=== PATIENT | male | born 1930 | race Caucasian/White ===

== ENCOUNTER → 2016-07-27 | Outpatient (CLI) | payer MEDICARE, BC ==
[2016-07-27 18:01] LABS: Blood Urea Nitrogen 19 mg/dL (9-20); Non-African American GFR(MDRD) >60 (>60 ml/min/1.73 sqM)
--- NOTE | 2016-07-27 19:15 | CT ---
EXAMINATION TYPE: CT angio thoracic/abd aorta DATE OF EXAM: 07/27/2016 6:58 PM COMPARISON: NONE HISTORY: Follow-up AAA. CT DLP: 1020.00 mGycm Automated exposure control for dose reduction was used. TECHNIQUE: Performed without and with IV Contrast, patient injected with 100 mL of Omnipaque 350. There are 3-D post processed images.. FINDINGS: Thoracic and abdominal aorta are atheromatous. There is patchy scarring and atelectasis at the lung b ases. There is a fusiform aneurysm of the lower abdominal aorta below the renal arteries. This measur es up to 5.4 cm in anterior posterior dimension. There is 2.5 cm thrombus on the anterior wall. Liver shows no focal defect. Bile ducts are not dilated. There is no pancreatic mass. There are small enhancing nodules in the spleen that could relate to hemangiomata. There is a 3 cm left renal cortic al cyst. There is no hydronephrosis. There are left renal parapelvic cysts. There is no retroperitone al adenopathy. There is dilation there are multilevel spondylotic changes in the thoracic and lumbar spine. Of the common iliac arteries. These measure up to 2 cm. 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 THIS MEASURES UP TO 5.6 CM IN DIAM ETER AND MEASURES SLIGHTLY LARGER THAN OLD EXAM WHEN IT MEASURES 5.1 CM. NO EVIDENCE OF LEAKAGE. 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 THERE IS PATCHY SCARRING AND ATELECTASIS AT THE MARIA LUISA NG BASES THAT IS SLIGHTLY IMPROVED COMPARED TO OLD EXAM.
== END ==
LOC: RADCTMAIN 07-20 17:21
PROVIDERS: ATTEND Internal Medicine
DX: I71.4 Abdominal aortic aneurysm, without rupture (principal)
CPT/HCPCS: 82565; 84520; 75635; 71275; 36415; Q9967

== ENCOUNTER 2016-12-11 07:29 | Day surgery (SDC) | payer MEDICARE, BC ==
[2016-12-10 09:50] VITALS: BMI 29.0
[~2016-12-11 07:29] MED LIST: LACTATED RINGERS 1,000 ML IV SCH
[2016-12-11 08:19] VITALS: TEMP 97.7
[2016-12-11] MEDS ORDERED: LIDOCAINE 1% 20 ML VIAL (10MG/ML) FOR IV START INTRADERMA ONE (08:19)
[2016-12-11] MEDS ORDERED: ePHEDrine SULFATE/0.9% NACL/PF 50 MG/5 ML SYRINGE IV ONE (08:21)
[2016-12-11] MEDS ORDERED: PROPOFOL 10 MG/ML 20 ML VIAL IV ONE (08:21)
[2016-12-11 08:33] LABS: Glucose,Whole Blood 131 mg/dL (75-99)
--- NOTE | 2016-12-11 08:49 | P.DS ---
Providers Attending physician: Molly Matt Primary care physician: Pattie Torres Plan - Discharge Summary New Discharge Prescriptions: No Action Losartan [Cozaar] 25 mg PO QAM Cetirizine HCl [Zyrtec] 10 mg PO DAILY Atenolol [Tenormin] 25 mg PO QAM sitaGLIPtin [Januvia] 50 mg PO DAILY Ezetimibe/Simvastatin [Vytorin 10-20 mg Tablet] 1 tab PO DAILY Hydrocodone/Acetaminophen [Lomax 5-325] 1 each PO Q6HR PRN #30 tab PRN Reason: Pain Multivitamins, Thera [Multivitamin (formulary)] 1 tab PO DAILY Discharge Medication List Atenolol [Tenormin] 25 mg PO QAM 09/26/15 [History] Cetirizine HCl [Zyrtec] 10 mg PO DAILY 09/26/15 [History] Losartan [Cozaar] 25 mg PO QAM 09/26/15 [History] Ezetimibe/Simvastatin [Vytorin 10-20 mg Tablet] 1 tab PO DAILY 12/13/15 [History ] Hydrocodone/Acetaminophen [Lomax 5-325] 1 each PO Q6HR PRN #30 tab 12/13/15 [Rx] sitaGLIPtin [Januvia] 50 mg PO DAILY 12/13/15 [History] Multivitamins, Thera [Multivitamin (formulary)] 1 tab PO DAILY 12/10/16 [History ] Activity/Diet/Wound Care/Special Instructions: 1. Follow-up primary care physician secondary to prominent prostate 2. Diverticular diet 3. Follow-up in office 1 week for results of pathology
--- NOTE | 2016-12-11 08:49 | P.OP ---
Date of Procedure: 12/11/16 Preoperative Diagnosis: Prior questionable colon polyp Postoperative Diagnosis: Colon polyp at 90 cm, colon polyp at 30 cm, internal hemorrhoids, extensive diverticuli Procedure(s) Performed: Colonoscopy Anesthesia: MAC Surgeon: Molly Matt Estimated Blood Loss (ml): 0 IV fluids (ml): 300 Pathology: other (90 cm, polyp 30 cm) Condition: stable Disposition: PACU Indications for Procedure: Prior history of questionable colon polyp Operative Findings: Polyp at 90 cm, polyp at 30 cm, extensive sigmoid diverticuli, internal hemorrhoids Description of Procedure: Patient was taken to the endoscopy suite and following sedation rectal exam was performed. Patient was noted to have good sphincter tone, prominent prostate, no masses of concern. The colonoscope was passed through the anus into the rectum. Was passed through the sigmoid colon up to splenic flexure. Patient was noted to have extensive diverticuli was passed through the transverse colon hepatic flexure right colon down to the area of the cecum. An introduction of the scope at 90 cm was noted to be a polypoid lesion. This was removed with snare polypectomy and retrieved. The specimen was 6 minutes were taken to withdraw the scope from the cecum to the area of the rectum. No lesions of concern were noted in the cecum or right colon. No lesions of concern were noted in the transverse colon. A 90 cm the area of the prior polypectomy was present. As the scope was withdrawn the patient was noted again to have extensive sigmoid diverticuli. At approximately 30 cm a small polypoid change was noted in the mucosa and this was biopsied/removed with cold biopsy forceps. The scope was brought down into the rectum where it was retroflexed. Internal hemorrhoids were identified. Impression/plan: 1. Polypoid change at 90 cm removed with snare polypectomy and retrieved 2. Polypoid mucosal change at 30 cm biopsied/removed with cold biopsy specimen sent to pathology 3. Extensive sigmoid diverticuli 4. Internal hemorrhoids 5. Prominent prostate Plan: 1. Await results of polypectomy most likely repeat scope in 3 years 2. Conservative management of diverticuli and hemorrhoids 3. Follow-up with prominent prostate with primary care physician
--- NOTE | 2016-12-11 08:50 | P.DS ---
Providers Attending physician: Molly Matt Primary care physician: Pattie Torres Plan - Discharge Summary New Discharge Prescriptions: No Action Losartan [Cozaar] 25 mg PO QAM Cetirizine HCl [Zyrtec] 10 mg PO DAILY Atenolol [Tenormin] 25 mg PO QAM sitaGLIPtin [Januvia] 50 mg PO DAILY Ezetimibe/Simvastatin [Vytorin 10-20 mg Tablet] 1 tab PO DAILY Hydrocodone/Acetaminophen [Hiland 5-325] 1 each PO Q6HR PRN #30 tab PRN Reason: Pain Multivitamins, Thera [Multivitamin (formulary)] 1 tab PO DAILY Discharge Medication List Atenolol [Tenormin] 25 mg PO QAM 09/26/15 [History] Cetirizine HCl [Zyrtec] 10 mg PO DAILY 09/26/15 [History] Losartan [Cozaar] 25 mg PO QAM 09/26/15 [History] Ezetimibe/Simvastatin [Vytorin 10-20 mg Tablet] 1 tab PO DAILY 12/13/15 [History ] Hydrocodone/Acetaminophen [Hiland 5-325] 1 each PO Q6HR PRN #30 tab 12/13/15 [Rx] sitaGLIPtin [Januvia] 50 mg PO DAILY 12/13/15 [History] Multivitamins, Thera [Multivitamin (formulary)] 1 tab PO DAILY 12/10/16 [History ] Activity/Diet/Wound Care/Special Instructions: 1. Follow-up primary care physician secondary to prominent prostate 2. Diverticular diet 3. Follow-up in office 1 week for results of pathology Discharge Disposition: HOME SELF-CARE
[2016-12-11 09:15] VITALS: BP 114/67; PULSE 70; RESP 18
== END 2016-12-11 09:32 | disposition home or self-care (01) ==
LOC: ORWHC2ENDO 07:29
PROVIDERS: ATTEND Surgery
DX: D12.3 Benign neoplasm of transverse colon (principal); D12.5 Benign neoplasm of sigmoid colon; K57.30 Diverticulosis of large intestine without perforation or abscess without bleeding; K64.8 Other hemorrhoids; I10 Essential (primary) hypertension; E11.9 Type 2 diabetes mellitus without complications; Z79.84 Long term (current) use of oral hypoglycemic drugs; Z79.82 Long term (current) use of aspirin; M19.90 Unspecified osteoarthritis, unspecified site; Z87.442 Personal history of urinary calculi; Z79.899 Other long term (current) drug therapy; Z80.0 Family history of malignant neoplasm of digestive organs; Z88.2 Allergy status to sulfonamides; Z91.041 Radiographic dye allergy status
CPT/HCPCS: 88305; 45380; 45385; J2704

== ENCOUNTER → 2017-03-21 | Outpatient (CLI) | payer MEDICARE, BC ==
[2017-03-21 08:13] LABS: Blood Urea Nitrogen 19 mg/dL (9-20)
--- NOTE | 2017-03-21 09:25 | CT ---
EXAMINATION TYPE: CT angio abd aorta wo/w con DATE OF EXAM: 03/21/2017 COMPARISON: 07/27/2016 and 08/03/2015 HISTORY: Abdominal Aortic Aneurysm CT DLP: 805.0 mGycm, Automated Exposure Control for Dose Reduction was Utilized. CONTRAST: CT scan of the abdomen and pelvis is performed with oral and with IV Contrast, patient injected with 100 mL of Omnipaque [address] angiography protocol with coronal and sagittal reformats and delayed i mages. 3-D images of the vasculature of the abdomen eand pelvis were obtained at a separate workstati on. FINDINGS: VASCULAR: There is redemonstration of a fusiform infrarenal abdominal aortic aneurysm originating javid roximately 2.8 cm below the left renal artery (lower renal artery). Additionally there is incidental note of 2 right renal arteries. The fusiform abdominal aortic aneurysm contains a crescentic area of eccentric anterior mural plaquing without intramural hematoma on the unenhanced images occupying appr oximately 50% of the luminal diameter. There is stability in size from the prior exam of 07/27/2016 as this measures up to 5.6 x 4.5 x 5.8 cm in anterior posterior by transverse by craniocaudal dimension measured on series 6 image 28 and coronal image 45 (postcontrast series 15). There is patency withou t hemodynamically significant stenosis of the celiac artery, superior mesenteric artery, solitary lef t renal artery, 2 right renal arteries, and of the SHANTE. No contrast extravasation or evidence of rupt ure. The abdominal aortic aneurysm just proximal to the aortoiliac bifurcation. The right common iliac art elton measures up to 1.3 cm and is nondilated and there is focal aneurysmal dilatation of the left comm on iliac artery proximally measuring up to 2.1 cm. LUNG BASES: There is a right posterior diaphragmatic hernia, pleural parenchymal scarring, bibasilar atelectasis, early fibrotic changes, and small hiatal hernia and the visualized lung bases. LIVER/GB: No significant abnormality is appreciated. Gallbladder appears contracted or surgically a bsent although no cholecystectomy clips are seen within the gallbladder fossa. PANCREAS: No significant abnormality is seen. SPLEEN: Punctate parenchymal calcification is seen relating to prior benign granulomatous disease. We ll-circumscribed arterially enhancing lesions measuring 7 mm and 1.1 cm are present on the arterial p hase and seen on the prior exam of 07/27/2016, unchanged in size. 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 ADRENALS: No significant abnormality is seen. KIDNEYS: 2 nonobstructing renal calculi are seen on the left and one on the right measuring up to 3 m m on the left and 2 mm on the right. A nonenhancing 3.1 cm cortically-based left renal cyst is presen t as well as multiple left renal sinus cysts. BOWEL: Scattered colonic diverticula are present without pericolonic fat stranding. PROSTATE/SEMINAL VESICLES: Small bilateral fat filled angle hernias are noted. Prostate gland is inc ompletely visualized. LYMPH NODES: No greater than 1cm abdominal or pelvic lymph nodes are appreciated. OSSEOUS STRUCTURES: Multilevel moderate to severe degenerative changes are seen of the visualized tho racolumbar spine. Postsurgical changes of posterior element resection are also seen within the lumbar spine. Partial visualization of an S-shaped scoliotic curvature of the thoracolumbar spine is seen. IMPRESSION: 1. Stability in comparison to the prior exam of an infrarenal fusiform abdominal aortic aneurysm cont aining eccentric mural plaquing/thrombus creating stenosis of approximately 50%. This aneurysm is enl arged in comparison to exam of 12/13/2015. No evidence of rupture. 2. 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 3. Bilateral nonobstructing renal calculi, simple left renal cyst, and left renal sinus cysts.
== END | disposition home or self-care (01) ==
LOC: RADCTMAIN 03-19 15:56
PROVIDERS: ATTEND Internal Medicine
DX: I71.4 Abdominal aortic aneurysm, without rupture (principal); I77.89 Other specified disorders of arteries and arterioles
CPT/HCPCS: 82565; 84520; 75635; 36415; Q9967

== ENCOUNTER 2017-09-16 11:44 | Observation (INO) | payer MEDICARE, BC ==
--- NOTE | 2017-09-16 12:06 | ED ---
Chest Pain HPI - General Chief Complaint: Chest Pain Stated Complaint: Chest Pain, weakness Time Seen by Provider: 09/16/17 12:00 Source: patient, RN notes reviewed Mode of arrival: wheelchair Limitations: no limitations - History of Present Illness Initial Comments: This is a 86-year-old male who was sent in from his doctor's office with complaints of chest discomfort. He apparently had an onset at 3 AM this morning of May with elevated heart rate with chest discomfort he states he been having sharp chest pain off the past 2 weeks also some left-sided chest tightness over the same period time. He currently is pain-free he does have an abdominal aortic aneurysm that is being observed at this time. No fevers chills nausea vomiting does feel generally weak however since his 3 AM episode. No other known modifying factors at this time MD Complaint: chest pain - Related Data Home Medications Medication Instructions Recorded Confirmed Atenolol [Tenormin] 25 mg PO QAM 09/26/15 09/16/17 Cetirizine HCl [Zyrtec] 10 mg PO DAILY 09/26/15 09/16/17 Losartan [Cozaar] 25 mg PO QAM 09/26/15 09/16/17 Ezetimibe/Simvastatin [Vytorin 1 tab PO DAILY 12/13/15 09/16/17 10-20 mg Tablet] Multivitamins, Thera [Multivitamin 1 tab PO DAILY 12/10/16 09/16/17 (formulary)] Aspirin [Aspirin EC] 500 mg PO DAILY 09/16/17 09/16/17 Dapagliflozin Propanediol [Farxiga] 5 mg PO DAILY 09/16/17 09/16/17 Allergies Allergy/AdvReac Type Severity Reaction Status Date / Time Sulfa (Sulfonamide Allergy Severe throat,mouth Verified 09/16/17 12:55 Antibiotics) swelling Iodinated Contrast- Oral and Allergy very hot Verified 09/16/17 12:55 IV Dye feeling [Iodinated Contrast Media - IV Dye] Review of Systems ROS Statement: Those systems with pertinent positive or pertinent negative responses have been documented in the HPI. ROS Other: All systems not noted in ROS Statement are negative. EKG Findings - EKG Results: EKG: interpreted by ROOPA, sinus rhythm (EKG shows a sinus bradycardia 58 [place] interval 170 QRS duration 104 QT since QTC 464/[address] elevation or depression seen at this time) Past Medical History Past Medical History: Diabetes Mellitus, GERD/Reflux, Hypertension, Osteoarthritis (OA) Additional Past Medical History / Comment(s): hx polyps,irregular heartrate, hx diverticulitis, kidney stones, enlarged aortic aneurysm History of Any Multi-Drug Resistant Organisms: None Reported Past Surgical History: Appendectomy, Back Surgery, Bowel Resection, Cholecystectomy, Tonsillectomy Additional Past Surgical History / Comment(s): rt cataract, back surgery x 3, mau knee replacement (rt x 2, left x 1) Past Anesthesia/Blood Transfusion Reactions: Postoperative Nausea & Vomiting ( PONV) Additional Past Anesthesia/Blood Transfusion Reaction / Comment(s): no hx blood transfusion Past Psychological History: No Psychological Hx Reported Smoking Status: Never smoker Past Alcohol Use History: None Reported Past Drug Use History: None Reported - Past Family History Mother Family Medical History: Cancer General Exam - General Exam Comments Initial Comments: This is a well-developed well-nourished awake alert oriented times 3 male Limitations: no limitations General appearance: alert, in no apparent distress Head exam: Present: atraumatic, normocephalic, normal inspection Eye exam: Present: normal appearance, PERRL, EOMI. Absent: scleral icterus, conjunctival injection, periorbital swelling ENT exam: Present: normal exam, mucous membranes moist Neck exam: Present: normal inspection. Absent: tenderness, meningismus, lymphadenopathy Respiratory exam: Present: normal lung sounds bilaterally. Absent: respiratory distress, wheezes, rales, rhonchi, stridor Cardiovascular Exam: Present: normal rhythm, bradycardia, normal heart sounds. Absent: systolic murmur, diastolic murmur, rubs, gallop, clicks GI/Abdominal exam: Present: soft, normal bowel sounds. Absent: distended, tenderness, guarding, rebound, rigid, bruit, pulsatile mass, hernia Extremities exam: Present: normal inspection, full ROM, normal capillary refill. Absent: tenderness, pedal edema, joint swelling, calf tenderness Back exam: Present: normal inspection Neurological exam: Present: alert, oriented X3, CN II-XII intact Psychiatric exam: Present: normal affect, normal mood Skin exam: Present: warm, dry, intact, normal color. Absent: rash Course Vital Signs 09/16/17 09/16/17 09/16/17 11:48 12:50 14:30 Temperature 98.4 F Pulse Rate 60 55 L 52 L Respiratory 18 18 18 Rate Blood Pressure 137/75 131/64 131/70 O2 Sat by Pulse 95 94 L 98 Oximetry Chest Pain MDM - MDM I did review the imaging and report no acute findings. The patient will be admitted for evaluation by cardiology currently is pain-free. Critical Care Time Critical Care Time: Yes Critical Care Time: 31 minutes of critical care time which includes initial presentation with history physical labs x-rays discussed with patient's physician discussing with the admitting physician admission orders and documentation the above. Disposition Clinical Impression: Unstable angina pectoris Disposition: ADMITTED IP TO THIS HOSP Condition: Stable Referrals: Pattie Torres MD [Primary Care Provider] - 1-2 days
[2017-09-16 12:32] LABS: INR 1.1 (<1.2); Partial Thromboplastin Time 24.8 sec (22.0-30.0); Prothrombin Time 10.4 sec (9.0-12.0)
[2017-09-16 12:36] LABS: Albumin 4.1 g/dL (3.5-5.0); Calcium 9.4 mg/dL (8.4-10.2); Magnesium 2.2 mg/dL (1.6-2.3); Potassium 4.5 mmol/L (3.5-5.1); Total Bilirubin 1.1 mg/dL (0.2-1.3); Total Protein 6.6 g/dL (6.3-8.2)
--- NOTE | 2017-09-16 12:36 | XR ---
EXAMINATION TYPE: XR chest 2V DATE OF EXAM: 09/16/2017 COMPARISON: CT 07/27/2016 HISTORY: 86-year-old male with chest pain TECHNIQUE: AP and lateral views FINDINGS: Heart normal size. Elongated/ectatic thoracic aorta. Strandy atelectasis at the left base. Mild inter stitial prominence and mild hyperinflation. No consolidation or pleural effusion. IMPRESSION: 1. COPD with mild emphysema. 2. Strandy basilar atelectasis or scarring. 3. No acute process seen.
[2017-09-16 12:41] LABS: Basophils # (A) 0.1 k/uL (0-0.2); Basophils % (A) 1 %; Eosinophils # (A) 0.1 k/uL (0-0.7); Eosinophils % (A) 2 %; HCT 44.2 % (39.0-53.0); HGB 14.9 gm/dL (13.0-17.5); Lymphocytes # (A) 1.5 k/uL (1.0-4.8); Lymphocytes % (A) 26 %; MCH 32.6 pg (25.0-35.0); MCHC 33.7 g/dL (31.0-37.0); MCV 96.5 fL (80.0-100.0); Mean Platelet Volume 6.6; Monocytes # (A) 0.3 k/uL (0-1.0); Monocytes % (A) 6 %; Neutrophils # (A) 3.3 k/uL (1.3-7.7); Neutrophils % (A) 60 %; Platelet Count 152 k/uL (150-450); RBC 4.58 m/uL (4.30-5.90); RDW 14.1 % (11.5-15.5); WBC 5.6 k/uL (3.8-10.6)
[2017-09-16 12:42] LABS: Creatine Kinase 62 U/L (55-170)
[2017-09-16 12:56] LABS: Creatine Kinase MB 1.1 ng/mL (0.0-2.4); Troponin I <0.012 ng/mL (0.000-0.034)
[2017-09-16] MEDS ORDERED: HEPARIN SODIUM,PORCINE 5,000 UNIT/ML 1 ML VIAL IV ONE (14:36)
[2017-09-16] MEDS ORDERED: NITROGLYCERIN SL TABS 0.4 MG TAB SUBLINGUAL PRN (14:36)
[2017-09-16] MEDS ORDERED: HEPARIN SOD,PORK IN 0.45% NACL 25,000 UNIT in 0.45% NACL 1 500ML.BAG IV SCH (14:45)
[2017-09-16] MEDS ORDERED: SODIUM CHLORIDE 0.9% 1,000 ML IV SCH (14:45)
[2017-09-16 19:10] LABS: Creatine Kinase 46 U/L (55-170)
[2017-09-16 19:24] LABS: Creatine Kinase MB 0.9 ng/mL (0.0-2.4); Troponin I <0.012 ng/mL (0.000-0.034)
[2017-09-16] MEDS: NITROGLYCERIN OINT 1 INCH/GM PACKET TOPICAL SCH ×2 (19:25→23:01)
[2017-09-16] MEDS ORDERED: ACETAMINOPHEN TAB 325 MG TAB PO PRN (21:20)
[2017-09-16 21:37] LABS: Glucose,Whole Blood 101 mg/dL (75-99)
[2017-09-16] MEDS ORDERED: MAG HYDROX/AL HYDROX/SIMETH 30 ML CUP PO PRN (21:55)
[2017-09-16] MEDS: SUCRALFATE 1 GM TAB PO SCH (22:52)
[2017-09-17 00:49] LABS: Creatine Kinase 47 U/L (55-170)
[2017-09-17 01:00] LABS: Troponin I <0.012 ng/mL (0.000-0.034)
[2017-09-17 02:39] LABS: Cholesterol 127 mg/dL (<200); HDL Cholesterol 45 mg/dL (40-60); LDL Cholesterol,Calculated 65 mg/dL (0-99); Triglycerides 87 mg/dL (<150)
[2017-09-17] MEDS: NITROGLYCERIN OINT 1 INCH/GM PACKET TOPICAL SCH ×2 (04:55→11:33)
[2017-09-17 07:00] LABS: Glucose,Whole Blood 105 mg/dL (75-99)
[2017-09-17 07:46] VITALS: RESP 18
[2017-09-17] MEDS ORDERED: REGADENOSON 0.4 MG/5 ML SYRINGE IV ONE (07:58)
[2017-09-17] MEDS ORDERED: AMINOPHYLLINE 500 MG/20 ML VIAL IV PRN (07:58)
--- NOTE | 2017-09-17 08:05 | P.CRDCN ---
History of Present Illness Consult date: 09/17/17 History of present illness: This is a 86-year-old gentleman with history of hypertension, non-insulin- dependent diabetes mellitus, and also hypercholesterolemia who was admitted to the hospital for evaluation of chest pain and palpitations. Patient also has abdominal aortic aneurysm and has been followed by Dr. Hackett and also at [facility]. Patient was advised close monitoring because stenting of the aneurysm may jeopardize renal arteries. He is also complaining of some irritation and discomfort in the upper abdomen. He went to see his primary care physician yesterday for blood draw and mentioned to them that he had an episode where he had a rapid heartbeat that woke him up around 3:00 the night before. Apparently it lasted for several minutes and then subsided spontaneously. He is also having some feeling of tightness across the chest for couple weeks. Seems to be in nonexertional, nonradiating and not associated with any nausea, vomiting or sweating. His EKG showed sinus rhythm and sinus bradycardia. Cardiac enzymes are negative. Patient is being scheduled for echocardiogram and nuclear stress test with Lexiscan. Patient may also may need outpatient monitoring with event monitor. Review of Systems As per the chart Past Medical History Past Medical History: Diabetes Mellitus, GERD/Reflux, Hypertension, Osteoarthritis (OA) Additional Past Medical History / Comment(s): hx polyps,irregular heartrate, hx diverticulitis, kidney stones, enlarged aortic aneurysm History of Any Multi-Drug Resistant Organisms: None Reported Past Surgical History: Appendectomy, Back Surgery, Bowel Resection, Cholecystectomy, Tonsillectomy Additional Past Surgical History / Comment(s): rt cataract, back surgery x 3, mau knee replacement (rt x 2, left x 1) Past Anesthesia/Blood Transfusion Reactions: Postoperative Nausea & Vomiting ( PONV) Additional Past Anesthesia/Blood Transfusion Reaction / Comment(s): no hx blood transfusion Smoking Status: Never smoker - Past Family History Mother Family Medical History: Cancer Medications and Allergies Home Medications Medication Instructions Recorded Confirmed Type Atenolol [Tenormin] 25 mg PO QAM 09/26/15 09/16/17 History Cetirizine HCl [Zyrtec] 10 mg PO DAILY 09/26/15 09/16/17 History Losartan [Cozaar] 25 mg PO QAM 09/26/15 09/16/17 History Ezetimibe/Simvastatin [Vytorin 1 tab PO DAILY 12/13/15 09/16/17 History 10-20 mg Tablet] Multivitamins, Thera [Multivitamin 1 tab PO DAILY 12/10/16 09/16/17 History (formulary)] Aspirin [Aspirin EC] 500 mg PO DAILY 09/16/17 09/16/17 History Dapagliflozin Propanediol [Farxiga] 5 mg PO DAILY 09/16/17 09/16/17 History Allergies Allergy/AdvReac Type Severity Reaction Status Date / Time Sulfa (Sulfonamide Allergy Severe throat,mouth Verified 09/16/17 12:55 Antibiotics) swelling Iodinated Contrast- Oral and Allergy very hot Verified 09/16/17 12:55 IV Dye feeling [Iodinated Contrast Media - IV Dye] tomato Allergy Rash/Hives Verified 09/16/17 21:32 Physical Exam Vitals: Vital Signs Temp Pulse Pulse Resp BP BP Pulse Ox 09/17/17 07:20 97.7 F 57 L 18 141/57 96 09/17/17 03:42 16 09/17/17 03:38 98.0 F 64 16 132/71 95 09/16/17 23:59 16 09/16/17 23:12 97.7 F 50 L 16 153/65 95 09/16/17 22:02 16 09/16/17 21:55 97.7 F 50 L 16 157/67 94 L 09/16/17 21:00 97.9 F 50 L 16 151/72 96 09/16/17 18:00 98.2 F 61 18 152/69 96 09/16/17 14:30 52 L 18 131/70 98 09/16/17 12:50 55 L 18 131/64 94 L 09/16/17 11:48 98.4 F 60 18 137/75 95 Intake and Output 09/16/17 09/17/17 09/17/17 22:59 06:59 14:59 Intake Total 202.43 Output Total 400 Balance 202.43 -400 Intake: Intake, IV Titration 202.43 Amount Heparin Sod,Pork in 0.45% 202.43 NaCl 25,000 unit In 0.45 % NaCl 1 500ml.bag @ 12 UNITS/KG/HR 19.59 mls/hr IV .Q24H [facility] Rx#: [id number] Output: Urine 400 Other: # Voids 1 1 Weight 80.5 kg GENERAL EXAM: Patient is alert and oriented and doesn't appear to be in any acute distress HEENT: Normocephalic. Normal reaction of pupils, equal size, normal range of extraocular motion. No erythema or exudates in the throat. NECK: No masses, no nuchal rigidity. CHEST: No chest wall deformity. LUNGS: Equal air entry with no crackles or wheeze. HEART: S1 and S2 normal with no audible mumurs or gallops. Regular rhythm, femorals equal on both sides.. ABDOMEN: No hepatosplenomegaly, normal bowel sounds, no guarding or rigidity. SKIN: No rashes CENTRAL NERVOUS SYSTEM: No focal deficits. EXTREMITIES: No cyanosis, clubbing or edema. Results 09/16/17 12:08 09/16/17 12:08 Cardiac Enzymes 09/16/17 09/16/17 09/16/17 Range/Units 12:08 12:08 18:10 AST 30 (17-59) U/L CK-MB (CK-2) 1.1 0.9 (0.0-2.4) ng/mL Troponin I <0.012 <0.012 (0.000-0.034) ng/mL 09/17/17 Range/Units 00:14 AST (17-59) U/L CK-MB (CK-2) 1.0 (0.0-2.4) ng/mL Troponin I <0.012 (0.000-0.034) ng/mL Coagulation 09/16/17 09/17/17 09/17/17 Range/Units 12:08 00:14 06:48 PT 10.4 (9.0-12.0) sec APTT 24.8 45.4 H 55.4 H (22.0-30.0) sec Lipids 09/16/17 Range/Units 12:08 Triglycerides 87 (<150) mg/dL Cholesterol 127 (<200) mg/dL HDL Cholesterol 45 (40-60) mg/dL CBC 09/16/17 Range/Units 12:08 WBC 5.6 (3.8-10.6) k/uL RBC 4.58 (4.30-5.90) m/uL Hgb 14.9 (13.0-17.5) gm/dL Hct 44.2 (39.0-53.0) % Plt Count 152 (150-450) k/uL Comprehensive Metabolic Panel 09/16/17 Range/Units 12:08 Sodium 143 (137-145) mmol/L Potassium 4.5 (3.5-5.1) mmol/L Chloride 110 H (98-107) mmol/L Carbon Dioxide 20 L (22-30) mmol/L BUN 20 (9-20) mg/dL Creatinine 1.00 (0.66-1.25) mg/dL Glucose 114 H (74-99) mg/dL Calcium 9.4 (8.4-10.2) mg/dL AST 30 (17-59) U/L ALT 33 (21-72) U/L Alkaline Phosphatase 60 (38-126) U/L Total Protein 6.6 (6.3-8.2) g/dL Albumin 4.1 (3.5-5.0) g/dL Current Medications Generic Name Dose Route Start Last Admin Trade Name Freq PRN Reason Stop Dose Admin Acetaminophen 650 mg 09/16/17 21:20 09/16/17 21:56 Tylenol Tab PO 650 mg Q4HR PRN Administration Fever and/ or Pain Al Hydroxide/Mg Hydroxide 30 ml 09/16/17 21:55 Maalox PO Q4HR PRN GI Upset Aminophylline 100 mg 09/17/17 07:58 Aminophylline IV ONCE PRN Patient Response Aspirin 325 mg 09/17/17 09:00 Aspirin PO DAILY [facility] Atenolol 25 mg 09/17/17 09:00 Tenormin PO QAM [facility] Atorvastatin Calcium 10 mg 09/17/17 09:00 Lipitor PO DAILY [facility] Ezetimibe 10 mg 09/17/17 09:00 Zetia PO DAILY [facility] Heparin Sodium/Sodium Chloride 500 mls @ 19.59 mls/hr 09/16/17 14:45 01:32 25,000 unit/ Sodium Chloride IV 14 units/kg/hr .Q24H ENZO 22.86 mls/hr Titration Protocol 12 UNITS/KG/HR Sodium Chloride 1,000 mls @ 20 mls/hr 09/16/17 14:45 09/16/17 15:13 Saline 0.9% IV 20 mls/hr .Q24H ENZO Administration Loratadine 10 mg 09/17/17 09:00 Claritin PO DAILY [facility] Losartan Potassium 25 mg 09/17/17 09:00 Cozaar PO QAM [facility] Multivitamins 1 each 09/17/17 12:00 Theragran PO 1200 ENZO Nitroglycerin 1 inch 09/16/17 18:00 09/17/17 04:55 Nitro-Bid Oint TOPICAL Not Given Q6HR [facility] Nitroglycerin 0.4 mg 09/16/17 14:36 Nitrostat SUBLINGUAL Q5M PRN Chest Pain Patient's Own Med ( 5 mg 09/17/17 09:00 Dapagliflozin PO Propanediol [Farxiga DAILY [facility] ] 5 Mg) Regadenoson 0.4 mg 09/17/17 07:58 Lexiscan IV 09/17/17 07:59 ONCE ONE Sucralfate 1 gm 09/16/17 21:55 09/16/17 22:52 Carafate PO 1 gm AC-TID [facility] Administration Intake and Output 09/16/17 09/17/17 09/17/17 22:59 06:59 14:59 Intake Total 202.43 Output Total 400 Balance 202.43 -400 Intake: Intake, IV Titration 202.43 Amount Heparin Sod,Pork in 0.45% 202.43 NaCl 25,000 unit In 0.45 % NaCl 1 500ml.bag @ 12 UNITS/KG/HR 19.59 mls/hr IV .Q24H [facility] Rx#: [id number] Output: Urine 400 Other: # Voids 1 1 Weight 80.5 kg 09/16/17 12:08 09/16/17 12:08 EKG Interpretations (text) Sinus rhythm and sinus arrhythmia Assessment and Plan (1) Chest pain Current Visit: Yes Status: Acute Code(s): R07.9 - CHEST PAIN, UNSPECIFIED SNOMED Code(s): 10118990 (2) Palpitations Current Visit: Yes Status: Acute Code(s): R00.2 - PALPITATIONS SNOMED Code (s): 07515114 (3) Hypertension, essential Current Visit: Yes Status: Acute Code(s): I10 - ESSENTIAL (PRIMARY) HYPERTENSION SNOMED Code(s): 02348314 (4) 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 Current Visit: Yes Status: Acute Code(s): E11.39 - TYPE 2 DIABETES W OTH DIABETIC OPHTHALMIC COMPLICATION SNOMED Code(s): 15870510 (5) Non-insulin dependent type 2 diabetes mellitus Current Visit: Yes Status: Acute Code(s): E11.9 - TYPE 2 DIABETES MELLITUS WITHOUT COMPLICATIONS SNOMED Code(s): 26640976 (6) Hyperlipidemia Current Visit: Yes Status: Acute Code(s): E78.5 - HYPERLIPIDEMIA, UNSPECIFIED SNOMED Code(s): 90926247 (7) Abdominal aortic aneurysm Current Visit: Yes Status: Acute Code(s): I71.4 - ABDOMINAL AORTIC ANEURYSM , WITHOUT RUPTURE SNOMED Code(s): 556661430 Plan: This patient is admitted with a bout of palpitations suggestive of possible SVT/ flutter fibrillation. Patient also complaining of chest tightness. So far EKGs and cardiac enzymes are negative. He is being scheduled for an echocardiogram and also Lexiscan stress test. Patient also has abdominal aortic aneurysm that is being monitored. If the Lexiscan stress test doesn't show any ischemia, patient could be discharged home. Patient could be monitored with event monitor as an outpatient.
[2017-09-17] MEDS ORDERED: ASPIRIN 325 MG TAB PO SCH (09:00)
[2017-09-17] MEDS ORDERED: LOSARTAN 25 MG TAB PO SCH (09:00)
[2017-09-17] MEDS ORDERED: ATORVASTATIN 10 MG TAB PO SCH (09:00)
[2017-09-17] MEDS ORDERED: ATENOLOL 25 MG TAB PO SCH (09:00)
[2017-09-17] MEDS ORDERED: EZETIMIBE 10 MG TAB PO SCH (09:00)
[2017-09-17] MEDS ORDERED: NON-FORMULARY DRUG (Ezetimibe/Simvastatin [Vytorin 10-20 Mg Tablet] 1 TAB) PO SCH (09:00)
[2017-09-17] MEDS ORDERED: LORATADINE 10 MG TAB PO SCH (09:00)
[2017-09-17] MEDS ORDERED: PATIENT'S OWN MED (Dapagliflozin Propanediol [Farxiga] 5 MG) PO SCH (09:00)
--- NOTE | 2017-09-17 09:44 | ECHOF ---
Referral Reason:Chest pain and cardiomyopathy MEASUREMENTS -------- HEIGHT: 167.6 cm WEIGHT: 80.3 kg BP: 141/57 IVSd: 1.6 cm (0.6 - 1.1) LVIDd: 4.2 cm (3.9 - 5.3) LVPWd: 1.4 cm (0.6 - 1.1) IVSs: 1.9 cm LVIDs: 2.0 cm LVPWs: 2.0 cm LAESV Index (A-L): 45.38 ml/m Ao Diam: 3.8 cm (2.0 - 3.7) AV Cusp: 2.4 cm (1.5 - 2.6) LA Diam: 3.3 cm (2.7 - 3.8) MV EXCURSION: 14.924 mm (> 18.000) MV EF SLOPE: 99 mm/s (70 - 150) EPSS: 1.2 cm MV E Matt: 0.38 m/s MV DecT: 315 ms MV A Matt: 0.52 m/s MV E/A Ratio: 0.73 AR PHT: 334 ms RAP: 5.00 mmHg RVSP: 20.42 mmHg FINDINGS -------- Resting bradycardia (HR<60bpm). This was a technically good study. The left ventricular size is normal. There is moderate concentric left ventricular hypertrophy. O verall left ventricular systolic function is normal with, an EF between 55 - 60 %. The right ventricle is normal in size and function. The left atrium is normal in size. The right atrium is normal in size. There is mild aortic regurgitation. The mitral valve leaflets are mildly thickened. Mild mitral regurgitation is present. Mild tricuspid regurgitation present. The right ventricular systolic pressure, as measured by Doppl er, is 20.42mmHg. Pulmonic valve appears structurally normal. The aortic root is mildy dilated. CONCLUSIONS -------- 1. Resting bradycardia (HR<60bpm). 2. This was a technically good study. 3. The left ventricular size is normal. 4. There is moderate concentric left ventricular hypertrophy. 5. The right ventricle is normal in size and function. 6. The left atrium is normal in size. 7. The right atrium is normal in size. 8. There is mild aortic regurgitation. 9. The mitral valve leaflets are mildly thickened. 10. Mild mitral regurgitation is present. 11. Mild tricuspid regurgitation present. 12. The right ventricular systolic pressure, as measured by Doppler, is 20.42mmHg. 13. Pulmonic valve appears structurally normal. RIGHT OF WAY AGENT: Flavia Montague RDCS
--- NOTE | 2017-09-17 11:04 | NM ---
EXAMINATION TYPE: NM stress lexiscan cardiolite DATE OF EXAM: 09/17/2017 COMPARISON: NONE HISTORY: Chest pain TECHNIQUE: After the intravenous administration of 10.8 mCi Tc 99m Sestamibi - Cardiolite resting SP ECT images acquired 55 minutes post injection. The patient received 0.4mg Lexiscan, 25.3 mCi Tc 99m Sestamibi - Stress images obtained [address] injection FINDINGS: Review of stress and rest SPECT images demonstrates no distinct perfusion abnormality. Gated analysi s shows questionable paradoxical apical wall motion with an estimated left ventricular ejection fract ion of 60 %. IMPRESSION: No scintigraphic evidence for reversible ischemia. Consider echocardiographic correlation for wall mo tion, ejection fraction
[2017-09-17] MEDS: SUCRALFATE 1 GM TAB PO SCH (11:36)
[2017-09-17 11:40] VITALS: BP 129/71; PULSE 72; TEMP 98.5
--- NOTE | 2017-09-17 11:48 | EST ---
EXERCISE STRESS DATE OF SERVICE: 09/17/2017 AGE: 86 SEX: Male HT: 5'6" WT: 180 PROTOCOL: Lexiscan Cardiolite STAGE: DURATION OF EXERCISE: HEART RATE REST: 59 BLOOD PRESSURE REST: 138/72 MAXIMUM HEART RATE ACHIEVED: 91 MAXIMUM BLOOD PRESSURE: 137/79 85% MPHR: 116 100% MPHR: 136 METS: INDICATIONS: Chest pain. CLINICAL INFORMATION: Baseline EKG revealed normal sinus rhythm with poor R-wave progression over precordial leads. With Lexiscan administration, heart rate changed from 59 to 91 beats per minute. Blood pressure changed from 138/72 to 137/79. EKG did not reveal any new significant changes. Rare isolated PVCs were noted. There were minor resting EKG changes to begin with. By EKG criteria, this is an unremarkable Lexiscan stress test with minor resting EKG changes. The nuclear scan results, which are more pertinent, will be reported by the radiologist. OMAR / JOSE RN: [id number] /
[2017-09-17] MEDS ORDERED: MULTIVITAMINS, THERA 1 EACH TAB PO SCH (12:00)
[2017-09-17 12:30] LABS: Glucose,Whole Blood 166 mg/dL (75-99)
== END 2017-09-17 13:48 | disposition home or self-care (01) ==
LOC: EC 11:44 → 3OBS 14:41
PROVIDERS: ADMIT Internal Medicine; ATTEND Internal Medicine
DX: R07.89 Other chest pain (principal); R53.1 Weakness; R00.0 Tachycardia, unspecified; R00.2 Palpitations; I71.4 Abdominal aortic aneurysm, without rupture; K21.9 Gastro-esophageal reflux disease without esophagitis; E78.00 Pure hypercholesterolemia, unspecified; E78.5 Hyperlipidemia, unspecified; I10 Essential (primary) hypertension; E11.39 Type 2 diabetes mellitus with other diabetic ophthalmic complication; M19.90 Unspecified osteoarthritis, unspecified site; Z79.899 Other long term (current) drug therapy; Z79.82 Long term (current) use of aspirin; Z79.84 Long term (current) use of oral hypoglycemic drugs; Z88.2 Allergy status to sulfonamides; Z91.041 Radiographic dye allergy status; Z91.018 Allergy to other foods; Z87.442 Personal history of urinary calculi; Z90.49 Acquired absence of other specified parts of digestive tract; Z80.9 Family history of malignant neoplasm, unspecified
CPT/HCPCS: 99291; 96376 ×2; 96365 ×2; 96366 ×8; 36415; 93005; 93017; 93306; 93270; 93271; 83880; 80061; 80053; 82550 ×2; 82553 ×2; 83735; 84484 ×2; 85025; 85610; 85730 ×2; 71046; 78452; G0378 ×2; A9500; J1644 ×2; J2785

== ENCOUNTER → 2017-12-24 | Outpatient (CLI) | payer MEDICARE, BC ==
[2017-12-24 13:39] LABS: Blood Urea Nitrogen 21 mg/dL (9-20)
--- NOTE | 2017-12-24 22:40 | CT ---
EXAMINATION TYPE: CT angio abdomen DATE OF EXAM: 12/24/2017 COMPARISON: Prior CT 03/21/2017 HISTORY: f/u aortic aneurysm CT DLP: 597 mGycm, Automated Exposure Control for Dose Reduction was Utilized. CONTRAST: CT scan of the abdomen and pelvis is performed with oral and with IV Contrast, patient injected with 100 mL of Isovue 370. FINDINGS: The abdominal aortic aneurysm now measures approximately 6.1 cm in greatest anterior to pos terior dimension with a similar appearance to prior exam and slight interval growth of approximately 5 mm. Luminal plaque is again noted The inferior renal arteries on the left, 2, do arise from the ane urysm, the accessory renal artery on the right is approximately 1.7 cm from the origin of the aneurys m. The celiac axis, superior mesenteric artery are patent, superior renal arteries are patent bilater ally. Common iliac arteries are ectatic on the left measuring 2.5 cm and on the right 1.5 cm centrall y, internal and external iliac arteries are patent, iliac vasculature is tortuous. LUNG BASES: Similar prior exam, there is likely basilar scarring, groundglass opacity possibly due to atelectasis, interstitial lung disease, posterior diaphragmatic hernia contains fat on the right. LIVER/GB: Stable, patient is post cholecystectomy. PANCREAS: No significant abnormality is seen. SPLEEN: Stable, possible hemangioma anterior aspect of the spleen measures 15 mm. ADRENALS: No significant abnormality is seen. KIDNEYS: Parapelvic cysts are noted on the left, cortical cysts is exophytic of the left and similar appearance. BOWEL: Extensive diverticular change noted in the sigmoid colon. LYMPH NODES: No greater than 1cm ab dominal or pelvic lymph nodes are appreciated. OSSEOUS STRUCTURES: Similar findings, marked scoliosis, degenerative disc changes, facet arthropathy, postop changes noted the lower lumbar spine OTHER: No significant additional abnormality is seen. IMPRESSION: There has been interval growth of the abdominal aortic aneurysm now measuring 6.1 cm.
== END ==
LOC: RADCTMAIN 13:04
PROVIDERS: ATTEND Internal Medicine
DX: I71.4 Abdominal aortic aneurysm, without rupture (principal)
CPT/HCPCS: 82565; 84520; 74175; Q9967; 36415

== ENCOUNTER 2018-10-03 10:48 | Observation (INO) | payer MEDICARE, BC ==
[2018-10-03] MEDS ORDERED: ASPIRIN 81 MG PO STA (11:28)
[2018-10-03] MEDS ORDERED: SODIUM CHLORIDE 0.9% 1,000 ML IV STA ×2 (11:28)
[2018-10-03] MEDS ORDERED: diphenhydrAMINE 50 MG/ML 1 ML VIAL IVP STA (11:43)
[2018-10-03] MEDS ORDERED: methylPREDNISolone SOD SUCCI 125 MG/2 ML VIAL IV STA (11:43)
[2018-10-03] MEDS ORDERED: FAMOTIDINE 20 MG/2 ML VIAL IV STA (11:43)
--- NOTE | 2018-10-03 11:58 | ED ---
Chest Pain HPI - General Source: patient, RN notes reviewed, old records reviewed Mode of arrival: wheelchair Limitations: no limitations <Alanna Armstrong - Last Filed: 10/03/18 14:53> <Silverio Castillo - Last Filed: 10/03/18 15:57> - General Chief Complaint: Chest Pain Stated Complaint: Chest Pain Time Seen by Provider: 10/03/18 11:15 - History of Present Illness Initial Comments: Patient is an 87-year-old male with one week of persistent chest pain. He has a history of abdominal aortic aneurysm repair done at [facility] 2 weeks ago. He denies any fevers or chills. He does report he has had some shortness of breath. Patient reports he called his primary care doctor and was seen today and sent directly here for further evaluation. He reports this chest pain 1 out of 10. He states his neck fitter is Dr. Hicks. He's had no previous cardiac stents. Patient states that he has no significant abdominal pain. He does report he has had chronic back pain for the past few months. Patient denies any other significant symptoms. (Alanna Armstrong) - Related Data Home Medications Medication Instructions Recorded Confirmed Atenolol [Tenormin] 25 mg PO QAM 09/26/15 10/03/18 Cetirizine HCl [Zyrtec] 10 mg PO DAILY 09/26/15 10/03/18 Multivitamins, Thera [Multivitamin 1 tab PO DAILY 12/10/16 10/03/18 (formulary)] Glimepiride [Amaryl] 2 mg PO BID 10/03/18 10/03/18 Previous Rx's Medication Instructions Recorded Aspirin EC [Ecotrin Low Dose] 81 mg PO DAILY #1 tablet. 09/17/17 Allergies Allergy/AdvReac Type Severity Reaction Status Date / Time Sulfa (Sulfonamide Allergy Severe throat,mouth Verified 10/03/18 15:19 Antibiotics) swelling tomato Allergy Rash/Hives Verified 10/03/18 15:19 Iodinated Contrast- Oral and AdvReac very hot Verified 10/03/18 15:19 IV Dye feeling [Iodinated Contrast Media - IV Dye] Review of Systems ROS Other: All systems not noted in ROS Statement are negative. <Alanna Armstrong - Last Filed: 10/03/18 14:53> ROS Other: All systems not noted in ROS Statement are negative. <Silverio Castillo - Last Filed: 10/03/18 15:57> ROS Statement: Those systems with pertinent positive or pertinent negative responses have been documented in the HPI. EKG Findings - EKG Comments: EKG Findings:: EKG shows normal sinus rhythm normal EKG. Ventricular 67 bpm. Verbal is 160 ms. QS duration 90 ms. QT QTc is 434/458 ms. <Alanna Armstrong - Last Filed: 10/03/18 14:53> Past Medical History Past Medical History: Diabetes Mellitus, GERD/Reflux, Hyperlipidemia, Hypertension, Osteoarthritis (OA) Additional Past Medical History / Comment(s): hx polyps,irregular heartrate, hx diverticulitis, kidney stones, enlarged aortic aneurysm History of Any Multi-Drug Resistant Organisms: None Reported Past Surgical History: Appendectomy, Back Surgery, Bowel Resection, Cholecystectomy, Tonsillectomy Additional Past Surgical History / Comment(s): rt cataract, back surgery x 3, mau knee replacement (rt x 2, left x 1) aortic anuerysm repair Past Anesthesia/Blood Transfusion Reactions: Postoperative Nausea & Vomiting (PONV) Additional Past Anesthesia/Blood Transfusion Reaction / Comment(s): no hx blood transfusion Past Psychological History: No Psychological Hx Reported Smoking Status: Never smoker Past Alcohol Use History: None Reported Past Drug Use History: None Reported - Past Family History Mother Family Medical History: Cancer <Alanna Armstrong - Last Filed: 10/03/18 14:53> General Exam Limitations: no limitations General appearance: alert, in no apparent distress Head exam: Present: atraumatic, normocephalic, normal inspection Eye exam: Present: normal appearance, PERRL, EOMI. Absent: scleral icterus, conjunctival injection, periorbital swelling ENT exam: Present: normal exam, mucous membranes moist Neck exam: Present: normal inspection. Absent: tenderness, meningismus, ly mphadenopathy Respiratory exam: Present: normal lung sounds bilaterally. Absent: respiratory distress, wheezes, rales, rhonchi, stridor Cardiovascular Exam: Present: regular rate, normal rhythm, normal heart sounds. Absent: systolic murmur, diastolic murmur, rubs, gallop, clicks GI/Abdominal exam: Present: soft, normal bowel sounds. Absent: distended, tenderness, guarding, rebound, rigid Extremities exam: Present: normal inspection, full ROM, normal capillary refill, other (Dorsalis pedis pulses palpable bilaterally.). Absent: tenderness, pedal edema, joint swelling, calf tenderness Back exam: Present: normal inspection Neurological exam: Present: alert, oriented X3, CN II-XII intact Psychiatric exam: Present: normal affect, normal mood Skin exam: Present: warm, dry, intact, normal color. Absent: rash <Alanna Armstrong - Last Filed: 10/03/18 14:53> - General Exam Comments Initial Comments: this Patient is an 87-year-old male. Alert and oriented 3. No significant distress. (Alanna Armstrong) Course <Silverio Castillo - Last Filed: 10/03/18 15:57> Vital Signs 10/03/18 10/03/18 10/03/18 10:58 11:45 12:01 Temperature 98.7 F Pulse Rate 76 60 Pulse Rate [ 61 Insurance Appraiser ] Respiratory 18 18 Rate Blood Pressure 182/89 184/86 O2 Sat by Pulse 96 96 Oximetry 10/03/18 10/03/18 10/03/18 14:00 14:29 15:00 Temperature Pulse Rate 60 69 66 Pulse Rate [ Insurance Appraiser ] Respiratory 18 18 18 Rate Blood Pressure 193/86 169/94 166/75 O2 Sat by Pulse 97 96 97 Oximetry - Reevaluation(s) Reevaluation #1: 10/03/18 15:57 Case was discussed with practitioner Alanna. Chart and results reviewed. Case was also discussed with Dr. Adrian, who will admit covering for Dr. Torres. Consults will be placed with cardiology and vascular. (Silverio Castillo) Chest Pain [facility] <Alanna Armstrong - Last Filed: 10/03/18 14:53> - [facility] Patient is an 87-year-old male who presents emergency department for evaluation for complaints of chest pain for the past days of some shortness of breath. Patient reports he had an abdominal aortic repair at [facility]. His surgeon was Dr. Mckeon. He denies any significant abdominal pain. Patient underwent lab work and EKG. EKG was reviewed to be normal. Troponin is 0.019. He states his chest pain is a [address] PATEL thoracic aorta was completed. CT PATEL shows Aortic stent graft placement as noted in the interval. There is evidence of endoleak. Aneurysm currently measures of 5.3 cm. There is evidence of abnormal perfusion to the lower pole of the right kidney as well as the lower pole left kidney to reflect infarct. There is an ascending thoracic aortic aneurysm. Patient was informed these results. When A. fib discussed with Dr. Castillo recalled radiologist. There is no emergent intervention and is to be at this time as it is evidence of endoleak. Patient has palpable dorsalis pedis pulses. With history of chest pain and the symptoms would like to him that the Patient for blood pressure treatment monitoring, with cardiology evaluation. All questions were answered. (Alanna Armstrong) Disposition Is patient prescribed a controlled substance at d/c from ED?: No Time of Disposition: 14:56 <Alanna Armstrong - Last Filed: 10/03/18 14:53> <Silverio Castillo - Last Filed: 10/03/18 15:57> Clinical Impression: Chest pain, Hypertension, essential, Endoleak of aortic graft, Non-insulin dependent type 2 diabetes mellitus Disposition: ADMITTED IP TO THIS HOSP Condition: Stable Referrals: Pattie Torres MD [Primary Care Provider] - 1-2 days
[2018-10-03 12:07] LABS: Basophils % (A) 1 %; Eosinophils # (A) 0.1 k/uL (0-0.7); Eosinophils % (A) 1 %; HCT 35.7 % (39.0-53.0); HGB 11.9 gm/dL (13.0-17.5); Lymphocytes # (A) 1.1 k/uL (1.0-4.8); Lymphocytes % (A) 21 %; MCH 31.7 pg (25.0-35.0); MCHC 33.3 g/dL (31.0-37.0); MCV 95.2 fL (80.0-100.0); Monocytes # (A) 0.3 k/uL (0-1.0); Monocytes % (A) 5 %; Neutrophils # (A) 3.5 k/uL (1.3-7.7); Neutrophils % (A) 68 %; Platelet Count 235 k/uL (150-450); RBC 3.75 m/uL (4.30-5.90); RDW 14.4 % (11.5-15.5); WBC 5.1 k/uL (3.8-10.6)
[2018-10-03 12:20] LABS: Albumin 3.8 g/dL (3.5-5.0); Calcium 8.9 mg/dL (8.4-10.2); Magnesium 2.1 mg/dL (1.6-2.3); Partial Thromboplastin Time 24.7 sec (22.0-30.0); Potassium 3.7 mmol/L (3.5-5.1); Prothrombin Time 10.7 sec (9.0-12.0); Total Bilirubin 1.2 mg/dL (0.2-1.3); Total Protein 6.5 g/dL (6.3-8.2)
[2018-10-03] MEDS ORDERED: LABETALOL SYRINGE 5 MG/ML IVP STA ×2 (13:34→14:31)
[2018-10-03 13:56] LABS: Appearance,Urine Clear (Clear); Bilirubin,Urine Negative (Negative); Blood,Urine Negative (Negative); Color,Urine Light Yellow; Glucose,Urine (UA) Negative (Negative); Ketones,Urine Negative (Negative); Leukocyte Esterase,Urine Negative (Negative); Nitrite,Urine Negative (Negative); PH, Urine 6.5 (5.0-8.0); Protein,Urine Negative (Negative); Specific Gravity,Urine 1.011 (1.001-1.035); Urobilinogen,Urine <2.0 mg/dL (<2.0)
--- NOTE | 2018-10-03 14:23 | CT ---
EXAMINATION TYPE: CT angio thor/abd pel aorta DATE OF EXAM: 10/03/2018 COMPARISON: 12/24/2017 HISTORY: Chest pain. Recent Aortic aneurysm repair CT DLP: 1686.6 mGycm CONTRAST: CTA thoracic and abdominal aorta with 3-D reconstruction is performed and without and with IV Contras t, patient injected with 100 ml mL of Isovue 370. Contrast CTA of the thoracic and abdominal aorta was performed from the lung apex through the base of the pelvis. 3-D reconstruction imaging obtained at a separate workstation. CT Chest: THORACIC AORTA: Ascending thoracic aortic aneurysm noted measuring 4.2 cm. Ectasia of the descending thoracic aorta. No dissection or mediastinal hematoma. Mild atheromatous changes are seen. LUNGS: The lungs are clear and free of infiltrate or atelectasis. Basilar parenchymal scarring and mi ld bronchiectasis. No pulmonary nodule or mass is detected. No pleural effusion or CT evidence of in terstitial lung disease. MEDIASTINUM: The heart is not enlarged. No evidence for mediastinal mass or adenopathy. HILAR STRUCTURES: No evidence for mass. No hilar adenopathy is appreciated. OTHER: No significant abnormality. CONTRAST CT ABDOMEN AND PELVIS ABDOMINAL AORTA: Aortoiliac stent graft placement is noted in the interval. There is evidence of endo leak. Aneurysm currently measures 5.3 cm. There is evidence of abnormal perfusion to the lower pole o f the right kidney as well as the lower pole of the left kidney felt to reflect infarct. SMA and edward ac vessels are patent. LIVER/GB- No significant abnormality is seen. PANCREAS- No significant abnormality is seen. SPLEEN- No significant abnormality is seen. ADRENALS- No significant abnormality is seen. KIDNEYS/BLADDER-bilateral nonobstructive nephrolithiasis. 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 Simple cyst left kidney. No solid masses noted. BOWEL- No Significant abnormality GENITAL ORGANS: No gross abnormality seen. LYMPH NODES- No greater than 1cm abdominal or pelvic lymph nodes areappreciated. OSSEOUS STRUCTURES-severe degenerative changes lumbar spine. OTHER- No significant abnormality is seen. IMPRESSION- 1.Aortoiliac stent graft placement is noted in the interval. There is evidence of endoleak. Aneurysm currently measures 5.3 cm. 2.There is evidence of abnormal perfusion to the lower pole of the right kidney as well as the lower pole of the left kidney felt to reflect infarct. 3. Ascending thoracic aortic aneurysm.
[2018-10-03] MEDS ORDERED: Acetaminophen-Codeine 300-30mg TAB PO PRN (14:56)
[2018-10-03] MEDS ORDERED: ACETAMINOPHEN TAB 325 MG TAB PO PRN (14:56)
[2018-10-03] MEDS ORDERED: NALOXONE 0.4 MG/ML 1 ML VIAL IV PRN (14:56)
[2018-10-03] MEDS ORDERED: MORPHINE SULFATE 4 MG/ML SYRINGE IV PRN (14:56)
--- NOTE | 2018-10-03 15:22 | ED ---
Medical Decision Making - Medical Decision Making Multiple contact the patient's surgeon were completed unable to hold of patient's vascular surgeon at this time. - Lab Data Result diagrams: 10/03/18 11:45 10/03/18 11:45 Lab Results 10/03/18 10/03/18 10/03/18 Range/Units 11:45 11:45 11:45 WBC 5.1 (3.8-10.6) k/uL RBC 3.75 L (4.30-5.90) m/uL Hgb 11.9 L (13.0-17.5) gm/dL Hct 35.7 L (39.0-53.0) % MCV 95.2 (80.0-100.0) fL MCH 31.7 (25.0-35.0) pg MCHC 33.3 (31.0-37.0) g/dL RDW 14.4 (11.5-15.5) % Plt Count 235 (150-450) k/uL Neutrophils % 68 % Lymphocytes % 21 % Monocytes % 5 % Eosinophils % 1 % Basophils % 1 % Neutrophils # 3.5 (1.3-7.7) k/uL Lymphocytes # 1.1 (1.0-4.8) k/uL Monocytes # 0.3 (0-1.0) k/uL Eosinophils # 0.1 (0-0.7) k/uL Basophils # 0.0 (0-0.2) k/uL PT (9.0-12.0) sec INR (<1.2) APTT (22.0-30.0) sec Sodium 139 (137-145) mmol/L Potassium 3.7 (3.5-5.1) mmol/L Chloride 106 (98-107) mmol/L Carbon Dioxide 23 (22-30) mmol/L Anion Gap 10 mmol/L BUN 16 (9-20) mg/dL Creatinine 0.99 (0.66-1.25) mg/dL Est GFR (CKD-EPI)AfAm 80 (>60 ml/min/1.73 sqM) Est GFR (CKD-EPI)NonAf 69 (>60 ml/min/1.73 sqM) Glucose 122 H (74-99) mg/dL Plasma Lactic Acid Nii (0.7-2.0) mmol/L Calcium 8.9 (8.4-10.2) mg/dL Magnesium 2.1 (1.6-2.3) mg/dL Total Bilirubin 1.2 (0.2-1.3) mg/dL AST 21 (17-59) U/L ALT 20 L (21-72) U/L Alkaline Phosphatase 95 (38-126) U/L Troponin I (0.000-0.034) ng/mL NT-Pro-B Natriuret Pep 1960 pg/mL Total Protein 6.5 (6.3-8.2) g/dL Albumin 3.8 (3.5-5.0) g/dL Urine Color Urine Appearance (Clear) Urine pH (5.0-8.0) Ur Specific [place] (1.001-1.035) Urine Protein (Negative) Urine Glucose (UA) (Negative) Urine Ketones (Negative) Urine Blood (Negative) Urine Nitrite (Negative) Urine Bilirubin (Negative) Urine Urobilinogen (<2.0) mg/dL Ur Leukocyte Esterase (Negative) 10/03/18 10/03/18 10/03/18 Range/Units 11:45 11:45 12:15 WBC (3.8-10.6) k/uL RBC (4.30-5.90) m/uL Hgb (13.0-17.5) gm/dL Hct (39.0-53.0) % MCV (80.0-100.0) fL MCH (25.0-35.0) pg MCHC (31.0-37.0) g/dL RDW (11.5-15.5) % Plt Count (150-450) k/uL Neutrophils % % Lymphocytes % % Monocytes % % Eosinophils % % Basophils % % Neutrophils # (1.3-7.7) k/uL Lymphocytes # (1.0-4.8) k/uL Monocytes # (0-1.0) k/uL Eosinophils # (0-0.7) k/uL Basophils # (0-0.2) k/uL PT 10.7 (9.0-12.0) sec INR 1.0 (<1.2) APTT 24.7 (22.0-30.0) sec Sodium (137-145) mmol/L Potassium (3.5-5.1) mmol/L Chloride (98-107) mmol/L Carbon Dioxide (22-30) mmol/L Anion Gap mmol/L BUN (9-20) mg/dL Creatinine (0.66-1.25) mg/dL Est GFR (CKD-EPI)AfAm (>60 ml/min/1.73 sqM) Est GFR (CKD-EPI)NonAf (>60 ml/min/1.73 sqM) Glucose (74-99) mg/dL Plasma Lactic Acid Nii 0.8 (0.7-2.0) mmol/L Calcium (8.4-10.2) mg/dL Magnesium (1.6-2.3) mg/dL Total Bilirubin (0.2-1.3) mg/dL AST (17-59) U/L ALT (21-72) U/L Alkaline Phosphatase (38-126) U/L Troponin I 0.019 (0.000-0.034) ng/mL NT-Pro-B Natriuret Pep pg/mL Total Protein (6.3-8.2) g/dL Albumin (3.5-5.0) g/dL Urine Color Urine Appearance (Clear) Urine pH (5.0-8.0) Ur Specific [place] (1.001-1.035) Urine Protein (Negative) Urine Glucose (UA) (Negative) Urine Ketones (Negative) Urine Blood (Negative) Urine Nitrite (Negative) Urine Bilirubin (Negative) Urine Urobilinogen (<2.0) mg/dL Ur Leukocyte Esterase (Negative) 10/03/18 Range/Units 13:35 WBC (3.8-10.6) k/uL RBC (4.30-5.90) m/uL Hgb (13.0-17.5) gm/dL Hct (39.0-53.0) % MCV (80.0-100.0) fL MCH (25.0-35.0) pg MCHC (31.0-37.0) g/dL RDW (11.5-15.5) % Plt Count (150-450) k/uL Neutrophils % % Lymphocytes % % Monocytes % % Eosinophils % % Basophils % % Neutrophils # (1.3-7.7) k/uL Lymphocytes # (1.0-4.8) k/uL Monocytes # (0-1.0) k/uL Eosinophils # (0-0.7) k/uL Basophils # (0-0.2) k/uL PT (9.0-12.0) sec INR (<1.2) APTT (22.0-30.0) sec Sodium (137-145) mmol/L Potassium (3.5-5.1) mmol/L Chloride (98-107) mmol/L Carbon Dioxide (22-30) mmol/L Anion Gap mmol/L BUN (9-20) mg/dL Creatinine (0.66-1.25) mg/dL Est GFR (CKD-EPI)AfAm (>60 ml/min/1.73 sqM) Est GFR (CKD-EPI)NonAf (>60 ml/min/1.73 sqM) Glucose (74-99) mg/dL Plasma Lactic Acid Nii (0.7-2.0) mmol/L Calcium (8.4-10.2) mg/dL Magnesium (1.6-2.3) mg/dL Total Bilirubin (0.2-1.3) mg/dL AST (17-59) U/L ALT (21-72) U/L Alkaline Phosphatase (38-126) U/L Troponin I (0.000-0.034) ng/mL NT-Pro-B Natriuret Pep pg/mL Total Protein (6.3-8.2) g/dL Albumin (3.5-5.0) g/dL Urine Color Light Yellow Urine Appearance Clear (Clear) Urine pH 6.5 (5.0-8.0) Ur Specific [place] 1.011 (1.001-1.035) Urine Protein Negative (Negative) Urine Glucose (UA) Negative (Negative) Urine Ketones Negative (Negative) Urine Blood Negative (Negative) Urine Nitrite Negative (Negative) Urine Bilirubin Negative (Negative) Urine Urobilinogen <2.0 (<2.0) mg/dL Ur Leukocyte Esterase Negative (Negative) Disposition Clinical Impression: Chest pain, Hypertension, essential, Endoleak of aortic graft, Non-insulin dependent type 2 diabetes mellitus Disposition: ADMITTED IP TO THIS [facility] Condition: Stable Referrals: Pattie Torres MD [Primary Care Provider] - 1-2 days
[2018-10-03 19:28] VITALS: BMI 29.9
[2018-10-03] MEDS: LABETALOL 5 MG/ML VIAL MDV IVP PRN (19:59)
[2018-10-03] MEDS: SODIUM CHLORIDE 0.9% 1,000 ML IV SCH (20:33)
[2018-10-03] MEDS: GLIMEPIRIDE 2 MG TAB PO SCH (20:33)
[2018-10-03] MEDS: LOSARTAN 50 MG TAB PO SCH (20:33)
[2018-10-03 21:17] LABS: Glucose,Whole Blood 254 mg/dL (75-99)
[2018-10-03] MEDS: INSULIN ASPART (NovoLOG) 100 UNIT/ML VIAL SQ SCH (21:24)
--- NOTE | 2018-10-04 00:06 | P.GSCN ---
History of Present Illness Consult date: 10/03/18 Reason for Consult: Recent AAA repair, Endoleak History of present illness: 87 year old gentleman with recent AAA repair at [facility] 2 weeks ago presented to the ER from his primary care doctor secondary to chest pain. Patient underwent CT thorax and abdomen which demonstrated an endoleak from recent EVAR. Patient denies any abdominal pain at this time. He states his chest pain has improved. He does describe chronic back pain which has not changed. He states his AAA was over 6 cm when treated and currently on CT it measured 5.3cm. He denies any pain with ambulation, fevers, chills, nausea, vomiting or shortness of breath. Review of Systems All systems: negative (what is mentioned in the PMH or HPI) Past Medical History Past Medical History: Diabetes Mellitus, GERD/Reflux, Hyperlipidemia, Hypertension, Osteoarthritis (OA) Additional Past Medical History / Comment(s): hx polyps,irregular heartrate, hx diverticulitis, kidney stones, enlarged aortic aneurysm History of Any Multi-Drug Resistant Organisms: None Reported Past Surgical History: Appendectomy, Back Surgery, Bowel Resection, Cholecystectomy, Tonsillectomy Additional Past Surgical History / Comment(s): rt cataract, back surgery x 3, mau knee replacement (rt x 2, left x 1) aortic anuerysm repair Past Anesthesia/Blood Transfusion Reactions: Postoperative Nausea & Vomiting (PONV) Additional Past Anesthesia/Blood Transfusion Reaction / Comm: no hx blood transfusion Past Psychological History: No Psychological Hx Reported Smoking Status: Never smoker Past Alcohol Use History: None Reported Past Drug Use History: None Reported - Past Family History Mother Family Medical History: Cancer Medications and Allergies Home Medications Medication Instructions Recorded Confirmed Type Atenolol [Tenormin] 25 mg PO QAM 09/26/15 10/03/18 History Cetirizine HCl [Zyrtec] 10 mg PO DAILY 09/26/15 10/03/18 History Multivitamins, Thera [Multivitamin 1 tab PO DAILY 12/10/16 10/03/18 History (formulary)] Aspirin EC [Ecotrin Low Dose] 81 mg PO DAILY #1 tablet. 09/17/17 10/03/18 Rx Glimepiride [Amaryl] 2 mg PO BID 10/03/18 10/03/18 History Allergies Allergy/AdvReac Type Severity Reaction Status Date / Time Sulfa (Sulfonamide Allergy Severe throat,mouth Verified 10/03/18 15:19 Antibiotics) swelling tomato Allergy Rash/Hives Verified 10/03/18 15:19 Iodinated Contrast- Oral and AdvReac very hot Verified 10/03/18 15:19 IV Dye feeling [Iodinated Contrast Media - IV Dye] Surgical - Exam Vital Signs Temp Pulse Resp BP Pulse Ox 98.7 F 76 18 182/89 96 10/03/18 10:58 10/03/18 10:58 10/03/18 10:58 10/03/18 10:58 10/03/18 10:58 Palpable femoral, dp/pt pulses. No abdominal tenderness, distension. - General well developed, well nourished, no distress - Eyes PERRL, normal ocular movement - ENT normal pinna - Neck no masses - Respiratory normal expansion, normal respiratory effort - Cardiovascular Rhythm: regular - Abdomen Abdomen: soft, non tender - Neurologic normal coordination - Psychiatric oriented to time, oriented to person, oriented to place, speech is normal Results - Labs 10/03/18 11:45 10/03/18 11:45 Abnormal Lab Results - Last 24 Hours (Table) 10/03/18 10/03/18 10/03/18 Range/Units 11:45 11:45 21:15 RBC 3.75 L (4.30-5.90) m/uL Hgb 11.9 L (13.0-17.5) gm/dL Hct 35.7 L (39.0-53.0) % Glucose 122 H (74-99) mg/dL POC Glucose (mg/dL) 254 H (75-99) mg/dL ALT 20 L (21-72) U/L Diabetes panel 10/03/18 Range/Units 11:45 Sodium 139 (137-145) mmol/L Potassium 3.7 (3.5-5.1) mmol/L Chloride 106 (98-107) mmol/L Carbon Dioxide 23 (22-30) mmol/L BUN 16 (9-20) mg/dL Creatinine 0.99 (0.66-1.25) mg/dL Glucose 122 H (74-99) mg/dL Calcium 8.9 (8.4-10.2) mg/dL AST 21 (17-59) U/L ALT 20 L (21-72) U/L Alkaline Phosphatase 95 (38-126) U/L Total Protein 6.5 (6.3-8.2) g/dL Albumin 3.8 (3.5-5.0) g/dL Calcium panel 10/03/18 Range/Units 11:45 Calcium 8.9 (8.4-10.2) mg/dL Albumin 3.8 (3.5-5.0) g/dL Pituitary panel 10/03/18 Range/Units 11:45 Sodium 139 (137-145) mmol/L Potassium 3.7 (3.5-5.1) mmol/L Chloride 106 (98-107) mmol/L Carbon Dioxide 23 (22-30) mmol/L BUN 16 (9-20) mg/dL Creatinine 0.99 (0.66-1.25) mg/dL Glucose 122 H (74-99) mg/dL Calcium 8.9 (8.4-10.2) mg/dL Adrenal panel 10/03/18 Range/Units 11:45 Sodium 139 (137-145) mmol/L Potassium 3.7 (3.5-5.1) mmol/L Chloride 106 (98-107) mmol/L Carbon Dioxide 23 (22-30) mmol/L BUN 16 (9-20) mg/dL Creatinine 0.99 (0.66-1.25) mg/dL Glucose 122 H (74-99) mg/dL Calcium 8.9 (8.4-10.2) mg/dL Total Bilirubin 1.2 (0.2-1.3) mg/dL AST 21 (17-59) U/L ALT 20 L (21-72) U/L Alkaline Phosphatase 95 (38-126) U/L Total Protein 6.5 (6.3-8.2) g/dL Albumin 3.8 (3.5-5.0) g/dL - Imaging CT scan - chest: report reviewed, image reviewed Assessment and Plan Assessment: #1 AAA s/p EVAR #2 Type II endoleak #3 Chest pain #4 DM Plan: No surgical intervention at this time. Endoleak is a type II and patient is not symptomatic from his AAA and therefore close follow up will be required to monitor any expansion of the AAA. We did discuss possibility of needing endovascular intervention for the endoleak from either femoral access or direct aortic access via CT guidance. If AAA enlarges then we will intervene at that time. Continue your current medical management. We will follow with you. Thank you for the consultation and please call if there are any questions.
[2018-10-04] MEDS: SODIUM CHLORIDE 0.9% 1,000 ML IV SCH (05:18)
[2018-10-04 06:48] LABS: Glucose,Whole Blood 198 mg/dL (75-99)
[2018-10-04] MEDS: INSULIN ASPART (NovoLOG) 100 UNIT/ML VIAL SQ SCH ×4 (06:51→20:14)
[2018-10-04] MEDS ORDERED: PANTOPRAZOLE 40 MG/10 ML VIAL IV SCH (09:00)
[2018-10-04] MEDS ORDERED: ATENOLOL 25 MG TAB PO SCH (09:00)
[2018-10-04] MEDS: ASPIRIN 81 MG PO SCH (09:09)
[2018-10-04] MEDS: MULTIVITAMINS, THERA 1 EACH TAB PO SCH (09:10)
[2018-10-04] MEDS: LORATADINE 10 MG TAB PO SCH (09:10)
[2018-10-04] MEDS: GLIMEPIRIDE 2 MG TAB PO SCH ×2 (09:10→19:43)
[2018-10-04] MEDS: LOSARTAN 50 MG TAB PO SCH ×2 (09:10→19:43)
[2018-10-04] MEDS ORDERED: ATENOLOL 25 MG TAB PO STA (10:25)
--- NOTE | 2018-10-04 10:59 | P.PN ---
Subjective Progress Note Date: 10/04/18 Principal diagnosis: AAA, Recent repair with endoleak Patient seen and examined at bedside. No new events overnight. States he does not have any abdominal pain or new back pain. According to the nurse he has been having some hallucinations and will be going for a CT of the brain today. He is also having hypertension which they are currently treating trying to get under control. He denies any pain with ambulation or at rest in his legs. He denies any fevers, chills, chest pain or shortness of breath. Objective - Vital Signs Vital signs: Vital Signs Temp 96.4 F L 10/04/18 08:00 Pulse 74 10/04/18 10:33 Resp 18 10/04/18 08:00 BP 167/77 10/04/18 10:33 Pulse Ox 93 L 10/04/18 08:00 Intake & Output 10/03/18 10/04/18 10/04/18 18:59 06:59 18:59 Intake Total 240 Balance 240 Weight 81.647 kg Intake: Oral 240 Other: Voiding Method Toilet Toilet Urinal Urinal - Exam Palpable femoral, DP and PT pulses bilaterally. No abdominal tenderness or distention. - Constitutional General appearance: Present: average body habitus, cooperative - EENT Eyes: Present: PERRLA - Respiratory Respiratory: bilateral: CTA - Cardiovascular Rhythm: regular - Psychiatric Psychiatric: Present: A&O x's 3, appropriate affect, intact judgment & insight - Labs CBC & Chem 7: 10/03/18 11:45 10/03/18 11:45 Labs: Abnormal Lab Results - Last 24 Hours (Table) 10/03/18 10/03/18 10/03/18 Range/Units 11:45 11:45 21:15 RBC 3.75 L (4.30-5.90) m/uL Hgb 11.9 L (13.0-17.5) gm/dL Hct 35.7 L (39.0-53.0) % Glucose 122 H (74-99) mg/dL POC Glucose (mg/dL) 254 H (75-99) mg/dL ALT 20 L (21-72) U/L 10/04/18 Range/Units 06:41 RBC (4.30-5.90) m/uL Hgb (13.0-17.5) gm/dL Hct (39.0-53.0) % Glucose (74-99) mg/dL POC Glucose (mg/dL) 198 H (75-99) mg/dL ALT (21-72) U/L Assessment and Plan Assessment: #1 AAA s/p EVAR #2 Type II endoleak #3 Chest pain #4 DM #5 hypertension Plan: No surgical intervention at this time. Endoleak is a type II and patient is not symptomatic from his AAA and therefore close follow up will be required to monitor any expansion of the AAA. Agree with antihypertensives to maintain the pressure below 160. Follow-up in the office in 2-4 weeks.
[2018-10-04] MEDS: LABETALOL 5 MG/ML VIAL MDV IVP PRN ×2 (11:20→19:43)
--- NOTE | 2018-10-04 11:24 | CT ---
EXAMINATION TYPE: CT brain wo con DATE OF EXAM: 10/04/2018 COMPARISON: NONE HISTORY: [place], visual hallucinations CT DLP: 1074.4 mGycm Automated exposure control for dose reduction was used. FINDINGS: There are generalized changes of sulcal prominence and ventriculomegaly, compatible with atrophic stan nge. There is physiologic calcification of the basal ganglia. There is diffuse periventricular white matter lucency, compatible with chronic white matter ischemic change. There is no acute focal lesion, mass effect or midline shift identified. I do not see evidence of intracranial blood. Visualized portions of the paranasal sinuses and mastoids are clear. The bony calvarium is intact. IMPRESSION: 1. NO ACUTE INTRACRANIAL ABNORMALITY. 2. DEGENERATIVE CHANGE. 3. PHYSIOLOGIC CALCIFICATION OF THE BASAL GANGLIA.
[2018-10-04 12:16] LABS: Glucose,Whole Blood 109 mg/dL (75-99)
--- NOTE | 2018-10-04 13:12 | P.HPIM ---
History of Present Illness H&P Date: 10/04/18 Chief Complaint: Chest pain This is an 87-year-old male patient of Dr. Torres and Dr. RIGOBERTO Hicks with a past medical history of type 2 diabetes, hypercholesterolemia, GERD, BPH, hypertension, and abdominal aortic aneurysm status post AAA repair at [facility] 2 weeks ago. He presents with complaints of chest pain onset while he was sleeping and was a tightness. He denies any radiation to his neck. He did state he had some severe pain in his shoulder left-sided. He complains of jaw pain when he brings his head forward causes spasms. Patient has history of recent treatment for bronchitis on antibiotics. Initial blood pressure 182/89, pulse ox 96% and heart rate 76. EKG showed no acute findings. He underwent a CT angiogram revealed aortic iliac stent graft placement is noted in interval. Evidence of endoleak. Aneurysm currently measures 5.3 cm. There is evidence of abdominal perfusion to the lower pole of the right kidney as well as lower pole of the left kidney felt to reflect infarct. Descending thoracic aortic aneurysm. Patient was admitted to the cardiac stepdown unit and consult requested with cardiology and vascular surgery. Patient has been seen by Dr. Delvalle and he advises no surgical intervention at this time. 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 If AAA enlarges then we will need to intervene at that time. Initial troponin negative, proBNP 1960. The patient had Lexiscan stress test done in September 2017 which was negative. Ec hocardiogram EF of 55-60% with moderate concentric left hypertrophy, mild aortic regurgitation, mild mitral and tricuspid regurgitation. Patient also had event monitor at that time. While in the emergency center, patient received labetalol 10 mg IV 2 doses for blood pressure control. He also received IV Solu-Medrol for dye ALLERGY and 2 L of IV fluid. Patient's blood pressure remains high at 167/77. Patient has had visual hallucinations, seeing and, dogs in a vet clinic. He gives history that he has had some confusion in the past when he took Vicodin while he was at [facility]. He complains of headache to the back of his head. Patient denies any chest pain at this time. Review of Systems All systems: negative Constitutional: Denies chills, Denies fatigue, Denies fever, Denies poor appetite, Denies weight loss Eyes: denies blurred vision, denies pain Ears, nose, mouth and throat: Denies headache, Denies sore throat Cardiovascular: Reports chest pain, Reports shortness of breath, Denies syncope Respiratory: Denies cough, Denies cough with sputum, Denies excessive sputum, Denies hemoptysis, Denies home oxygen, Denies wheezing Gastrointestinal: Denies abdominal pain, Denies diarrhea, Denies loss of appetite, Denies nausea, Denies vomiting Genitourinary: Denies dysuria, Denies urinary retention Musculoskeletal: Denies frequent falls, Denies gait dysfunction, Denies muscle weakness, Denies myalgias Integumentary: Denies pruritus, Denies rash, Denies wounds Neurological: Denies aphasia, Denies change in mentation, Denies change in speech, Denies numbness, Denies weakness Psychiatric: Reports hallucinations, Denies anxiety, Denies depression Endocrine: Denies fatigue, Denies weight change Past Medical History Past Medical History: Diabetes Mellitus, GERD/Reflux, Hyperlipidemia, Hyperte nsion, Osteoarthritis (OA) Additional Past Medical History / Comment(s): hx polyps,irregular heartrate, hx diverticulitis, kidney stones, enlarged aortic aneurysm History of Any Multi-Drug Resistant Organisms: None Reported Past Surgical History: Appendectomy, Back Surgery, Bowel Resection, Cholecystectomy, Tonsillectomy Additional Past Surgical History / Comment(s): rt cataract, back surgery x 3, mau knee replacement (rt x 2, left x 1) aortic anuerysm repair Past Anesthesia/Blood Transfusion Reactions: Postoperative Nausea & Vomiting (PONV) Additional Past Anesthesia/Blood Transfusion Reaction / Comment(s): no hx blood transfusion Past Psychological History: No Psychological Hx Reported Smoking Status: Never smoker Past Alcohol Use History: None Reported Additional Past Alcohol Use History / Comment(s): Patient is a nonsmoker, no alcohol use. He lives at home with his . Past Drug Use History: None Reported - Past Family History Mother Family Medical History: Cancer Additional Family Medical History / Comment(s): Mother at age 74 from pancreatic cancer with history of colon cancer. Father Additional Family Medical History / Comment(s): Father at age 61 with history of coronary artery disease and diabetes. Brother(s) Additional Family Medical History / Comment(s): Patient is a total of 5 brothers, one from colon cancer with history of coronary artery disease. One at age 39 from a myocardial infarction. One at age 26 from a myoc ardial infarction. One at age 3 from pneumonia. One brother is age 87 with history of [place] and still living. Sister(s) Additional Family Medical History / Comment(s): The patient has 2 sisters one from a brain aneurysm and one at age 75 from myocardial fraction with some type of heart cancer history. Patient has one son that that had a myocardial infarction at age 65 and 1 daughter with multiple medical problems. Medications and Allergies Home Medications Medication Instructions Recorded Confirmed Type Atenolol [Tenormin] 25 mg PO QAM 09/26/15 10/03/18 History Cetirizine HCl [Zyrtec] 10 mg PO DAILY 09/26/15 10/03/18 History Multivitamins, Thera [Multivitamin 1 tab PO DAILY 12/10/16 10/03/18 History (formulary)] Aspirin EC [Ecotrin Low Dose] 81 mg PO DAILY #1 tablet. 09/17/17 10/03/18 Rx Glimepiride [Amaryl] 2 mg PO BID 10/03/18 10/03/18 History Allergies Allergy/AdvReac Type Severity Reaction Status Date / Time Sulfa (Sulfonamide Allergy Severe throat,mouth Verified 10/03/18 15:19 Antibiotics) swelling tomato Allergy Rash/Hives Verified 10/03/18 15:19 Iodinated Contrast- Oral and AdvReac very hot Verified 10/03/18 15:19 IV Dye feeling [Iodinated Contrast Media - IV Dye] Physical Exam Vitals: Vital Signs Temp Pulse Pulse Resp BP BP Pulse Ox 10/04/18 08:00 96.4 F L 71 18 175/81 93 L 10/04/18 03:30 98.1 F 67 15 162/77 94 L 10/03/18 23:10 98.4 F 68 16 144/67 94 L 10/03/18 21:26 163/70 10/03/18 20:47 192/84 10/03/18 19:40 16 10/03/18 19:21 98.2 F 73 16 196/92 94 L 10/03/18 18:45 98.4 F 87 18 185/83 96 10/03/18 16:25 98.9 F 79 16 179/85 97 10/03/18 15:00 66 18 166/75 97 10/03/18 14:29 69 18 169/94 96 10/03/18 14:00 60 18 193/86 97 10/03/18 12:01 60 18 184/86 96 10/03/18 11:45 61 10/03/18 10:58 98.7 F 76 18 182/89 96 Intake and Output 10/03/18 10/04/18 10/04/18 22:59 06:59 14:59 Intake Total 240 Balance 240 Intake: Oral 240 Other: Voiding Method Toilet Toilet Urinal Urinal Gen: This is an 87-year-old male. The patient is resting in bed and appears to be comfortable in no acute distress. HEENT: Head is atraumatic, normocephalic. Pupils equal, round. Sclerae is anicteric. NECK: Supple. No JVD. No lymphadenopathy. No thyromegaly. LUNGS: Clear to auscultation. No wheezes or rhonchi. No intercostal retractions. HEART: Regular rate and rhythm. No murmur. ABDOMEN: Soft. Bowel sounds are present. No masses. No tenderness. EXTREMITIES: No pedal edema. No calf tenderness. NEUROLOGICAL: Patient is awake, alert and oriented x3. Cranial nerves 2 through 12 are grossly intact. The patient is able to answer all questions appropriately but does relate that he is seeing ants on the ceiling. Results CBC & Chem 7: 10/03/18 11:45 10/03/18 11:45 Labs: Abnormal Lab Results - Last 24 Hours (Table) 10/03/18 10/03/18 10/03/18 Range/Units 11:45 11:45 21:15 RBC 3.75 L (4.30-5.90) m/uL Hgb 11.9 L (13.0-17.5) gm/dL Hct 35.7 L (39.0-53.0) % Glucose 122 H (74-99) mg/dL POC Glucose (mg/dL) 254 H (75-99) mg/dL ALT 20 L (21-72) U/L 10/04/18 Range/Units 06:41 RBC (4.30-5.90) m/uL Hgb (13.0-17.5) gm/dL Hct (39.0-53.0) % Glucose (74-99) mg/dL POC Glucose (mg/dL) 198 H (75-99) mg/dL ALT (21-72) U/L Thrombosis Risk Factor Assmnt - DVT/VTE Prophylaxis DVT/VTE Prophylaxis: Mechanical Prophylaxis ordered - Choose All That Apply Any of the Below Risk Factors Present?: Yes Each Factor Represents 1 point: History of prior major surgery (<1month), Obesity (BMI >25) Each Risk Factor Represents 3 Points: Age 75 years or older Thrombosis Risk Factor Assessment Total Risk Factor Score: 5 Thrombosis Risk Factor Assessment Level: High Risk Assessment and Plan Plan: 1. Chest pain, Endoleak from recent endovascular aneurysm repair. Consult with Dr. Delvalle appreciated. Cardiology is on consult. Initial troponin negative, proBNP 1960. Tylenol 3 changed to [place]. Continue aspirin 81 mg daily. 2. Hypertensive emergency, status post IV labetalol 2 doses. Continue atenolol increased to 50 mg daily, losartan 50 mg twice daily. Labetalol IV push as needed. 3. Diabetes mellitus type 2. Continue glimepiride 2 mg twice daily, NovoLog scale before meals and at bedtime 5. Hyperlipidemia. Not currently on medication. 6. Visual hallucinations, possibly related to steroids given in the ER prior to CAT scan due to dye ALLERGY. CAT scan of the brain ordered. 7. GI prophylaxis. Pepcid. 8. Descending thoracic aortic aneurysm aneurysm measuring 4.2 cm, abdominal aortic aneurysm measuring 5.3 cm. 9. DVT prophylaxis. SCDs and JOHNNIE hose. Patient placed as an observation status. Discharge plan: Home on Saturday as long as blood pressure is improved and hallucinations have resolved Impression and plan of care have been directed as dictated by the signing physician. Ghazala Dunham nurse practitioner acting as scribe for signing physician.
[2018-10-04] MEDS: HYDROcodone/APAP 5-325MG 1 EACH TAB PO PRN ×2 (13:51→19:53)
--- NOTE | 2018-10-04 14:11 | P.CRDCN ---
History of Present Illness History of present illness: This is a pleasant 87 year old male past medical history significant for hypertension, dyslipidemia, diabetes mellitus and recent repair of abdominal aortic aneurysm at the [facility] September 15. He presented to the hospital with symptoms of pleuritic chest pain cough. He also has intermittent episodes of right flank pain. He states after surgery he continued emergency department regarding this flank pain and was seen and evaluated and told that there was an issue with the right kidney status post surgery. CT imaging done here reveals evidence of endoleak, aneurysm 5.3 cm and abnormal perfusion to the lower pole of the right kidney as well as the lower pole of the left kidney reflecting possible infarct. He is being followed currently by vascular surgery. He is seen and examined resting comfortably in bed in no acute distress. He denies active symptoms of chest discomfort, dizziness, shortness of breath, palpitations, nausea, vomiting or diaphoresis. Also currently denying flank pain. EKG reveals sinus mechanism with no acute ST or T wave abnormalities noted. Laboratory data reviewed, WBC 5.1, hemoglobin 11.9, platelets 235, sodium 139, potassium 3.7, creatinine 0.99, magnesium 2.1, cardiac enzymes negative 1, proBNP 1960. Most recent echocardiogram obtained in the office September 2017 revealed a systolic function with ejection fraction 55%. Most recent stress test performed in the office September 2017 Lexiscan stress test with an ejection fraction of 60% with no reversible ischemia noted. At the time of my exam: CONSTITUTIONAL: Denies fever. Denies chills. EYES: Denies blurred vision. Denies vision changes. Denies eye pain. EARS, NOSE, MOUTH & THROAT: Denies headache. Denies sore throat. Denies ear pain. CARDIOVASCULAR: Denies chest pain. Denies shortness of breath. Denies orthopnea. Denies PND. Denies palpitations. RESPIRATORY: Denies cough. GASTROINTESTINAL: Denies abdominal pain. Denies diarrhea. Denies constipation. Denies nausea. Denies vomiting. MUSCULOSKELETAL: Denies myalgias. INTEGUMENTARY: Denies pruitis. Denies rash. NEUROLOGIC: Denies numbness. Denies tingling. Denies weakness. PSYCHIATRIC: Denies anxiety. Denies depression. ENDOCRINE: Denies fatigue. Denies weight change. Denies polydipsia. Denies polyurina. GENITOURINARY: Denies burning, hematuria or urgency with micturation. HEMATOLOGIC: Denies history of anemia. Denies bleeding. Blood pressure 162/72 heart rate 79 afebrile maintaining oxygen saturation on room air GENERAL: This is a 87-year-old occasion male in no apparent distress at the time of my examination. HEENT: Head is atraumatic, normocephalic. Pupils are equal, round. Sclerae anicteric. Conjunctivae are clear. Mucous membranes of the mouth are moist. Neck is supple. There is no jugular venous distention. No carotid bruit is heard. LUNGS: Clear to auscultation no wheezes, rales or rhonchi. No chest wall tenderness is noted on palpation or with deep breathing. HEART: Regular rate and rhythm without murmurs, rubs or gallops. S1 and S2 heard. ABDOMEN: Soft, nontender. Bowel sounds are heard. No organomegaly noted. EXTREMITIES: No evidence of peripheral edema and no calf tenderness noted. VASCULAR: Radial and dorsalis pedis pulses palpated, no evidence of clubbing. NEUROLOGIC: Patient is awake, alert and oriented x3. ASSESSMENT Chest pain, atypical for angina. Radiation from the right flank. 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 Intermittent right flank pain Abdominal aortic aneurysm s/p EVAR Abnormal renal perfusion bilaterally Hypertension, uncontrolled Diabetes mellitus PLAN Obtain second troponin and d-dimer. Losartan added and atenolol increased for blood pressure management. We will continue to follow and make recommendations accordingly. Thank you kindly for this consultation. Nurse Practitioner note has been reviewed, I agree with a documented findings and plan of care. Patient was seen and examined. Past Medical History Past Medical History: Diabetes Mellitus, GERD/Reflux, Hyperlipidemia, Hypertension, Osteoarthritis (OA) Additional Past Medical History / Comment(s): hx polyps,irregular heartrate, hx diverticulitis, kidney stones, enlarged aortic aneurysm History of Any Multi-Drug Resistant Organisms: None Reported Past Surgical History: Appendectomy, Back Surgery, Bowel Resection, Cholecystectomy, Tonsillectomy Additional Past Surgical History / Comment(s): rt cataract, back surgery x 3, mau knee replacement (rt x 2, left x 1) aortic anuerysm repair Past Anesthesia/Blood Transfusion Reactions: Postoperative Nausea & Vomiting (PONV) Additional Past Anesthesia/Blood Transfusion Reaction / Comment(s): no hx blood transfusion Past Psychological History: No Psychological Hx Reported Smoking Status: Never smoker Past Alcohol Use History: None Reported Past Drug Use History: None Reported - Past Family History Mother Family Medical History: Cancer Father Additional Family Medical History / Comment(s): Father at age 61 with history of coronary artery disease and diabetes. Brother(s) Additional Family Medical History / Comment(s): Patient is a total of 5 brothers, one from colon cancer with history of coronary artery disease. One at age 39 from a myocardial infarction. One at age 26 from a myocardial infarction. One at age 3 from pneumonia. One brother is age 87 with history of [place] and still living. Sister(s) Additional Family Medical History / Comment(s): The patient has 2 sisters one from a brain aneurysm and one at age 75 from myocardial fraction with some type of heart cancer history. Patient has one son that that had a myocardial infarction at age 65 and 1 daughter with multiple medical problems. Medications and Allergies Home Medications Medication Instructions Recorded Confirmed Type Atenolol [Tenormin] 25 mg PO QAM 09/26/15 10/03/18 History Cetirizine HCl [Zyrtec] 10 mg PO DAILY 09/26/15 10/03/18 History Multivitamins, Thera [Multivitamin 1 tab PO DAILY 12/10/16 10/03/18 History (formulary)] Aspirin EC [Ecotrin Low Dose] 81 mg PO DAILY #1 tablet. 09/17/17 10/03/18 Rx Glimepiride [Amaryl] 2 mg PO BID 10/03/18 10/03/18 History Allergies Allergy/AdvReac Type Severity Reaction Status Date / Time Sulfa (Sulfonamide Allergy Severe throat,mouth Verified 10/03/18 15:19 Antibiotics) swelling tomato Allergy Rash/Hives Verified 10/03/18 15:19 Iodinated Contrast- Oral and AdvReac very hot Verified 10/03/18 15:19 IV Dye feeling [Iodinated Contrast Media - IV Dye] Physical Exam Vitals: Vital Signs Temp Pulse Pulse Resp BP BP Pulse Ox 10/04/18 03:30 98.1 F 67 15 162/77 94 L 10/03/18 23:10 98.4 F 68 16 144/67 94 L 10/03/18 21:26 163/70 10/03/18 20:47 192/84 10/03/18 19:40 16 10/03/18 19:21 98.2 F 73 16 196/92 94 L 10/03/18 18:45 98.4 F 87 18 185/83 96 10/03/18 16:25 98.9 F 79 16 179/85 97 10/03/18 15:00 66 18 166/75 97 10/03/18 14:29 69 18 169/94 96 10/03/18 14:00 60 18 193/86 97 10/03/18 12:01 60 18 184/86 96 10/03/18 11:45 61 10/03/18 10:58 98.7 F 76 18 182/89 96 Intake and Output 10/03/18 10/04/18 10/04/18 22:59 06:59 14:59 Intake Total 240 Balance 240 Intake: Oral 240 Other: Voiding Method Toilet Toilet Urinal Urinal Results 10/03/18 11:45 10/03/18 11:45 Cardiac Enzymes 10/03/18 10/03/18 Range/Units 11:45 11:45 AST 21 (17-59) U/L Troponin I 0.019 (0.000-0.034) ng/mL Coagulation 10/03/18 Range/Units 11:45 PT 10.7 (9.0-12.0) sec APTT 24.7 (22.0-30.0) sec CBC 10/03/18 Range/Units 11:45 WBC 5.1 (3.8-10.6) k/uL RBC 3.75 L (4.30-5.90) m/uL Hgb 11.9 L (13.0-17.5) gm/dL Hct 35.7 L (39.0-53.0) % Plt Count 235 (150-450) k/uL Comprehensive Metabolic Panel 10/03/18 Range/Units 11:45 Sodium 139 (137-145) mmol/L Potassium 3.7 (3.5-5.1) mmol/L Chloride 106 (98-107) mmol/L Carbon Dioxide 23 (22-30) mmol/L BUN 16 (9-20) mg/dL Creatinine 0.99 (0.66-1.25) mg/dL Glucose 122 H (74-99) mg/dL Calcium 8.9 (8.4-10.2) mg/dL AST 21 (17-59) U/L ALT 20 L (21-72) U/L Alkaline Phosphatase 95 (38-126) U/L Total Protein 6.5 (6.3-8.2) g/dL Albumin 3.8 (3.5-5.0) g/dL Current Medications Generic Name Dose Route Start Last Admin Trade Name Freq PRN Reason Stop Dose Admin Acetaminophen 650 mg 10/03/18 14:56 Tylenol Tab PO Q6HR PRN Mild Pain or Fever > 100.5 Acetaminophen/Codeine Phosphate 1 each 10/03/18 14:56 Tylenol #3 PO Q4HR PRN Moderate Pain Aspirin 81 mg 10/04/18 09:00 Aspirin PO DAILY [facility] Atenolol 25 mg 10/04/18 09:00 Tenormin PO QAM ENZO Glimepiride 2 mg 10/03/18 21:00 10/03/18 20:33 Amaryl PO 2 mg BID ENZO Administration Sodium Chloride 1,000 mls @ 100 mls/hr 10/03/18 15:00 10/04/18 05:18 Saline 0.9% IV Not Given .Q10H [facility] Insulin Aspart 0 unit 10/03/18 21:00 10/04/18 06:51 Novolog SQ 2 unit ACHS ENZO Administration Protocol Labetalol HCl 20 mg 10/03/18 18:46 10/03/18 19:59 Trandate IVP 20 mg Q4H PRN Administration Hypertension Loratadine 10 mg 10/04/18 09:00 Claritin PO DAILY [facility] Losartan Potassium 50 mg 10/03/18 21:00 10/03/18 20:33 Cozaar PO 50 mg BID ENZO Administration Morphine Sulfate 4 mg 10/03/18 14:56 Morphine Sulfate (Inj) IV Q4HR PRN Severe Pain Multivitamins 1 each 10/04/18 09:00 Theragran PO DAILY [facility] Naloxone HCl 0.2 mg 10/03/18 14:56 Narcan IV Q2M PRN Opioid Reversal Pantoprazole Sodium 40 mg 10/04/18 09:00 Protonix IV DAILY [facility] Intake and Output 10/03/18 10/04/18 10/04/18 22:59 06:59 14:59 Intake Total 240 Balance 240 Intake: Oral 240 Other: Voiding Method Toilet Toilet Urinal Urinal 10/03/18 11:45 10/03/18 11:45
[2018-10-04] MEDS ORDERED: SENNOSIDES 8.6 MG TAB PO PRN (15:35)
[2018-10-04 17:12] LABS: Glucose,Whole Blood 110 mg/dL (75-99)
[2018-10-04 20:07] LABS: Glucose,Whole Blood 169 mg/dL (75-99)
[2018-10-04] MEDS ORDERED: cloNIDine HCL 0.1 MG TAB PO STA (21:32)
[2018-10-05] MEDS: LABETALOL 5 MG/ML VIAL MDV IVP PRN ×2 (01:57→06:08)
[2018-10-05] MEDS: INSULIN ASPART (NovoLOG) 100 UNIT/ML VIAL SQ SCH ×4 (06:13→21:05)
[2018-10-05 06:14] LABS: Glucose,Whole Blood 89 mg/dL (75-99)
[2018-10-05] MEDS: LOSARTAN 50 MG TAB PO SCH ×2 (08:41→21:05)
[2018-10-05] MEDS: LORATADINE 10 MG TAB PO SCH (08:41)
[2018-10-05] MEDS: FAMOTIDINE 20 MG TAB PO SCH (08:41)
[2018-10-05] MEDS: MULTIVITAMINS, THERA 1 EACH TAB PO SCH (08:41)
[2018-10-05] MEDS: ATENOLOL 50 MG TAB PO SCH (08:41)
[2018-10-05] MEDS: ASPIRIN 81 MG PO SCH (08:41)
[2018-10-05] MEDS: GLIMEPIRIDE 2 MG TAB PO SCH ×2 (08:42→21:05)
[2018-10-05] MEDS: SENNOSIDES 8.6 MG TAB PO SCH ×2 (10:02→21:05)
[2018-10-05] MEDS: amLODIPine 5 MG TAB PO STA ×2 (10:02→12:24)
[2018-10-05] MEDS ORDERED: HYDROCHLOROTHIAZIDE 25 MG TAB PO SCH (11:15)
[2018-10-05 11:53] LABS: Glucose,Whole Blood 77 mg/dL (75-99)
[2018-10-05] MEDS ORDERED: amLODIPine 5 MG TAB PO STA (11:57)
--- NOTE | 2018-10-05 12:21 | P.PN ---
Subjective Progress Note Date: 10/05/18 This is an 87-year-old male patient of Dr. Torres and Dr. RIGOBERTO Hicks with a past medical history of type 2 diabetes, hypercholesterolemia, GERD, BPH, hypertension, and abdominal aortic aneurysm status post AAA repair at [facility] 2 weeks ago. He presents with complaints of chest pain onset while he was sleeping and was a tightness. He denies any radiation to his neck. He did state he had some severe pain in his shoulder left-sided. He complains of jaw pain when he brings his head forward causes spasms. Patient has history of recent treatment for bronchitis on antibiotics. Initial blood pressure 182/89, pulse ox 96% and heart rate 76. EKG showed no acute findings. He underwent a CT angiogram revealed aortic iliac stent graft placement is noted in interval. Evidence of endoleak. Aneurysm currently measures 5.3 cm. There is evidence of abdominal perfusion to the lower pole of the right kidney as well as lower pole of the left kidney felt to reflect infarct. Descending thoracic aortic aneurysm. Patient was admitted to the cardiac stepdown unit and consult requested with cardiology and vascular surgery. Patient has been seen by Dr. Delvalle and he advises no surgical intervention at this time. 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 If AAA enlarges then we will need to intervene at that time. Initial troponin negative, proBNP 1960. The patient had Lexiscan stress test done in September 2017 which was negative. Echocardiogram EF of 55-60% with moderate concentric left hypertrophy, mild aortic regurgitation, mild mitral and tricuspid regurgitation. Patient also had event monitor at that time. While in the emergency center, patient received labetalol 10 mg IV 2 doses for blood pressure control. He also received IV Solu-Medrol for dye ALLERGY and 2 L of IV fluid. Patient's blood pressure remains high at 167/77. Patient has had visual hallucinations, seeing and, dogs in a vet clinic. He gives history that he has had some confusion in the past when he took Vicodin while he was at [facility]. He complains of headache to the back of his head. Patient denies any chest pain at this time. 10/05: Patient's blood pressure remains elevated and cardiology was contacted last evening patient received clonidine 0.1 mg. This morning he is status post labetalol and repeat blood pressure is 183/86. We have added in amlodipine 5 mg and repeat blood pressure after that was 172/112. Cardiology had advised hydrochlorothiazide which family refused as he did not want the patient up urinating frequently. We will increase amlodipine to 10 mg daily patient will receive an additional 5 mg now. Regarding hallucinations, patient apparently had a rough night according to his daughter Yina. He is still having brief episodes but for the most part much improved from yesterday. Patient has had a bowel movement but is stating that he needs a stool softener. Senokot changed to scheduled. Patient denies any chest pain. He is complaining of headache in the posterior/occipital region. Objective - Vital Signs Vital signs: Vital Signs Temp 97.5 F L 10/05/18 08:00 Pulse 65 10/05/18 08:00 Resp 16 10/05/18 08:00 BP 183/86 10/05/18 08:00 Pulse Ox 95 10/05/18 08:00 Intake & Output 10/04/18 10/05/18 10/05/18 18:59 06:59 18:59 Intake Total 1440 240 Balance 1440 240 Weight 76.7 kg Intake: Oral 1440 240 Other: Voiding Method Toilet Toilet Urinal Urinal # Voids 4 - Exam Review of Systems All systems: negative Constitutional: Denies chills, Denies fatigue, Denies fever, Denies poor appetite, Denies weight loss Eyes: denies blurred vision, denies pain Ears, nose, mouth and throat: Denies headache, Denies sore throat Cardiovascular: Reports chest pain, Reports shortness of breath, Denies syncope Respiratory: Denies cough, Denies cough with sputum, Denies excessive sputum, Denies hemoptysis, Denies home oxygen, Denies wheezing Gastrointestinal: Denies abdominal pain, Denies diarrhea, Denies loss of appetite, Denies nausea, Denies vomiting Genitourinary: Denies dysuria, Denies urinary retention Musculoskeletal: Denies frequent falls, Denies gait dysfunction, Denies muscle weakness, Denies myalgias Integumentary: Denies pruritus, Denies rash, Denies wounds Neurological: Denies aphasia, Denies change in mentation, Denies change in speech, Denies numbness, Denies weakness Psychiatric: Reports hallucinations, Denies anxiety, Denies depression Endocrine: Denies fatigue, Denies weight change Gen: This is an 87-year-old male. The patient is ambulating in the hallway with wheeled walker and appears to be in no acute distress. HEENT: Head is atraumatic, normocephalic. Pupils equal, round. Sclerae is anicteric. NECK: Supple. No JVD. No lymphadenopathy. No thyromegaly. LUNGS: Clear to auscultation. No wheezes or rhonchi. No intercostal retractions. HEART: Regular rate and rhythm. No murmur. ABDOMEN: Soft. Bowel sounds are present. No masses. No tenderness. EXTREMITIES: No pedal edema. No calf tenderness. NEUROLOGICAL: Patient is awake, alert and oriented x3. Cranial nerves 2 through 12 are grossly intact. - Labs CBC & Chem 7: 10/03/18 11:45 10/03/18 11:45 Labs: Abnormal Lab Results - Last 24 Hours (Table) 10/04/18 10/04/18 10/04/18 Range/Units 11:43 14:12 17:02 D-Dimer 8.14 H (<0.60) mg/L FEU POC Glucose (mg/dL) 109 H 110 H (75-99) mg/dL 10/04/18 Range/Units 20:06 D-Dimer (<0.60) mg/L FEU POC Glucose (mg/dL) 169 H (75-99) mg/dL Microbiology - Last 24 Hours (Table) 10/03/18 12:15 Blood Culture - Preliminary Blood No Growth after 24 hours Assessment and Plan Plan: 1. Chest pain, Endoleak from recent endovascular aneurysm repair. Consult with Dr. Delvalle appreciated. Cardiology is on consult. Initial troponin negative, proBNP 1960. Tylenol 3 changed to [place]. Continue aspirin 81 mg daily. 2. Hypertensive emergency, status post IV labetalol 2 doses. Continue atenolol increased to 50 mg daily, losartan 50 mg twice daily. Labetalol IV push as needed. 3. Diabetes mellitus type 2. Continue glimepiride 2 mg twice daily, NovoLog scale before meals and at bedtime 5. Hyperlipidemia. Not currently on medication. 6. Visual hallucinations, possibly related to steroids given in the ER prior to CAT scan due to dye ALLERGY. CAT scan of the brain negative. Hallucinations are improving. 7. GI prophylaxis. Pepcid. 8. Descending thoracic aortic aneurysm aneurysm measuring 4.2 cm, abdominal a ortic aneurysm measuring 5.3 cm. 9. DVT prophylaxis. SCDs and JOHNNIE mcclure. Patient placed as an observation status. Discharge plan: Home on Saturday once blood pressure is controlled and hallucinations have resolved Impression and plan of care have been directed as dictated by the signing physician. Ghazala Dunham nurse practitioner acting as scribe for signing physician.
--- NOTE | 2018-10-05 12:47 | P.PN ---
Subjective This is a pleasant 87 year old male past medical history significant for hypertension, dyslipidemia, diabetes mellitus and recent repair of abdominal aortic aneurysm at the [facility] September 15. He presented to the hospital with symptoms of pleuritic chest pain cough. He also has intermittent episodes of right flank pain. He states after surgery he continued emergency department regarding this flank pain and was seen and evaluated and told that there was an issue with the right kidney status post surgery. CT imaging done here reveals evidence of endoleak, aneurysm 5.3 cm and abnormal perfusion to the lower pole of the right kidney as well as the lower pole of the left kidney reflecting possible infarct. He is being followed currently by vascular surgery. He is seen and examined resting comfortably in bed in no acute distress. He denies active symptoms of chest discomfort, dizziness, shortness of breath, palpitations, nausea, vomiting or diaphoresis. Also currently denying flank pain. EKG reveals sinus mechanism with no acute ST or T wave abnormalities noted. Laboratory data reviewed, WBC 5.1, hemoglobin 11.9, platelets 235, sodium 139, potassium 3.7, creatinine 0.99, magnesium 2.1, cardiac enzymes negative 1, p roBNP 1960. Most recent echocardiogram obtained in the office September 2017 revealed a systolic function with ejection fraction 55%. Most recent stress test performed in the office September 2017 Lexiscan stress test with an ejection fraction of 60% with no reversible ischemia noted. 10/05/2018 Patient seen and examined sitting up in the chair with his daughter at the bedside. He denies any symptoms of chest discomfort, shortness of breath, dizziness or palpitations. He currently feels headache at the base of his neck. Blood pressure has been quite uncontrolled. Last evening was 208/106 Catapres 0.1 mg by mouth was given with no real effect. This morning blood pressure was 196/77 a dose of IV labetalol was given blood pressure currently 172/112. Troponin negative x2, d-dimer 8.14. GENERAL: This is a 87-year-old occasion male in no apparent distress at the time of my examination. HEENT: Head is atraumatic, normocephalic. Pupils are equal, round. Sclerae anicteric. Conjunctivae are clear. Mucous membranes of the mouth are moist. Neck is supple. There is no jugular venous distention. No carotid bruit is heard. LUNGS: Clear to auscultation no wheezes, rales or rhonchi. No chest wall tende rness is noted on palpation or with deep breathing. HEART: Regular rate and rhythm without murmurs, rubs or gallops. S1 and S2 heard. EXTREMITIES: No evidence of peripheral edema and no calf tenderness noted. ASSESSMENT Chest pain, atypical for angina. Radiation from the right flank. Type II Endol eak from recent endovascular aneurysm repair. Intermittent right flank pain Abdominal aortic aneurysm s/p EVAR Abnormal renal perfusion bilaterally Hypertension, uncontrolled Diabetes mellitus Elevated d-dimer, likely reactive from recent surgery PLAN Check renal artery duplex. Initiate on hydrochlorothiazide 25 mg daily along with amlodipine, atenolol and losartan that has been adjusted per primary care team. Repeat BMP in the morning. We will continue to follow and make recommendations accordingly. Nurse Practitioner note has been reviewed, I agree with a documented findings and plan of care. Patient was seen and examined. Objective - Vital Signs Vital signs: Vital Signs Temp 97.5 F L 10/05/18 08:00 Pulse 68 10/05/18 11:41 Resp 16 10/05/18 11:41 BP 172/112 10/05/18 11:41 Pulse Ox 97 10/05/18 11:41 Intake & Output 10/04/18 10/05/18 10/05/18 18:59 06:59 18:59 Intake Total 1440 720 Balance 1440 720 Weight 76.7 kg Intake: Oral 1440 720 Other: Voiding Method Toilet Toilet Urinal Urinal # Voids 4 1 - Labs CBC & Chem 7: 10/03/18 11:45 10/03/18 11:45 Labs: Abnormal Lab Results - Last 24 Hours (Table) 10/04/18 10/04/18 10/04/18 Range/Units 14:12 17:02 20:06 D-Dimer 8.14 H (<0.60) mg/L FEU POC Glucose (mg/dL) 110 H 169 H (75-99) mg/dL Microbiology - Last 24 Hours (Table) 10/03/18 12:15 Blood Culture - Preliminary Blood No Growth after 24 hours
[2018-10-05 16:50] LABS: Glucose,Whole Blood 91 mg/dL (75-99)
[2018-10-05 21:05] LABS: Glucose,Whole Blood 124 mg/dL (75-99)
[2018-10-06] MEDS: LABETALOL 5 MG/ML VIAL MDV IVP PRN (01:30)
[2018-10-06 06:18] LABS: Glucose,Whole Blood 84 mg/dL (75-99)
[2018-10-06] MEDS: INSULIN ASPART (NovoLOG) 100 UNIT/ML VIAL SQ SCH ×2 (07:07→12:46)
[2018-10-06 07:30] LABS: Calcium 9.2 mg/dL (8.4-10.2); Potassium 3.8 mmol/L (3.5-5.1)
[2018-10-06 07:36] VITALS: RESP 16; TEMP 97.9
[2018-10-06] MEDS ORDERED: amLODIPine 10 MG TAB PO SCH (09:00)
[2018-10-06] MEDS ORDERED: amLODIPine 5 MG TAB PO SCH (09:00)
[2018-10-06] MEDS: GLIMEPIRIDE 2 MG TAB PO SCH (09:50)
[2018-10-06] MEDS: ASPIRIN 81 MG PO SCH (09:51)
[2018-10-06] MEDS: FAMOTIDINE 20 MG TAB PO SCH (09:51)
[2018-10-06] MEDS: MULTIVITAMINS, THERA 1 EACH TAB PO SCH (09:51)
[2018-10-06] MEDS: LORATADINE 10 MG TAB PO SCH (09:51)
[2018-10-06] MEDS: ATENOLOL 50 MG TAB PO SCH (09:51)
[2018-10-06] MEDS: LOSARTAN 50 MG TAB PO SCH (09:51)
[2018-10-06] MEDS ORDERED: LABETALOL 200 MG TAB PO SCH (10:30)
--- NOTE | 2018-10-06 10:47 | P.PN ---
Subjective Progress Note Date: 10/06/18 Pt s/e. No complaints. Having difficulty with bp control per nsg. Pt feeling fine Objective - Vital Signs Vital signs: Vital Signs Temp 97.9 F 10/06/18 07:32 Pulse 69 10/06/18 07:32 Resp 16 10/06/18 07:32 BP 177/87 10/06/18 07:32 Pulse Ox 95 10/06/18 07:32 Intake & Output 10/05/18 10/06/18 10/06/18 18:59 06:59 18:59 Intake Total 960 Balance 960 Weight 74.5 kg Intake: Oral 960 Other: # Voids 1 1 1 - Exam NAD In chair comfortably at bedside. No resp distress Abd soft, NT/ND BLE warm and dry - Labs CBC & Chem 7: 10/03/18 11:45 10/06/18 06:24 Labs: Abnormal Lab Results - Last 24 Hours (Table) 10/05/18 10/06/18 Range/Units 21:04 06:24 Chloride 109 H (98-107) mmol/L POC Glucose (mg/dL) 124 H (75-99) mg/dL Microbiology - Last 24 Hours (Table) 10/03/18 12:15 Blood Culture - Preliminary Blood No Growth after 48 hours Assessment and Plan Assessment: #1 AAA s/p EVAR #2 Type II endoleak #3 Chest pain #4 DM #5 uncontrolled hypertension Plan: No further vascular intervention at this time. Renal US ordered for HTN. BUN/Cr stable without significant elevation. Continue attempts BP control. F.U in office in 4-6 weeks if not planning on returning to [facility] for follow up. Discussed ability for us to continue ongoing care of this AAA if desired. Will sign off, Please call with questions or concerns. Thank you.
[2018-10-06 10:59] VITALS: BP 151/83; PULSE 74
[2018-10-06 11:45] LABS: Glucose,Whole Blood 160 mg/dL (75-99)
--- NOTE | 2018-10-06 12:19 | P.PN ---
Subjective Progress Note Date: 10/06/18 This is a pleasant 87 year old male past medical history significant for hypertension, dyslipidemia, diabetes mellitus and recent repair of abdominal aortic aneurysm at the [facility] September 15. He presented to the hospital with symptoms of pleuritic chest pain cough. He also has intermittent episodes of right flank pain. He states after surgery he continued emergency department regarding this flank pain and was seen and evaluated and told that there was an issue with the right kidney status post surgery. CT imaging done here reveals evidence of endoleak, aneurysm 5.3 cm and abnormal perfusion to the lower pole of the right kidney as well as the lower pole of the left kidney reflecting possible infarct. He is being followed currently by vascular surgery. He is seen and examined resting comfortably in bed in no acute distress. He denies active symptoms of chest discomfort, dizziness, shortness of breath, palpitations, nausea, vomiting or diaphoresis. Also currently denying flank pain. Ultrasound of the kidneys is being performed this morning. Most recent echo performed in the office revealed an ejection fraction of 55%. Blood pressure this morning 140/70 with a heart rate in the 70s, 98% on room air. Sodium 143, potassium 3.8, BUN 18 and creatinine 1.1. Objective - Vital Signs Vital signs: Vital Signs Temp 97.9 F 10/06/18 07:32 Pulse 74 10/06/18 10:58 Resp 16 10/06/18 10:58 BP 151/83 10/06/18 10:58 Pulse Ox 98 10/06/18 10:58 Intake & Output 10/05/18 10/06/18 10/06/18 18:59 06:59 18:59 Intake Total 960 Balance 960 Weight 74.5 kg Intake: Oral 960 Other: # Voids 1 1 1 - Exam GENERAL: This is a 87-year-old occasion male in no apparent distress at the time of my examination. HEENT: Head is atraumatic, normocephalic. Pupils are equal, round. Sclerae anicteric. Conjunctivae are clear. Mucous membranes of the mouth are moist. Neck is supple. There is no jugular venous distention. No carotid bruit is heard. LUNGS: Clear to auscultation no wheezes, rales or rhonchi. No chest wall tenderness is noted on palpation or with deep breathing. HEART: Regular rate and rhythm without murmurs, rubs or gallops. S1 and S2 heard. EXTREMITIES: No evidence of peripheral edema and no calf tenderness noted. - Labs CBC & Chem 7: 10/03/18 11:45 10/06/18 06:24 Labs: Abnormal Lab Results - Last 24 Hours (Table) 10/05/18 10/06/18 10/06/18 Range/Units 21:04 06:24 11:42 Chloride 109 H (98-107) mmol/L POC Glucose (mg/dL) 124 H 160 H (75-99) mg/dL Microbiology - Last 24 Hours (Table) 10/03/18 12:15 Blood Culture - Preliminary Blood No Growth after 48 hours Assessment and Plan Plan: ASSESSMENT and plan #1 Chest pain, atypical for angina. Radiation from the right flank. 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 #2 Intermittent right flank pain #3 Abdominal aortic aneurysm s/p EVAR #4 Abnormal renal perfusion bilaterally #5 Hypertension, uncontrolled #6 Diabetes mellitus #7 Elevated d-dimer, likely reactive from recent surgery #8 hyperlipidemia Plan From cardiology's perspective, we'll recommend at this time to continue the patient on his current medications, continue to monitor blood pressure. DNP note has been reviewed, I agree with a documented findings and plan of care. Patient was seen and examined.
--- NOTE | 2018-10-06 12:54 | P.DS ---
Providers Date of admission: 10/03/18 15:57 Expected date of discharge: 10/06/18 Attending physician: Axel Roper MD Consults: 10/03/18 14:56 Consult Physician Stat Consulting Provider: Nga Hicks Consult Reason/Comments: chest pain, aortic aneurysm Do you want consulting provider notified?: Yes 10/03/18 15:22 Consult Physician Stat Consulting Provider: Cat Joseph Consult Reason/Comments: Aortic aneurysm repair, endo leak Do you want consulting provider notified?: Yes Primary care physician: Pattie Torres [facility] Course: This is an 87-year-old male patient of Dr. Torres and Dr. RIGOBERTO Hicks with a past medical history of type 2 diabetes, hypercholesterolemia, GERD, BPH, hypertension, and abdominal aortic aneurysm status post AAA repair at [facility] 2 weeks ago. He presents with complaints of chest pain onset while he was sleeping and was a tightness. He denies any radiation to his neck. He did state he had some severe pain in his shoulder left-sided. He complains of jaw pain when he brings his head forward causes spasms. Patient has history of recent treatment for bronchitis on antibiotics. Initial blood pressure 182/89, pulse ox 96% and heart rate 76. EKG showed no acute findings. He underwent a CT angiogram revealed aortic iliac stent graft placement is noted in interval. Evidence of endoleak. Aneurysm currently measures 5.3 cm. There is evidence of abdominal perfusion to the lower pole of the right kidney as well as lower pole of the left kidney felt to reflect infarct. Descending thoracic aortic aneurysm. Patient was admitted to the cardiac stepdown unit and consult requested with cardiology and vascular surgery. Patient has been seen by Dr. Delvalle and he advises no surgical intervention at this time. 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 If AAA enlarges then we will need to intervene at that time. Initial troponin negative, proBNP 1960. The patient had Lexiscan stress test done in September 2017 which was negative. Echocardiogram EF of 55-60% with moderate concentric left hypertrophy, mild aortic regurgitation, mild mitral and tricuspid regurgitation. Patient also had event monitor at that time. While in the emergency center, patient received labetalol 10 mg IV 2 doses for blood pressure control. He also received IV Solu-Medrol for dye ALLERGY and 2 L of IV fluid. Patient's blood pressure remains high at 167/77. Patient has had visual hallucinations, seeing and, dogs in a vet clinic. He gives history that he has had some confusion in the past when he took Vicodin while he was at [facility]. He complains of headache to the back of his head. Patient denies any chest pain at this time. 10/05: Patient's blood pressure remains elevated and cardiology was contacted last evening patient received clonidine 0.1 mg. This morning he is status post labetalol and repeat blood pressure is 183/86. We have added in amlodipine 5 mg and repeat blood pressure after that was 172/112. Cardiology had advised hydrochlorothiazide which family refused as he did not want the patient up urinating frequently. We will increase amlodipine to 10 mg daily patient will receive an additional 5 mg now. Regarding hallucinations, patient apparently had a rough night according to his daughter Yina. He is still having brief episodes but for the most part much improved from yesterday. Patient has had a bowel movement but is stating that he needs a stool softener. Senokot changed to scheduled. Patient denies any chest pain. He is complaining of headache in the posterior/occipital region. 10/06: Blood pressures this morning running 177/87. We will discontinue atenolol and an labetalol 200 mg twice daily. By afternoon, blood pressure running systolic 136. Patient will be discharged home today in stable condition. Case management has arranged home care. Visual hallucinations have resolved. Discharge diagnoses: 1. Chest pain, acute coronary syndrome ruled out. 2. Endoleak from recent endovascular aneurysm repair. 2. Hypertensive emergency, status post IV labetalol 2 doses. 3. Diabetes mellitus type 2. 5. Hyperlipidemia. 6. Visual hallucinations most likely secondary to steroids, resolved. 7. Descending thoracic aortic aneurysm aneurysm measuring 4.2 cm, abdominal aortic aneurysm measuring 5.3 cm. Discharge plan: Home with home care Impression and plan of care have been directed as dictated by the signing physician. Ghazala Dunham nurse practitioner acting as scribe for signing physician. Patient Condition at Discharge: Good Plan - Discharge Summary Discharge Rx Participant: Yes New Discharge Prescriptions: New Losartan [Cozaar] 50 mg PO BID #60 tab amLODIPine [Norvasc] 10 mg PO DAILY #30 tab Labetalol [Trandate] 200 mg PO BID #60 tab Continue Cetirizine HCl [Zyrtec] 10 mg PO DAILY Multivitamins, Thera [Multivitamin (formulary)] 1 tab PO DAILY Aspirin EC [Ecotrin Low Dose] 81 mg PO DAILY #1 tablet. Glimepiride [Amaryl] 2 mg PO BID Discontinued Atenolol [Tenormin] 25 mg PO QAM Discharge Medication List Cetirizine HCl [Zyrtec] 10 mg PO DAILY 09/26/15 [History] Multivitamins, Thera [Multivitamin (formulary)] 1 tab PO DAILY 12/10/16 [History] Aspirin EC [Ecotrin Low Dose] 81 mg PO DAILY #1 tablet. 09/17/17 [Rx] Glimepiride [Amaryl] 2 mg PO BID 10/03/18 [History] Labetalol [Trandate] 200 mg PO BID #60 tab 10/06/18 [Rx] Losartan [Cozaar] 50 mg PO BID #60 tab 10/06/18 [Rx] amLODIPine [Norvasc] 10 mg PO DAILY #30 tab 10/06/18 [Rx] Follow up Appointment(s)/Referral(s): Pattie Torres MD [Primary Care Provider] - 1 Week Guille Delvalle DO [STAFF PHYSICIAN] - 4 Weeks [facility], [NON-STAFF] - Darryn Peacock DO [STAFF PHYSICIAN] - 2 Weeks Discharge Disposition: HOME SELF-CARE
--- NOTE | 2018-10-06 17:22 | US ---
EXAMINATION TYPE: US renal artery duplex complet DATE OF EXAM: 10/05/2018 COMPARISON: CT dated 10/03/2018, 12/24/2017 CLINICAL HISTORY: uncontrolled bp, not responding to therapy. Patient has endoleak seen by CT MEASUREMENTS: RENAL SIZE: Rt Kidney: 8.8 x 3.6 x 3.6cm Lt Kidney: 9.3 x 4.1 x 3.9cm RESISTANCE INDEX Right: 0.68 Left: 0.77 RA/AO RATIO (< 3.5 ) Right: 1.2 Left: 1.9 RA VELOCITY ( < 180 cm/s) Right: 58 cm/s Left: 90 cm/s Hypoechoic area seen with vascularity seen anterior to aortic stent. Probable area of endoleak. Aorti c stent seen distally and at bifurcation. Not seen proximally. Right kidney shows atrophy. Segmental arteries show sharp upstroke. Due to overlying bowel gas right renal artery not visualized proximally, no obvious renal artery stenosis. Left kidney simple cyst measuring 3.4 x 3.4 x 2.6cm, probable stone measuring 0.4 x 0.3 x 0.3cm. Segm ental arteries show sharp upstroke, no evidence of renal artery stenosis. Grayscale, color Doppler, spectral Doppler imaging performed. There is an abdominal aortic aneurysm w ith aortic stent graft extending into the iliac regions. Findings show color flow outside the lumen o f the graft within the aneurysm compatible with endoleak. Kidneys show normal cortical medullary differentiation, there is cortical thinning. Waveform analysis shows diastolic flow, brisk upstroke within the renal arteries and arcuate arteries. Parapelvic cyst s noted within the left kidney. IMPRESSION: Aortic stent graft in place with endoleak, recommend vascular surgery consult. Left nephrolithiasis. Renal artery stenosis is not evident.
== END 2018-10-06 13:58 | disposition home or self-care (01) ==
LOC: EC 10:48 → 3SCARD 15:57
PROVIDERS: ADMIT Internal Medicine; ATTEND Internal Medicine
DX: R07.89 Other chest pain (principal); T82.330A Leakage of aortic (bifurcation) graft (replacement), initial encounter; N28.9 Disorder of kidney and ureter, unspecified; I71.4 Abdominal aortic aneurysm, without rupture; I16.1 Hypertensive emergency; I71.2 Thoracic aortic aneurysm, without rupture; I10 Essential (primary) hypertension; E11.9 Type 2 diabetes mellitus without complications; I08.3 Combined rheumatic disorders of mitral, aortic and tricuspid valves; K21.9 Gastro-esophageal reflux disease without esophagitis; E78.5 Hyperlipidemia, unspecified; E78.00 Pure hypercholesterolemia, unspecified; M19.90 Unspecified osteoarthritis, unspecified site; G89.29 Other chronic pain; M54.9 Dorsalgia, unspecified; R44.1 Visual hallucinations; T38.0X5A Adverse effect of glucocorticoids and synthetic analogues, initial encounter; N40.0 Benign prostatic hyperplasia without lower urinary tract symptoms; N20.0 Calculus of kidney; M25.512 Pain in left shoulder; R68.84 Jaw pain; R51 Headache; I49.9 Cardiac arrhythmia, unspecified; R10.9 Unspecified abdominal pain; R79.89 Other specified abnormal findings of blood chemistry; Z79.82 Long term (current) use of aspirin; Z79.84 Long term (current) use of oral hypoglycemic drugs; Z79.899 Other long term (current) drug therapy; Z91.041 Radiographic dye allergy status; Z88.2 Allergy status to sulfonamides; Z91.018 Allergy to other foods; Z95.828 Presence of other vascular implants and grafts; Z87.19 Personal history of other diseases of the digestive system; Z87.442 Personal history of urinary calculi; Z90.49 Acquired absence of other specified parts of digestive tract; Z96.653 Presence of artificial knee joint, bilateral; Z98.41 Cataract extraction status, right eye; Z86.79 Personal history of other diseases of the circulatory system; Z87.09 Personal history of other diseases of the respiratory system; Y83.2 Surgical operation with anastomosis, bypass or graft as the cause of abnormal reaction of the patient, or of later complication, without mention of misadventure at the time of the procedure; Z80.9 Family history of malignant neoplasm, unspecified; Z83.3 Family history of diabetes mellitus; Z82.49 Family history of ischemic heart disease and other diseases of the circulatory system; Z80.0 Family history of malignant neoplasm of digestive organs; Z82.5 Family history of asthma and other chronic lower respiratory diseases; Z80.8 Family history of malignant neoplasm of other organs or systems
CPT/HCPCS: 96376 ×5; 96361 ×3; 96375 ×2; 96374; 99285; 36415; 93005; 85379; 83880; 80053; 80048; 83605; 83735; 84484 ×2; 85025; 85610; 85730; 81003; 87040; 93975; 70450; 71275; 74174; G0378 ×4; J1200; J2930; C9113; Q9967

== ENCOUNTER 2018-10-07 13:04 | Emergency (ER) | payer MEDICARE, BC ==
[2018-10-07 13:13] VITALS: RESP 18; TEMP 98
[2018-10-07 13:39] LABS: Glucose,Whole Blood 106 mg/dL (75-99)
[2018-10-07] MEDS ORDERED: SODIUM CHLORIDE 0.9% 1,000 ML IV STA (13:41)
[2018-10-07] MEDS ORDERED: methylPREDNISolone SOD SUCCI 125 MG/2 ML VIAL IV STA (13:44)
[2018-10-07] MEDS ORDERED: diphenhydrAMINE 50 MG/ML 1 ML VIAL IVP STA (13:44)
[2018-10-07] MEDS ORDERED: FAMOTIDINE 20 MG/2 ML VIAL IV STA (13:44)
[2018-10-07 14:16] LABS: Albumin 4.2 g/dL (3.5-5.0); Calcium 9.8 mg/dL (8.4-10.2); Potassium 3.7 mmol/L (3.5-5.1); Total Bilirubin 0.9 mg/dL (0.2-1.3)
[2018-10-07 14:23] LABS: Basophils % (A) 1 %; Eosinophils # (A) 0.1 k/uL (0-0.7); Eosinophils % (A) 3 %; HCT 39.7 % (39.0-53.0); HGB 12.6 gm/dL (13.0-17.5); Lymphocytes # (A) 1.2 k/uL (1.0-4.8); Lymphocytes % (A) 24 %; MCH 30.9 pg (25.0-35.0); MCHC 31.7 g/dL (31.0-37.0); MCV 97.6 fL (80.0-100.0); Mean Platelet Volume 6.6; Monocytes # (A) 0.3 k/uL (0-1.0); Monocytes % (A) 6 %; Neutrophils % (A) 62 %; Platelet Count 255 k/uL (150-450); RBC 4.06 m/uL (4.30-5.90); RDW 13.6 % (11.5-15.5); WBC 4.8 k/uL (3.8-10.6)
[2018-10-07 14:25] LABS: Partial Thromboplastin Time 23.6 sec (22.0-30.0); Prothrombin Time 10.8 sec (9.0-12.0)
--- NOTE | 2018-10-07 14:34 | CT ---
EXAMINATION TYPE: CT brain wo con for TPA DATE OF EXAM: 10/07/2018 COMPARISON: 10/04/2018 HISTORY: 87-year-old male with weakness, Neuro deficits. TECHNIQUE: Examination was done in axial plane without intravenous contrast. Coronal and sagittal r econstructions performed. CT DLP: 1096 mGycm Automated exposure control for dose reduction was used. FINDINGS: There is no evidence of acute intracranial hemorrhage, acute ischemic changes, mass, mass-effect, or extra-axial fluid collection. There is no effacement of cerebral sulci or basal subarachnoid cister ns. There is no hydrocephalus. There is no midline shift. Yen-white matter distinction is preserv ed. Moderate generalized supratentorial volume loss with confluent white matter hypodensities in both cer ebral hemispheres. Benign basal calcifications redemonstrated. Old lacunar infarct versus prominent p erivascular space right basal ganglia. Paranasal sinuses and mastoid air cells well pneumatized. Orbits and globes are intact. IMPRESSION: Similar moderate generalized atrophy and confluent changes of chronic small vessel ischemic disease. No acute intracranial abnormality seen.
--- NOTE | 2018-10-07 14:36 | XR ---
EXAMINATION TYPE: XR chest 2V DATE OF EXAM: 10/07/2018 COMPARISON: 09/16/2017 HISTORY: 87-year-old male altered mental status, confusion TECHNIQUE: AP and lateral views FINDINGS: Heart upper limits of normal in size. Stable mild dilatation/ectasia of the thoracic aorta. Mild patc hy posterior basilar opacity on the left. No effusion. IMPRESSION: Some patchy posterior basilar opacity on the left could represent atelectasis or an early infiltrate. Clinically correlate.
--- NOTE | 2018-10-07 15:14 | CT ---
EXAMINATION TYPE: CT angio head neck DATE OF EXAM: 10/07/2018 HISTORY: Neuro deficits. COMPARISON: None CT DLP: 367.2 mGycm. Automated Exposure Control for Dose Reduction was Utilized. TECHNIQUE: CTA scan of the neck is performed with IV Contrast, patient injected with 50ml mL of Isov ue 370, axial images are obtained, coronal and sagittal reformatted images are reviewed. Three-D jenni nstructed images are created on an independent workstation and reviewed. FINDINGS: Carotid/Vascular Structures: Thoracic aorta is patent, proximal descending aorta is 3.5 cm. The innom inate artery, left and right common carotid arteries, left and right subclavian arteries are patent. Atheromatous changes are present. Mild atheromatous changes are present at the carotid bifurcations w ithout significant stenosis. Internal and external carotid arteries are patent. Vertebral arteries ar e codominant and patent. [place] shows no aneurysm. Atheromatous changes are present. There is no embolus or dissecti on. Anterior and posterior circulation are intact. Other: Extensive facet arthropathy noted within the cervical spine, degenerative disc changes are pre sent. Suspect segmentation anomalies at C3-4 and C6-7-T1. Anterolisthesis present grade 1 at the uppe r thoracic spine. Air within the internal jugular vein likely introduced during intravenous access. IMPRESSION: Atheromatous changes are present. No evident embolus or dissection. Thoracic aortic aneur ysm.
[2018-10-07] MEDS ORDERED: HYDROmorphone 0.5 MG/0.5 ML SYRINGE IVP STA (15:19)
--- NOTE | 2018-10-07 15:19 | CT ---
EXAMINATION TYPE: CT angio thor/abd pel aorta DATE OF EXAM: 10/07/2018 COMPARISON: 10/03/2018 HISTORY: Abdominal pain and right hip pain. History of AAA. CT DLP: 1325.6 mGycm. Automated Exposure Control for Dose Reduction was Utilized. CONTRAST: CT scan of the thorax, abdomen and pelvis is performed with IV Contrast, patient injected with 50ml m L of Isovue 370. FINDINGS: VASCULATURE: Although no precontrast images were obtained there are curvilinear densities in the adrien ve aortic lumen on image 109 of series 401. Endovascular stent graft begins at the level of the left renal artery and extends into the common iliac arteries. Infrarenal aortic lumen measures approximate ly 5.9 x 5.1 cm in anterior posterior by transverse dimension with a fusiform [place] aortic aneurysm measuring approximately 8.5 cm in craniocaudal dimension extending to the aortoiliac bifurcation. Thi s previously measured approximately 5.3 x 4.9 cm on the recent exam of 10/03/2018. The left common iliac artery is dilated measuring 2.1 cm and the right is also dilated measuring 2.2 cm. There is opacification of the visualized portions of the femoral arteries. No contrast extravasa tion is seen. LUNGS: Calcified benign granulomas are seen within both lungs. Diaphragmatic hernia is small on the r ight containing mesenteric fat. Bibasilar airspace disease is dependent and favored to represent atel ectasis given its reticular and linear in morphology. No suspicious mass is seen. The tracheobronchia l tree is patent. MEDIASTINUM: There are no greater than 1 cm hilar or mediastinal lymph nodes. No pericardial effusi on is seen. There appears to be a left anterior descending coronary artery stent. [place] coronary ar alexa atherosclerosis is also seen. Small hiatal hernia is present. The ascending thoracic aorta is up per limits of normal size measuring approximately 3.9 cm. The main pulmonary artery is mildly enlarge d measuring 3.2 cm, suggesting pulmonary arterial hypertension. LIVER/GB: No significant abnormality is appreciated. Gallbladder is either surgically absent or extre aleida diminutive and there is extrahepatic biliary ductal dilatation, likely from cholecystectomy. PANCREAS: No significant abnormality is seen. SPLEEN: Multiple benign calcified splenic granulomas are present. There is a splenic artery pseudoane urysm is calcified fissuring 1.8 cm. ADRENALS: No significant abnormality is seen. KIDNEYS: Again there is note of prior renal infarcts of the lower poles. This was discussed on the pr ior exam. Probable right upper pole renal cyst is subcentimeter and left renal cyst is approximately 3.4 cm. Left renal sinus cysts are again seen. BOWEL: Numerous sigmoid diverticula are present without pericolonic fat stranding. No dilated large o r small bowel is seen LYMPH NODES: No greater than 1cm abdominal or pelvic lymph nodes are appreciated. OSSEOUS STRUCTURES: Nonspecific sclerotic foci of the left pubic bone and iliac bones. Arthropathy of the femoral acetabular joint and sacroiliac joints are noted. Prior probable harvest site for lumbar spine surgery from the right iliac bone. Surgical and advanced degenerative changes of the spine are seen. Bridging anterior osteophytes suggest diffuse idiopathic skeletal hyperostosis. Again there is scoliotic curvature of the thoracolumbar spine IMPRESSION: 1. Redemonstration of a type II endoleak as discussed on the prior recent CT of 10/03/2018. There is i nterval enlargement of the [place] aneurysmal aortic lumen in comparison to that recent exam currently measuring up to 5.9 x 5.1 cm and previously measuring up to 5.3 x 4.9 cm. 2. 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
--- NOTE | 2018-10-07 16:27 | ED ---
General Adult HPI - General Chief complaint: Neuro Symptoms/Deficit Stated complaint: trouble speaking Time Seen by Provider: 10/07/18 13:05 Source: patient, RN notes reviewed Mode of arrival: wheelchair Limitations: no limitations - History of Present Illness Initial comments: This is an 87-year-old male who presents emergency Department with a recent past medical history significant for an aortic graft on September 15 that was done at [facility] [place]. Patient also is here 4 days ago for abdominal pain and had a aortic angiogram which showed endovascular leak. Patient was eventually discharged home. Patient returns today because he had some expressive aphasia that lasted about a half an hour and started hour prior to arrival. Patient sta shannan symptoms have completely resolved. Patient also complains of some left lower abdominal pain. Patient denies any numbness or weakness. Patient denies any speech problems currently. Patient denies any visual problems. Family states patient seems to be back at his baseline at this time. Patient currently has no other complaints other than a little left lower abdominal pain. - Related Data Home Medications Medication Instructions Recorded Confirmed Cetirizine HCl [Zyrtec] 10 mg PO DAILY 09/26/15 10/07/18 Multivitamins, Thera [Multivitamin 1 tab PO DAILY 12/10/16 10/07/18 (formulary)] Glimepiride [Amaryl] 2 mg PO BID 10/03/18 10/07/18 Previous Rx's Medication Instructions Recorded Aspirin EC [Ecotrin Low Dose] 81 mg PO DAILY #1 tablet. 09/17/17 Labetalol [Trandate] 200 mg PO BID #60 tab 10/06/18 Losartan [Cozaar] 50 mg PO BID #60 tab 10/06/18 amLODIPine [Norvasc] 10 mg PO DAILY #30 tab 10/06/18 Allergies Allergy/AdvReac Type Severity Reaction Status Date / Time Sulfa (Sulfonamide Allergy Severe throat,mouth Verified 10/07/18 13:46 Antibiotics) swelling Iodinated Contrast- Oral and AdvReac very hot Verified 10/07/18 13:46 IV Dye feeling [Iodinated Contrast Media - IV Dye] Review of Systems ROS Statement: Those systems with pertinent positive or pertinent negative responses have been documented in the HPI. ROS Other: All systems not noted in ROS Statement are negative. Past Medical History Past Medical History: Diabetes Mellitus, GERD/Reflux, Hyperlipidemia, Hypertension, Osteoarthritis (OA) Additional Past Medical History / Comment(s): hx polyps,irregular heartrate, hx diverticulitis, kidney stones, enlarged aortic aneurysm History of Any Multi-Drug Resistant Organisms: None Reported Past Surgical History: Appendectomy, Back Surgery, Bowel Resection, Cholecystectomy, Tonsillectomy Additional Past Surgical History / Comment(s): rt cataract, back surgery x 3, mau knee replacement (rt x 2, left x 1) aortic anuerysm repair Past Anesthesia/Blood Transfusion Reactions: Postoperative Nausea & Vomiting (PONV) Additional Past Anesthesia/Blood Transfusion Reaction / Comment(s): no hx blood transfusion Past Psychological History: No Psychological Hx Reported Smoking Status: Never smoker Past Alcohol Use History: None Reported Past Drug Use History: None Reported - Past Family History Mother Family Medical History: Cancer Father Additional Family Medical History / Comment(s): Father at age 61 with history of coronary artery disease and diabetes. Brother(s) Additional Family Medical History / Comment(s): Patient is a total of 5 broth ers, one from colon cancer with history of coronary artery disease. One at age 39 from a myocardial infarction. One at age 26 from a myocardial infarction. One at age 3 from pneumonia. One brother is age 87 with history of MT and still living. Sister(s) Additional Family Medical History / Comment(s): The patient has 2 sisters one from a brain aneurysm and one at age 75 from myocardial fraction with some type of heart cancer history. Patient has one son that that had a myocardial infarction at age 65 and 1 daughter with multiple medical problems. General Exam - General Exam Comments Initial Comments: GENERAL: Patient is well-developed and well-nourished. Patient is nontoxic and well- hydrated and is in mild distress. ENT: Neck is soft and supple. No significant lymphadenopathy is noted. Oropharynx is clear. Moist mucous membranes. Neck has full range of motion without eliciting any pain. EYES: The sclera were anicteric and conjunctiva were pink and moist. Extraocular movements were intact and pupils were equal round and reactive to light. Eye lids were unremarkable. PULMONARY: Unlabored respirations. Good breath sounds bilaterally. No audible rales rhonchi or wheezing was noted. CARDIOVASCULAR: There is a regular rate and rhythm without any murmurs gallops or rubs. ABDOMEN: Soft and nontender with normal bowel sounds. SKIN: Skin is clear with no lesions or rashes and otherwise unremarkable. NEUROLOGIC: Patient is alert and oriented x3. Cranial nerves II through XII are grossly intact. Motor and sensory are also intact. Normal speech, volume and content. Symmetrical smile. MUSCULOSKELETAL: Normal extremities with adequate strength and full range of motion. LYMPHATICS: No significant lymphadenopathy is noted PSYCHIATRIC: Normal psychiatric evaluation. Limitations: no limitations Course Vital Signs 10/07/18 10/07/18 13:08 15:38 Temperature 98.0 F Pulse Rate 68 62 Respiratory 18 18 Rate Blood Pressure 161/76 144/65 O2 Sat by Pulse 93 L 96 Oximetry Medical Decision Making - Medical Decision Making CT of the head shows no acute abnormalities. CT of the head and neck show no acute abnormality. CT of the aorta shows a type II endoleak. I spoke with Dr. Guerra about this patient and he thought it was something that he could fix and wanted the patient transferred to [facility] I spoke with Dr. Horn at [facility] he accepted the transfer of this patient. Patient remained asymptomatic relative to his stroke symptoms throughout his stay in the ER. Patient's EKG did show sinus bradycardia 57 bpm HI interval is 164 QRS is 102 QT interval 490 QTC is 476 per patient's EKG shows no ST segment elevation or depression or T wave abnormalities are noted. - Lab Data Result diagrams: 10/07/18 13:43 10/07/18 13:43 Lab Results 10/07/18 10/07/18 10/07/18 Range/Units 13:36 13:43 13:43 WBC 4.8 (3.8-10.6) k/uL RBC 4.06 L (4.30-5.90) m/uL Hgb 12.6 L (13.0-17.5) gm/dL Hct 39.7 (39.0-53.0) % MCV 97.6 (80.0-100.0) fL MCH 30.9 (25.0-35.0) pg MCHC 31.7 (31.0-37.0) g/dL RDW 13.6 (11.5-15.5) % Plt Count 255 (150-450) k/uL Neutrophils % 62 % Lymphocytes % 24 % Monocytes % 6 % Eosinophils % 3 % Basophils % 1 % Neutrophils # 3.0 (1.3-7.7) k/uL Lymphocytes # 1.2 (1.0-4.8) k/uL Monocytes # 0.3 (0-1.0) k/uL Eosinophils # 0.1 (0-0.7) k/uL Basophils # 0.0 (0-0.2) k/uL PT (9.0-12.0) sec INR (<1.2) APTT (22.0-30.0) sec Sodium 142 (137-145) mmol/L Potassium 3.7 (3.5-5.1) mmol/L Chloride 105 (98-107) mmol/L Carbon Dioxide 26 (22-30) mmol/L Anion Gap 11 mmol/L BUN 19 (9-20) mg/dL Creatinine 1.23 (0.66-1.25) mg/dL Est GFR (CKD-EPI)AfAm 62 (>60 ml/min/1.73 sqM) Est GFR (CKD-EPI)NonAf 54 (>60 ml/min/1.73 sqM) Glucose 102 H (74-99) mg/dL POC Glucose (mg/dL) 106 H (75-99) mg/dL POC Glu [employer] Clerk ID DiazitNayana carrizales Calcium 9.8 (8.4-10.2) mg/dL Total Bilirubin 0.9 (0.2-1.3) mg/dL AST 28 (17-59) U/L ALT 26 (21-72) U/L Alkaline Phosphatase 91 (38-126) U/L Troponin I (0.000-0.034) ng/mL Total Protein 7.0 (6.3-8.2) g/dL Albumin 4.2 (3.5-5.0) g/dL 10/07/18 10/07/18 Range/Units 13:43 13:43 WBC (3.8-10.6) k/uL RBC (4.30-5.90) m/uL Hgb (13.0-17.5) gm/dL Hct (39.0-53.0) % MCV (80.0-100.0) fL MCH (25.0-35.0) pg MCHC (31.0-37.0) g/dL RDW (11.5-15.5) % Plt Count (150-450) k/uL Neutrophils % % Lymphocytes % % Monocytes % % Eosinophils % % Basophils % % Neutrophils # (1.3-7.7) k/uL Lymphocytes # (1.0-4.8) k/uL Monocytes # (0-1.0) k/uL Eosinophils # (0-0.7) k/uL Basophils # (0-0.2) k/uL PT 10.8 (9.0-12.0) sec INR 1.0 (<1.2) APTT 23.6 (22.0-30.0) sec Sodium (137-145) mmol/L Potassium (3.5-5.1) mmol/L Chloride (98-107) mmol/L Carbon Dioxide (22-30) mmol/L Anion Gap mmol/L BUN (9-20) mg/dL Creatinine (0.66-1.25) mg/dL Est GFR (CKD-EPI)AfAm (>60 ml/min/1.73 sqM) Est GFR (CKD-EPI)NonAf (>60 ml/min/1.73 sqM) Glucose (74-99) mg/dL POC Glucose (mg/dL) (75-99) mg/dL POC Glu [employer] Clerk ID Calcium (8.4-10.2) mg/dL Total Bilirubin (0.2-1.3) mg/dL AST (17-59) U/L ALT (21-72) U/L Alkaline Phosphatase (38-126) U/L Troponin I <0.012 (0.000-0.034) ng/mL Total Protein (6.3-8.2) g/dL Albumin (3.5-5.0) g/dL Critical Care Time Critical Care Time: Yes Total Critical Care Time: 35 Disposition Clinical Impression: Transient cerebral ischemia, Endoleak of aortic graft Disposition: OTHER INSTITUTION NOT DEFINED Referrals: Pattie Torres MD [Primary Care Provider] - 1-2 days Time of Disposition: 16:27 - Out of Hospital Transfer - Req. Specs Out of Hospital Transfer - Requested Specifics: Other Emergency Center ([facility])
[2018-10-07 17:45] VITALS: BP 147/67; PULSE 75
== END 2018-10-07 17:40 | disposition other institution (70) ==
LOC: EC 13:04
DX: T82.330A Leakage of aortic (bifurcation) graft (replacement), initial encounter (principal); G45.9 Transient cerebral ischemic attack, unspecified; R00.1 Bradycardia, unspecified; R10.32 Left lower quadrant pain; E11.9 Type 2 diabetes mellitus without complications; M19.90 Unspecified osteoarthritis, unspecified site; Z86.010 Personal history of colon polyps; Z87.19 Personal history of other diseases of the digestive system; Z87.442 Personal history of urinary calculi; Z90.49 Acquired absence of other specified parts of digestive tract; Z96.653 Presence of artificial knee joint, bilateral; Z98.890 Other specified postprocedural states; Z79.84 Long term (current) use of oral hypoglycemic drugs; Z79.899 Other long term (current) drug therapy; Z88.2 Allergy status to sulfonamides; Z91.041 Radiographic dye allergy status
CPT/HCPCS: 36415; 93005; 80053; 84484; 85025; 85610; 85730; 71046; 70496; 70450; 70498; 71275; 74174; 99291; 96374; 96375 ×3; 96361; J1200; J2930; J1170; Q9967

== ENCOUNTER → 2018-10-22 | Outpatient (CLI) | payer MEDICARE, BC ==
--- NOTE | 2018-10-22 15:51 | XR ---
Cervical spine HISTORY: Neck pain 5 views of the cervical spine Comparison CT neck 10/07/2018 There is multilevel severe facet arthropathy change. Segmentation anomalies present at C3-4, C6-7-T1. There is hypertrophic change present at C4-5, C5-6 with associated loss of disc height, spondylosis. Minimal retrolisthesis grade 1 C4-5, C5-6. Bone mineralization is reduced. Foraminal encroachment is present at C5-6, C6-7 on the right. Oblique images are suboptimal for evaluation of the left foramin a. IMPRESSION: Degenerative disc disease, facet arthropathy. Multilevel foraminal encroachment.
== END | disposition home or self-care (01) ==
LOC: RADXRMAIN 14:53
PROVIDERS: ATTEND Internal Medicine
DX: M50.321 Other cervical disc degeneration at C4-C5 level (principal); M46.92 Unspecified inflammatory spondylopathy, cervical region
CPT/HCPCS: 72050

== ENCOUNTER → 2019-01-09 | Outpatient (CLI) | payer MEDICARE, BC ==
--- NOTE | 2019-01-09 10:02 | CT ---
EXAMINATION TYPE: CT angio abdomen pelvis DATE OF EXAM: 01/09/2019 COMPARISON: 10/07/2018 HISTORY: AAA, follow up post stent CT DLP: 1432.1 mGycm CONTRAST: CTA thoracic and abdominal aorta with 3-D reconstruction is performed without Oral Contrast and witho ut and with IV Contrast, patient injected with 80 mL of Isovue 370. Contrast CTA of the abdominal aorta was performed from the lung base through the pelvis. 3-D reconstruction imaging obtained at a separate workstation. CONTRAST CT ABDOMEN AND PELVIS ABDOMINAL AORTA: Noted are curvilinear densities within the [place] aortic lumen. Endovascular stent g raft is noted which begins at the level of the left renal artery and extends into the common iliac ar teries. Infrarenal aortic lumen measures approximately 5.5 x 4.7 cm versus 5.9 x 5.1 cm previously. F usiform component measures approximately 8 cm in length. There is extension to the aortic bifurcation . Following contrast administration there is evidence of endoleak at the mid component of the aortic aneurysm compatible with endoleak. The iliac components are patent. LIVER/GB-cholecystectomy clips noted. PANCREAS- No significant abnormality is seen. 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 ADRENALS- No significant abnormality is seen. KIDNEYS/BLADDER-there is interval development of perfusion abnormality involving the posterior right cortex compatible with infarct as well as the inferior pole of the left kidney also compatible with i nfarct. Parapelvic renal cysts and renal cortical cyst left kidney. BOWEL- No Significant abnormality GENITAL ORGANS: No gross abnormality seen. LYMPH NODES- No greater than 1cm abdominal or pelvic lymph nodes are appreciated. OSSEOUS STRUCTURES-severe degenerative change and scoliosis lumbar spine. Diffuse radiographic skelet al hyperostosis noted. OTHER- No significant abnormality is seen. IMPRESSION- 1. Essentially stable aortoiliac stent graft with type II endoleak. 2. Interval development of renal infarcts bilaterally. 3. Bilateral parapelvic renal cysts left greater than right and renal cortical cyst on the left.
--- NOTE | 2019-01-09 11:51 | XR ---
Left ankle HISTORY: Trauma one month prior and pain 3 views of the left ankle There is soft tissue swelling. Bone mineralization is mildly reduced the lucency is present at the la teral aspect of the medial malleolus distally on frontal and oblique images. Joint space and alignmen t are maintained. There is a plantar calcaneal spur. Vascular calcifications are present in the soft tissues. IMPRESSION: Possible nondisplaced fracture along the medial malleolus. No dislocation. Soft tissue sw elling. A Yellow level critical message alert has been initiated for Pattie Torres MD via the [facility] Critical Results System on 01/09/2019 11:01 AM. This message alert has been sent to Pattie Torres MD v ia the preferences provided by the clinician for the receipt of Radiology Critical Findings. Message ID [id number].
== END | disposition home or self-care (01) ==
LOC: RADCTMAIN 08:04
PROVIDERS: ATTEND Internal Medicine
DX: N28.0 Ischemia and infarction of kidney (principal); N28.1 Cyst of kidney, acquired; I71.4 Abdominal aortic aneurysm, without rupture; Z95.828 Presence of other vascular implants and grafts
CPT/HCPCS: 82565; 84520; 73610; 36415; 74174; Q9967

== ENCOUNTER → 2019-01-16 | Outpatient (CLI) | payer MEDICARE, BC ==
--- NOTE | 2019-01-16 14:22 | US ---
EXAMINATION TYPE: US venous doppler duplex LE LT DATE OF EXAM: 01/16/2019 1:46 PM COMPARISON: NONE CLINICAL HISTORY: I80.9 Phlebitis and thrombophlebitis. Pain SIDE PERFORMED: Left TECHNIQUE: The lower extremity deep venous system is examined utilizing real time linear array sonog elana with graded compression, doppler sonography and color-flow sonography. VESSELS IMAGED: External Iliac Vein (EIV) Common Femoral Vein Deep Femoral Vein Greater Saphenous Vein * Femoral Vein Popliteal Vein Small Saphenous Vein * Proximal Calf Veins (* superficial vessels) Grayscale, color doppler, spectral doppler imaging performed of the deep veins of the left lower extr emity. There is normal flow, compressibility, vascular waveforms. Left Leg: Negative for DVT IMPRESSION: No sonographic evidence of deep venous thrombosis within the left lower extremity.
== END | disposition home or self-care (01) ==
LOC: RADUSWWP 13:26
PROVIDERS: ATTEND Orthopaedic Surgery
DX: I80.3 Phlebitis and thrombophlebitis of lower extremities, unspecified (principal)

== ENCOUNTER 2019-07-25 14:15 | Emergency (ER) | payer MEDICARE, BC ==
[2019-07-25] MEDS ORDERED: SODIUM CHLORIDE 0.9% 500 ML 500 ML IV STA (14:21)
--- NOTE | 2019-07-25 14:25 | ED ---
General Adult HPI - General Stated complaint: poss stroke Time Seen by Provider: 07/25/19 14:15 Source: EMS, RN notes reviewed, old records reviewed - History of Present Illness Initial comments: This is an 88-year-old male who presents emergency Department with initial complaint of slurred speech facial droop and left-sided numbness and leg weakness. By the time EMS arrived at the scene the patient was completely back to his baseline alert and oriented 3 and had an NIH of 0. EMS stated in route he all of a sudden became confused unable to speak in only follow the most basic commands. Patient also appeared to have some right-sided facial droop. Patient himself cannot give any history at this time. 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 Patient is moaning a little bit and hyperventilating mildly - Related Data Home Medications Medication Instructions Recorded Confirmed Cetirizine HCl [Zyrtec] 10 mg PO DAILY 09/26/15 07/25/19 Glimepiride [Amaryl] 2 mg PO BID 10/03/18 07/25/19 Acetaminophen Tab [Tylenol] 650 mg PO Q6H PRN 07/25/19 07/25/19 Atenolol [Tenormin] 25 mg PO DAILY 07/25/19 07/25/19 Atorvastatin [Lipitor] 40 mg PO HS 07/25/19 07/25/19 Clopidogrel [Plavix] 75 mg PO DAILY 07/25/19 07/25/19 Donepezil HCl [Aricept] 5 mg PO HS 07/25/19 07/25/19 Ezetimibe [Zetia] 10 mg PO DAILY 07/25/19 07/25/19 Famotidine [Pepcid] 20 mg PO BID 07/25/19 07/25/19 HYDROcodone/APAP 5-325MG [[place] 1 tab PO Q12H PRN 07/25/19 07/25/19 5-325] amLODIPine [Norvasc] 5 mg PO DIRECTED 07/25/19 hydrALAZINE HCL [Apresoline] 50 mg PO AC-BID 07/25/19 07/25/19 Previous Rx's Medication Instructions Recorded Aspirin EC [Ecotrin Low Dose] 81 mg PO DAILY #1 tablet. 09/17/17 Losartan [Cozaar] 50 mg PO BID #60 tab 10/06/18 Allergies Allergy/AdvReac Type Severity Reaction Status Date / Time Sulfa (Sulfonamide Allergy Severe throat,mouth Verified 07/25/19 15:04 Antibiotics) swelling Iodinated Contrast Media AdvReac very hot Verified 07/25/19 15:04 [Iodinated Contrast Media - feeling IV Dye] Review of Systems ROS Statement: Those systems with pertinent positive or pertinent negative responses have been documented in the HPI. ROS Other: All systems not noted in ROS Statement are negative. Past Medical History Past Medical History: Diabetes Mellitus, GERD/Reflux, Hyperlipidemia, Hypert ension, Osteoarthritis (OA) Additional Past Medical History / Comment(s): hx polyps,irregular heartrate, hx diverticulitis, kidney stones, enlarged aortic aneurysm History of Any Multi-Drug Resistant Organisms: None Reported Past Surgical History: Appendectomy, Back Surgery, Bowel Resection, Cholecystectomy, Tonsillectomy Additional Past Surgical History / Comment(s): rt cataract, back surgery x 3, mau knee replacement (rt x 2, left x 1) aortic anuerysm repair Past Anesthesia/Blood Transfusion Reactions: Postoperative Nausea & Vomiting (PONV) Additional Past Anesthesia/Blood Transfusion Reaction / Comment(s): no hx blood transfusion Past Psychological History: No Psychological Hx Reported Smoking Status: Never smoker Past Alcohol Use History: None Reported Past Drug Use History: None Reported - Past Family History Mother Family Medical History: Cancer Father Additional Family Medical History / Comment(s): Father at age 61 with history of coronary artery disease and diabetes. Brother(s) Additional Family Medical History / Comment(s): Patient is a total of 5 brothers, one from colon cancer with history of coronary artery disease. One at age 39 from a myocardial infarction. One at age 26 from a myocardial infarction. One at age 3 from pneumonia. One brother is age 87 with history of OK and still living. Sister(s) Additional Family Medical History / Comment(s): The patient has 2 sisters one from a brain aneurysm and one at age 75 from myocardial fraction with some type of heart cancer history. Patient has one son that that had a myocardial infarction at age 65 and 1 daughter with multiple medical problems. General Exam - General Exam Comments Initial Comments: GENERAL: Patient is well-developed and well-nourished. Patient is nontoxic and well- hydrated and is in mild distress. Patient is moaning the whole time he is evaluated in the emergency department ENT: Neck is soft and supple. No significant lymphadenopathy is noted. Oropharynx is clear. Moist mucous membranes. Neck has full range of motion without eliciting any pain. EYES: The sclera were anicteric and conjunctiva were pink and moist. Extraocular movements were intact and pupils were equal round and reactive to light. Eyelids were unremarkable. PULMONARY: Unlabored respirations. Good breath sounds bilaterally. No audible rales rhonchi or wheezing was noted. CARDIOVASCULAR: There is a regular rate and rhythm without any murmurs gallops or rubs. ABDOMEN: Soft and nontender with normal bowel sounds. SKIN: Skin is clear with no lesions or rashes and otherwise unremarkable. NEUROLOGIC: Patient is alert and oriented 1 difficult to assess all cranial nerves since he has not following commands. 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 No calf tenderness. LYMPHATICS: No significant lymphadenopathy is noted PSYCHIATRIC: Unable to assess at this time Course Vital Signs 07/25/19 07/25/19 07/25/19 14:15 14:40 14:55 Temperature 97 F L 97 F L 97 F L Pulse Rate 50 L 85 85 Respiratory 22 18 18 Rate Blood Pressure 177/102 120/94 161/80 O2 Sat by Pulse 98 98 98 Oximetry Medical Decision Making - Medical Decision Making EKG shows a sinus rhythm at a rate of 79 bpm QRS is 102 QT interval is 482 QTC is 452. Patient also has multiple PVCs. CT of the brain shows no acute normalities. I spoke with Dr. murillo because it was a code stroke and he wanted TPA given after he spoke with the patient. He got consent from the . Dr. Murillo also read the CT angiogram neck and wanted the patient to get the TPA and then be transferred to [facility]. Patient's NIH at this time is 2. - Lab Data Result diagrams: 07/25/19 14:25 07/25/19 14:25 Lab Results 07/25/19 07/25/19 07/25/19 Range/Units 14:17 14:25 14:25 WBC 6.2 (3.8-10.6) k/uL RBC 3.77 L (4.30-5.90) m/uL Hgb 12.0 L (13.0-17.5) gm/dL Hct 35.7 L (39.0-53.0) % MCV 94.8 (80.0-100.0) fL MCH 31.9 (25.0-35.0) pg MCHC 33.7 (31.0-37.0) g/dL RDW 14.2 (11.5-15.5) % Plt Count 177 (150-450) k/uL PT (9.0-12.0) sec INR (<1.2) APTT (22.0-30.0) sec Sodium 141 (137-145) mmol/L Potassium 3.3 L (3.5-5.1) mmol/L Chloride 110 H (98-107) mmol/L Carbon Dioxide 18 L (22-30) mmol/L Anion Gap 13 mmol/L BUN 16 (9-20) mg/dL Creatinine 1.19 (0.66-1.25) mg/dL Est GFR (CKD-EPI)AfAm 64 (>60 ml/min/1.73 sqM) Est GFR (CKD-EPI)NonAf 55 (>60 ml/min/1.73 sqM) Glucose 107 H (74-99) mg/dL POC Glucose (mg/dL) 102 H (75-99) mg/dL POC Glu Community Health Planning Director ID Chiquita Sol Calcium 9.7 (8.4-10.2) mg/dL Total Bilirubin 0.8 (0.2-1.3) mg/dL AST 38 (17-59) U/L ALT 22 (4-49) U/L Alkaline Phosphatase 69 (38-126) U/L Total Creatine Kinase (55-170) U/L CK-MB (CK-2) (0.0-2.4) ng/mL CK-MB (CK-2) Rel Index Troponin I (0.000-0.034) ng/mL Total Protein 7.0 (6.3-8.2) g/dL Albumin 4.3 (3.5-5.0) g/dL 07/25/19 07/25/19 Range/Units 14:25 14:25 WBC (3.8-10.6) k/uL RBC (4.30-5.90) m/uL Hgb (13.0-17.5) gm/dL Hct (39.0-53.0) % MCV (80.0-100.0) fL MCH (25.0-35.0) pg MCHC (31.0-37.0) g/dL RDW (11.5-15.5) % Plt Count (150-450) k/uL PT 10.4 (9.0-12.0) sec INR 1.0 (<1.2) APTT 22.2 (22.0-30.0) sec Sodium (137-145) mmol/L Potassium (3.5-5.1) mmol/L Chloride (98-107) mmol/L Carbon Dioxide (22-30) mmol/L Anion Gap mmol/L BUN (9-20) mg/dL Creatinine (0.66-1.25) mg/dL Est GFR (CKD-EPI)AfAm (>60 ml/min/1.73 sqM) Est GFR (CKD-EPI)NonAf (>60 ml/min/1.73 sqM) Glucose (74-99) mg/dL POC Glucose (mg/dL) (75-99) mg/dL POC Glu Community Health Planning Director ID Calcium (8.4-10.2) mg/dL Total Bilirubin (0.2-1.3) mg/dL AST (17-59) U/L ALT (4-49) U/L Alkaline Phosphatase (38-126) U/L Total Creatine Kinase 74 (55-170) U/L CK-MB (CK-2) 1.8 (0.0-2.4) ng/mL CK-MB (CK-2) Rel Index 2.4 Troponin I <0.012 (0.000-0.034) ng/mL Total Protein (6.3-8.2) g/dL Albumin (3.5-5.0) g/dL Critical Care Time Critical Care Time: Yes Total Critical Care Time: 35 Disposition Clinical Impression: Cerebrovascular accident (CVA) Disposition: OTHER INSTITUTION NOT DEFINED Referrals: Pattie Torres MD [Primary Care Provider] - 1-2 days - Out of Hospital Transfer - Req. Specs Out of Hospital Transfer - Requested Specifics: Other Emergency Center ([facility])
[2019-07-25 14:28] LABS: Glucose,Whole Blood 102 mg/dL (75-99)
[2019-07-25] MEDS ORDERED: diphenhydrAMINE 50 MG/ML 1 ML VIAL IVP STA (14:31)
[2019-07-25] MEDS ORDERED: methylPREDNISolone SOD SUCCI 125 MG/2 ML VIAL IV STA (14:31)
[2019-07-25] MEDS ORDERED: FAMOTIDINE 20 MG/2 ML VIAL IV STA (14:31)
[2019-07-25 14:38] LABS: HCT 35.7 % (39.0-53.0); MCH 31.9 pg (25.0-35.0); MCHC 33.7 g/dL (31.0-37.0); MCV 94.8 fL (80.0-100.0); Mean Platelet Volume 7.1; Platelet Count 177 k/uL (150-450); RBC 3.77 m/uL (4.30-5.90); RDW 14.2 % (11.5-15.5); WBC 6.2 k/uL (3.8-10.6)
--- NOTE | 2019-07-25 14:41 | CT ---
EXAMINATION TYPE: CT brain wo con for TPA DATE OF EXAM: 07/25/2019 COMPARISON: 10/07/2018 HISTORY: Confusion, slurred speech CT DLP: 1101.[address] of the brain was performed. The ventricles, basal cisterns and sulci overlying the cerebral convexities demonstrate mild enlargem ent. There is no evidence for intracranial hemorrhage or sulcal effacement. There is decreased attenuation about the periventricular white matter and deep white matter of both c erebral hemispheres, compatible with chronic small vessel ischemia. Differential diagnosis does inclu de demyelination. No mass effects are seen.No midline shift. Osseous calvarium is intact. If symptoms persist consider MRI. IMPRESSION: 1. Age related atrophic and chronic small vessel ischemic change without acute intracranial process s een at this time.
[2019-07-25 14:46] LABS: Creatine Kinase 74 U/L (55-170)
[2019-07-25 14:47] LABS: Albumin 4.3 g/dL (3.5-5.0); Calcium 9.7 mg/dL (8.4-10.2); Partial Thromboplastin Time 22.2 sec (22.0-30.0); Potassium 3.3 mmol/L (3.5-5.1); Prothrombin Time 10.4 sec (9.0-12.0); Total Bilirubin 0.8 mg/dL (0.2-1.3)
[2019-07-25] MEDS ORDERED: Alteplase PER PHARMACY Stroke 1 EACH MISC MISCELLANE PRN (14:55)
[2019-07-25 14:59] LABS: Creatine Kinase MB 1.8 ng/mL (0.0-2.4); Troponin I <0.012 ng/mL (0.000-0.034)
[2019-07-25] MEDS ORDERED: ALTEPLASE BOLUS 8 MG in EMPTY SYRINGE 1 SYR IV STA (14:59)
[2019-07-25] MEDS ORDERED: ALTEPLASE IV STA (14:59)
--- NOTE | 2019-07-25 14:59 | CT ---
EXAMINATION TYPE: CT angio head neck DATE OF EXAM: 07/25/2019 COMPARISON: None HISTORY: Confusion, slurred speech CT DLP: 464 mGycm CONTRAST: Performed with IV Contrast, patient injected with 70 mL of Isovue 370. Combination Contrast CTA cervical carotids and [place] CTA cervical carotids with 3-D recons truction Contrast CTA of the cervical carotids was performed 3-D reconstruction imaging obtained at a separate workstation. Right carotid system: Mild plaque is seen of the right common carotid artery. There is mild plaque a lso noted at the carotid bulb and proximal ICA. No significant diameter reduction. ECA is patent. Right vertebral artery appears unremarkable. Left carotid system: Mild plaque is seen of the left common carotid artery. There is mild plaque als o noted at the carotid bulb and proximal ICA. No significant diameter reduction. ECA is patent. Lef t vertebral artery appears unremarkable. IMPRESSION: 1. No significant diameter reduction to account for the patient's symptoms. CTA [place] with 3-D reconstruction Contrast CTA of the [place] was performed 3-D reconstruction imaging obtained at a separate workstation. Vertebrobasilar system as well as intracranial portions of the internal carotid arteries and their [place] tributaries are patent. I do not see evidence for sizable aneurysm or vascular malformation. Pl ease note MRI provides greater sensitivity and specificity. Visualized brain appears grossly unremar kable. IMPRESSION: 1. No significant abnormality.
[2019-07-25 15:24] LABS: Eosinophils # (M) 0.19 k/uL (0-0.7); Lymphocytes # (M) 2.85 k/uL (1.0-4.8); Monocytes # (M) 0.37 k/uL (0-1.0); Neutrophils # (M) 2.79 k/uL (1.3-7.7); Neutrophils % (M) 45 %; Nucleated Red Blood Cells 0 /100 WBC (0-0); Reactive Lymphocytes Present; Total Cells Counted 100
[2019-07-25] MEDS ORDERED: SODIUM CHLORIDE 0.9% 50 ML MINI-BAG IV ONE (15:56)
[2019-07-25 16:10] LABS: Appearance,Urine Clear (Clear); Bilirubin,Urine Negative (Negative); Blood,Urine Negative (Negative); Color,Urine Light Yellow; Glucose,Urine (UA) Negative (Negative); Ketones,Urine Negative (Negative); Leukocyte Esterase,Urine Negative (Negative); Nitrite,Urine Negative (Negative); Protein,Urine Negative (Negative); Specific Gravity,Urine 1.015 (1.001-1.035); Urobilinogen,Urine <2.0 mg/dL (<2.0)
[2019-07-25 16:25] VITALS: RESP 18
[2019-07-25 17:18] VITALS: BP 182/85; PULSE 18; TEMP 98
== END 2019-07-25 17:42 | disposition other institution (70) ==
LOC: EC 14:15
DX: I63.9 Cerebral infarction, unspecified (principal); R29.702 NIHSS score 2; E11.9 Type 2 diabetes mellitus without complications; I10 Essential (primary) hypertension; K21.9 Gastro-esophageal reflux disease without esophagitis; E78.5 Hyperlipidemia, unspecified; Z79.02 Long term (current) use of antithrombotics/antiplatelets; Z79.84 Long term (current) use of oral hypoglycemic drugs; Z79.899 Other long term (current) drug therapy; Z91.041 Radiographic dye allergy status; Z88.2 Allergy status to sulfonamides; Z96.653 Presence of artificial knee joint, bilateral
CPT/HCPCS: 99291; 96365; 96375 ×3; 36415; 93005; 80053; 82550; 82553; 84484; 85025; 85610; 85730; 81003; 87635; 70496; 70450; 70498; J2997; J1200; J2930; Q9967

== ENCOUNTER → 2019-08-05 | Outpatient (CLI) | payer MEDICARE, BC ==
[2019-08-05 12:05] LABS: Basophils % (A) 1 %; Eosinophils % (A) 2 %; HCT 40.3 % (39.0-53.0); HGB 12.7 gm/dL (13.0-17.5); Lymphocytes # (A) 1.2 k/uL (1.0-4.8); Lymphocytes % (A) 24 %; MCHC 31.4 g/dL (31.0-37.0); MCV 98.9 fL (80.0-100.0); Macrocytosis Slight; Mean Platelet Volume 9.1; Monocytes % (A) 8 %; Neutrophils % (A) 61 %; Platelet Count 171 k/uL (150-450); RBC 4.08 m/uL (4.30-5.90); RDW 15.1 % (11.5-15.5); WBC 4.9 k/uL (3.8-10.6)
[2019-08-05 12:06] LABS: Basophils # (A) 0.1 k/uL (0-0.2); Eosinophils # (A) 0.1 k/uL (0-0.7); Monocytes # (A) 0.4 k/uL (0-1.0)
[2019-08-05 18:32] LABS: African American GFR (CKD) 52.4 (60.0-200.0); Albumin 4.2 g/dL (3.80-4.90); Albumin/Globulin Ratio 2.63 (1.60-3.17); Anion Gap 4.6 mmol/L (4.00-12.00); BUN/Creat Ratio 13.57 Ratio (12.00-20.00); Calcium 9.2 mg/dL (8.7-10.3); Carbon Dioxide 25.4 mmol/L (21.6-31.8); Chol/HDL Ratio 2.98; Globulin 1.6 g/dL (1.6-3.3); LDL Cholesterol,Calculated 68.6 mg/dL (0.0-131.0); Non-African American GFR(CKD) 45.2 (60.0-200.0); Potassium 4.4 mmol/L (3.5-5.5); Total Protein 5.8 g/dL (6.2-8.2); VLDL Calculation 16.4 mg/dL (5.00-40.00)
[2019-08-05 19:07] LABS: Hemoglobin A1C 6.4 % (4.0-6.0)
== END | disposition home or self-care (01) ==
LOC: LABWHC1 10:29
PROVIDERS: ATTEND Internal Medicine
DX: I10 Essential (primary) hypertension (principal); E78.2 Mixed hyperlipidemia; E11.9 Type 2 diabetes mellitus without complications
CPT/HCPCS: 36415; 80053; 80061; 83036; 84443; 85025

== ENCOUNTER → 2020-01-20 | Outpatient (CLI) | payer MEDICARE, BC ==
--- NOTE | 2020-01-20 16:13 | CT ---
EXAMINATION TYPE: CT angio abdomen pelvis DATE OF EXAM: 01/20/2020 COMPARISON: CTA January 09, 2019 HISTORY: Aortic Abdominal Aneurysm without rupture CT DLP: 1403.1 mGycm, Automated Exposure Control for Dose Reduction was Utilized. CONTRAST: CTA scan of the abdomen and pelvis is performed without oral and without and with IV Contrast, patien t injected with 70 mL of Isovue 370. Stent graft protocol with 3-D reconstructed images created on an independent workstation and reviewed. FINDINGS: VASCULAR: Redemonstration of metallic aortobiiliac stent graft beginning marrow level of the renal ar teries extending into the common iliac arteries right before bifurcation. Patent celiac artery along with SMA and bilateral single renal arteries redemonstrated on postcontrast images. Persistent [place] AAA up to 5.9 cm AP diameter axial image 19 series 7 versus 5.6 cm prior study axial image 31. There is extraluminal contrast enhancement along left mid aspect redemonstrated. Feeding vessel is noted j ust inferior to this seen best on series 7 images 25 through 32. LUNG BASES: Posterior fat-containing [place] hernia redemonstrated. Mild/moderate linear scarring i n both bases redemonstrated. LIVER/GB: Gallbladder surgically absent. PANCREAS: No significant abnormality is seen. SPLEEN: No significant abnormality is seen. ADRENALS: No significant abnormality is seen. KIDNEYS: Tiny nonobstructing bilateral renal stones redemonstrated. There are 2 small calculi through out the right kidney and single small calculus left kidney all measuring under 4 mm in size. There is a thin-walled 4.1 cm cyst medially posterior aspect left kidney lower pole level. Inferior to this t here is delayed enhancement and cortical thinning lower pole left kidney, this is likely on basis of accessory left renal artery which is not patent seen on axial image 23 series 7, and from the aorta. Delayed perfusion and cortical thinning lower pole right kidney redemonstrated. Likely occluded acces teresa right renal artery. Central parapelvic thin-walled cysts in both kidneys left greater than right are redemonstrated. BOWEL: Sigmoid colonic diverticulosis redemonstrated. No suspicious small or large bowel dilatation. PROSTATE/SEMINAL VESICLES: Prostate normal in size. A few scattered pelvic phleboliths. LYMPH NODES: No greater than 1cm abdominal or pelvic lymph nodes are appreciated. OSSEOUS STRUCTURES: Underlying scoliosis with [id number] multilevel spurring and disc space n arrowing throughout the spine. Posterior lumbar decompression surgery redemonstrated. OTHER: No significant additional abnormality is seen. 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 Increasing [place] AAA up to 5 .9 cm from prior study 5.6 cm most recent prior study
== END | disposition home or self-care (01) ==
LOC: RADCTMAIN 01-11 11:58
PROVIDERS: ATTEND Internal Medicine Interventional Cardiology
DX: I71.4 Abdominal aortic aneurysm, without rupture (principal); G45.9 Transient cerebral ischemic attack, unspecified; Z88.2 Allergy status to sulfonamides
CPT/HCPCS: 82565; 84520; 36415; 74174; Q9967

== ENCOUNTER 2020-03-31 11:05 | Emergency (ER) | payer BC, MEDICARE ==
[2020-03-31 11:13] VITALS: TEMP 98
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
[2020-03-31 12:08] LABS: Basophils % (A) 1 %; Eosinophils # (A) 0.1 k/uL (0-0.7); Eosinophils % (A) 2 %; HCT 39.3 % (39.0-53.0); HGB 13.5 gm/dL (13.0-17.5); Lymphocytes # (A) 1.1 k/uL (1.0-4.8); Lymphocytes % (A) 25 %; MCH 32.8 pg (25.0-35.0); MCHC 34.3 g/dL (31.0-37.0); MCV 95.8 fL (80.0-100.0); Mean Platelet Volume 7.1; Monocytes # (A) 0.4 k/uL (0-1.0); Monocytes % (A) 10 %; Neutrophils # (A) 2.6 k/uL (1.3-7.7); Neutrophils % (A) 59 %; Platelet Count 145 k/uL (150-450); RBC 4.11 m/uL (4.30-5.90); RDW 13.2 % (11.5-15.5); WBC 4.4 k/uL (3.8-10.6)
[2020-03-31 12:22] LABS: Calcium 9.4 mg/dL (8.4-10.2); Potassium 4.3 mmol/L (3.5-5.1); Total Protein 6.5 g/dL (6.3-8.2)
[2020-03-31 12:24] LABS: Partial Thromboplastin Time 24.2 sec (22.0-30.0); Prothrombin Time 10.8 sec (9.0-12.0)
[2020-03-31] MEDS ORDERED: methylPREDNISolone SOD SUCCI 125 MG/2 ML VIAL IV STA (12:27)
[2020-03-31] MEDS ORDERED: diphenhydrAMINE 50 MG/ML 1 ML VIAL IVP STA (12:28)
[2020-03-31] MEDS ORDERED: FAMOTIDINE 20 MG/2 ML VIAL IV STA (12:28)
--- NOTE | 2020-03-31 14:27 | CT ---
EXAMINATION TYPE: CT angio abdomen pelvis DATE OF EXAM: 03/31/2020 COMPARISON: CTA aorta January 20, 2020 HISTORY: Hx of AAA 5.9 cm[address] Sharp abdominal pain CT DLP: 1961.1 mGycm, Automated Exposure Control for Dose Reduction was Utilized. CONTRAST: CTA scan of the abdomen and pelvis is performed without oral and without and with IV Contrast, patien t injected with 80 ml mL of Isovue 370. Aneurysm protocol with 3-D reconstructed images created on an independent workstation and reviewed. FINDINGS: VASCULAR: Redemonstration of metallic aortobiiliac stent graft beginning near the level of the renal arteries extending into the common iliac arteries terminating right before internal and external bifu rcation. Patent celiac artery along with SMA and bilateral single renal arteries redemonstrated on po stcontrast images. Persistent [place] AAA up to 6.1 cm AP diameter axial image 64 series 401 versus 5. 9 cm prior study. There is persistent dense extraluminal contrast enhancement along left mid aspect r edemonstrated. New less dense contrast opacification in the right periphery of stent graft is identif ied. This extends superiorly from a second area of endoleak near the iliac bifurcation axial image 72 . Feeding vessel is redemonstrated just inferior and anterior to this. Patent stent graft again seen. LUNG BASES: Posterior fat-containing [place] hernia redemonstrated. Mild/moderate linear scarring in both bases redemonstrated. LIVER/GB: Gallbladder redemonstrated surgically absent. PANCREAS: No significant abnormality is seen. SPLEEN: No significant abnormality is seen. ADRENALS: No significant abnormality is seen. KIDNEYS: Tiny nonobstructing bilateral renal stones redemonstrated on noncontrast images. There is a thin-walled 4.1 cm cyst medially posterior aspect left kidney lower pole level. Inferior to this ther e is delayed enhancement and cortical thinning lower pole left kidney anteriorly, this is likely on b asis of accessory left renal artery which is not perfused. Delayed perfusion and cortical thinning lo wer pole right kidney redemonstrated. 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 Central parapelvi c thin-walled cysts in both kidneys left greater than right are redemonstrated. BOWEL: Sigmoid colonic diverticulosis redemonstrated. No suspicious small or large bowel dilatation. PROSTATE/SEMINAL VESICLES: Prostate remains normal in size. Scattered bilateral pelvic phleboliths. LYMPH NODES: No new greater than 1cm abdominal or pelvic lymph nodes are appreciated. OSSEOUS STRUCTURES: Underlying scoliosis with [id number] multilevel spurring and disc space n arrowing throughout the spine. Posterior lumbar decompression surgery redemonstrated. OTHER: No significant additional abnormality is seen. 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 Increasing [place] AAA up to 6 .1 cm on current study. Second or new area of endoleak noted may be related to graft failure. Endovas cular and/or surgical referral advised.
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
[2020-03-31 18:45] VITALS: BP 143/76; PULSE 88; RESP 16
== END 2020-03-31 18:44 | disposition home or self-care (01) ==
LOC: EC 11:05
DX: T82.330A Leakage of aortic (bifurcation) graft (replacement), initial encounter (principal); I71.4 Abdominal aortic aneurysm, without rupture; K21.9 Gastro-esophageal reflux disease without esophagitis; E11.36 Type 2 diabetes mellitus with diabetic cataract; I10 Essential (primary) hypertension; E78.5 Hyperlipidemia, unspecified; M19.90 Unspecified osteoarthritis, unspecified site; Z79.84 Long term (current) use of oral hypoglycemic drugs; Z79.02 Long term (current) use of antithrombotics/antiplatelets; Z79.899 Other long term (current) drug therapy; Z79.82 Long term (current) use of aspirin; Z88.2 Allergy status to sulfonamides; Z91.041 Radiographic dye allergy status; Z96.653 Presence of artificial knee joint, bilateral; Z86.73 Personal history of transient ischemic attack (TIA), and cerebral infarction without residual deficits; Y83.2 Surgical operation with anastomosis, bypass or graft as the cause of abnormal reaction of the patient, or of later complication, without mention of misadventure at the time of the procedure
CPT/HCPCS: 99285 ×2; 96374 ×2; 96375 ×3; 36415; 93005; 80053; 84484; 85025; 85610; 85730; 74174; J1200; J2930; Q9967

== ENCOUNTER → 2020-09-27 | Outpatient (CLI) | payer MEDICARE ==
--- NOTE | 2020-09-27 17:28 | XR ---
EXAMINATION TYPE: XR lumbar spine 2 or 3V DATE OF EXAM: 09/27/2020 CLINICAL HISTORY: Fall TECHNIQUE: Frontal and lateral images of the lumbar spine are obtained. COMPARISON: CTA abdomen pelvis 03/31/2020 FINDINGS: Aortobiiliac stent grafts. Marked dextroscoliosis of the lumbar spine. There are possibly 6 lumbar type vertebral bodies, and numbering will be applied as such for the remainder of this repor t. There are laminectomy turn changes from L3 through through L6 with left-sided bony fusion. There i s also likely fusion of the L2 and L3 vertebral bodies. Marked degenerative disc disease including va cuum disc phenomenon, disc space narrowing, and marked osteophytosis. Vertebral body heights are norm al on frontal radiograph. Vertebral bodies are limited in visualization on lateral radiograph due to significant overlapping scoliotic curvature. IMPRESSION: 1. No acute displaced fracture in the lumbar spine. Vertebral body heights on frontal view are simila r to 03/31/2020 CTA comparison. Limited visualization of the vertebral bodies on lateral view due to s ignificant overlapping and marked dextroscoliotic curvature. 2. Multilevel laminectomy and fusion postsurgical changes of the lumbar spine.
--- NOTE | 2020-09-27 17:33 | XR ---
EXAMINATION TYPE: XR thoracic spine complete DATE OF EXAM: 09/27/2020 CLINICAL HISTORY: Fall TECHNIQUE: Frontal, lateral, and swimmer's view of thoracic spine are obtained. COMPARISON: Two-view chest radiograph 10/07/2018 FINDINGS: There is levocurvature of the mid and inferior thoracic spine. There is increased thoracic kyphosis. There is anterior wedging of multiple midthoracic vertebral bodies. There is moderate degen erative disc disease. IMPRESSION: Increased thoracic kyphosis with mild wedging of multiple midthoracic vertebral bodies, s ome of which are new versus 2019 comparison. If there is clinical concern for acute compression defor mity, recommend correlation with point tenderness and consider MRI exam of the thoracic spine.
--- NOTE | 2020-09-27 17:36 | XR ---
EXAMINATION TYPE: XR Hip Bilateral Complete DATE OF EXAM: 09/27/2020 CLINICAL HISTORY: Fall. Bilateral hip pain. TECHNIQUE: AP and frogleg views of the bilateral hips are obtained. COMPARISON: None. FINDINGS: There is no acute fracture or dislocation of the bilateral hips. There is moderate degener ative change of the bilateral hips, left greater than right. There is dystrophic calcification in the region of the greater trochanter on the left. Calcified atherosclerotic disease. IMPRESSION: There is no acute fracture or dislocation of the bilateral hips.
== END | disposition home or self-care (01) ==
LOC: RADXRMAIN 14:13
PROVIDERS: ATTEND Internal Medicine
DX: M40.294 Other kyphosis, thoracic region (principal); M47.817 Spondylosis without myelopathy or radiculopathy, lumbosacral region; M25.559 Pain in unspecified hip; Z98.890 Other specified postprocedural states
CPT/HCPCS: 72072; 72100; 73521

== ENCOUNTER → 2020-11-04 | Outpatient (CLI) | payer MEDICARE ==
--- NOTE | 2020-11-04 14:02 | XR ---
EXAMINATION TYPE: XR KUB DATE OF EXAM: 11/04/2020 COMPARISON: NONE HISTORY: Hematuria TECHNIQUE: One view abdominal series FINDINGS: The osseous structures are intact. The bowel gas pattern is nonspecific. Scoliosis with severe multi level degenerative disc disease. Vascular calcifications noted with suspected 2 cm splenic artery ane urysm. Arthropathy of the hips. Punctate 2 mm left upper quadrant calcification. Soft tissue ossifica tion seen adjacent to left hip. There is retained fecal debris throughout the colon correlate for con stipation. IMPRESSION: 1. Nonspecific abdomen with no obstruction. 2. 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 3. Punctate left upper quadrant calcification measuring 2 mm could represent a small left renal stone . 4. Postoperative aortic stenting and
== END | disposition home or self-care (01) ==
LOC: RADXRMAIN 13:28
PROVIDERS: ATTEND Internal Medicine
DX: R31.9 Hematuria, unspecified (principal)
CPT/HCPCS: 74018

== ENCOUNTER 2020-12-20 10:06 | Emergency (ER) | payer MEDICARE ==
[2020-12-20] MEDS ORDERED: SODIUM CHLORIDE 0.9% 500 ML 500 ML IV STA (10:21)
[2020-12-20 10:22] VITALS: TEMP 97.8
--- NOTE | 2020-12-20 10:24 | ED ---
General Adult HPI - General Chief complaint: Neuro Symptoms/Deficit Stated complaint: poss stroke Time Seen by Provider: 12/20/20 10:10 Source: patient, EMS, RN notes reviewed, old records reviewed Mode of arrival: EMS Limitations: physical limitation - History of Present Illness Initial comments: This is an 89-year-old male who presents emergency Department complaining of ringing in his left ear which started this morning. Patient also states he's h aving bilateral lower leg weakness below the knees bilaterally. Patient states is also some decreased sensation of both of those legs. Patient states this is been ongoing for about a month. Patient denies any weakness in his arms. Patient denies any headache patient denies any focal weakness or numbness of the upper extremities. Patient is afebrile patient denies any slurred speech. Patient states he just doesn't feel right. - Related Data Home Medications Medication Instructions Recorded Confirmed Atorvastatin [Lipitor] 40 mg PO HS 07/25/19 12/20/20 Clopidogrel [Plavix] 75 mg PO DAILY 07/25/19 12/20/20 atenoloL [Tenormin] 25 mg PO DAILY 07/25/19 12/20/20 hydrALAZINE HCL [Apresoline] 50 mg PO AC-BID 07/25/19 12/20/20 Tamsulosin [Flomax] 0.4 mg PO DAILY 03/31/20 12/20/20 Dapagliflozin Propanediol [Farxiga] 5 mg PO DAILY 12/20/20 12/20/20 Glimepiride [Amaryl] 4 mg PO BID 12/20/20 12/20/20 HYDROcodone/APAP 5-325MG [Vincent 1 tab PO Q12H PRN 12/20/20 12/20/20 5-325] Previous Rx's Medication Instructions Recorded Losartan [Cozaar] 50 mg PO BID #60 tab 10/06/18 Allergies Allergy/AdvReac Type Severity Reaction Status Date / Time Sulfa (Sulfonamide Allergy Severe throat,mouth Verified 12/20/20 11:14 Antibiotics) swelling Iodinated Contrast Media AdvReac very hot Verified 12/20/20 11:14 [Iodinated Contrast Media - feeling IV Dye] Review of Systems ROS Statement: Those systems with pertinent positive or pertinent negative responses have been documented in the HPI. ROS Other: All systems not noted in ROS Statement are negative. Past Medical History Past Medical History: CVA/TIA, Diabetes Mellitus, GERD/Reflux, Hyperlipidemia, Hypertension, Osteoarthritis (OA) Additional Past Medical History / Comment(s): hx polyps,irregular heartrate, hx diverticulitis, kidney stones, enlarged aortic aneurysm History of Any Multi-Drug Resistant Organisms: None Reported Past Surgical History: Appendectomy, Back Surgery, Bowel Resection, Cholecystectomy, Tonsillectomy Additional Past Surgical History / Comment(s): rt cataract, back surgery x 3, mau knee replacement (rt x 2, left x 1) aortic anuerysm repair Past Anesthesia/Blood Transfusion Reactions: Postoperative Nausea & Vomiting (PONV) Additional Past Anesthesia/Blood Transfusion Reaction / Comment(s): no hx blood transfusion Past Psychological History: No Psychological Hx Reported Past Alcohol Use History: None Reported Past Drug Use History: None Reported - Past Family History Mother Family Medical History: Cancer Father Additional Family Medical History / Comment(s): Father at age 61 with history of coronary artery disease and diabetes. Brother(s) Additional Family Medical History / Comment(s): Patient is a total of 5 br others, one from colon cancer with history of coronary artery disease. One at age 39 from a myocardial infarction. One at age 26 from a myocardial infarction. One at age 3 from pneumonia. One brother is age 87 with history of [place] and still living. Sister(s) Additional Family Medical History / Comment(s): The patient has 2 sisters one from a brain aneurysm and one at age 75 from myocardial fraction with some type of heart cancer history. Patient has one son that that had a myocardial infarction at age 65 and 1 daughter with multiple medical problems. General Exam - General Exam Comments Initial Comments: GENERAL: Patient is well-developed and well-nourished. Patient is nontoxic and well- hydrated and is in no acute distress. ENT: Neck is soft and supple. No significant lymphadenopathy is noted. Oropharynx is clear. Moist mucous membranes. Neck has full range of motion without eliciting any pain. EYES: The sclera were anicteric and conjunctiva were pink and moist. Extraocular movements were intact and pupils were equal round and reactive to light. Eyelids were unremarkable. PULMONARY: Unlabored respirations. Good breath sounds bilaterally. No audible rales rhonchi or wheezing was noted. CARDIOVASCULAR: There is a regular rate and rhythm without any murmurs gallops or rubs. ABDOMEN: Soft and nontender with normal bowel sounds. SKIN: Skin is clear with no lesions or rashes and otherwise unremarkable. NEUROLOGIC: Patient is alert and oriented x3. Cranial nerves II through XII are grossly intact. Motor and sensory are also intact. Normal speech, volume and content. Symmetrical smile. Cerebellar exam grossly intact. NIH is 0 MUSCULOSKELETAL: Normal extremities with adequate strength and full range of motion. No lower extremity swelling or edema. No calf tenderness. LYMPHATICS: No significant lymphadenopathy is noted PSYCHIATRIC: Patient appears mildly anxious Limitations: physical limitation Course Vital Signs 12/20/20 12/20/20 10:09 12:02 Temperature 97.8 F Pulse Rate 62 60 Respiratory 24 18 Rate Blood Pressure 158/89 113/64 O2 Sat by Pulse 95 95 Oximetry Medical Decision Making - Medical Decision Making EKG shows normal sinus rhythm at 62 bpm OR interval 262 QRS is 100 QT interval 474 QTC is 41. Patient's EKG shows no ST segment elevation or depression Chest x-ray shows no acute abnormality. CT of the brain shows no acute abnormality. I went back into the room to reevaluate the patient he stated he felt back to his baseline and had no complaint. Patient was able to ambulate at his baseline as well. stated he was at his baseline as far she was concerned. - Lab Data Result diagrams: 12/20/20 10:24 12/20/20 10:24 Lab Results 12/20/20 12/20/20 12/20/20 Range/Units 10:24 10:24 10:24 WBC 5.3 (3.8-10.6) k/uL RBC 4.04 L (4.30-5.90) m/uL Hgb 13.5 (13.0-17.5) gm/dL Hct 40.7 (39.0-53.0) % MCV 100.8 H (80.0-100.0) fL MCH 33.4 (25.0-35.0) pg MCHC 33.1 (31.0-37.0) g/dL RDW 13.3 (11.5-15.5) % Plt Count 154 (150-450) k/uL MPV 7.4 Neutrophils % 53 % Lymphocytes % 35 % Monocytes % 6 % Eosinophils % 2 % Basophils % 1 % Neutrophils # 2.9 (1.3-7.7) k/uL Lymphocytes # 1.8 (1.0-4.8) k/uL Monocytes # 0.3 (0-1.0) k/uL Eosinophils # 0.1 (0-0.7) k/uL Basophils # 0.0 (0-0.2) k/uL Macrocytosis Slight PT 10.6 (9.0-12.0) sec INR 1.0 (<1.2) APTT 22.3 (22.0-30.0) sec Sodium 140 (137-145) mmol/L Potassium 4.2 (3.5-5.1) mmol/L Chloride 113 H (98-107) mmol/L Carbon Dioxide 17 L (22-30) mmol/L Anion Gap 10 mmol/L BUN 17 (9-20) mg/dL Creatinine 1.28 H (0.66-1.25) mg/dL Est GFR (CKD-EPI)AfAm 57 (>60 ml/min/1.73 sqM) Est GFR (CKD-EPI)NonAf 50 (>60 ml/min/1.73 sqM) Glucose 131 H (74-99) mg/dL Calcium 9.5 (8.4-10.2) mg/dL Total Bilirubin 1.2 (0.2-1.3) mg/dL AST 35 (17-59) U/L ALT 24 (4-49) U/L Alkaline Phosphatase 76 (38-126) U/L Troponin I (0.000-0.034) ng/mL Total Protein 6.2 L (6.3-8.2) g/dL Albumin 3.8 (3.5-5.0) g/dL Urine Color Urine Appearance (Clear) Urine pH (5.0-8.0) Ur Specific [place] (1.001-1.035) Urine Protein (Negative) Urine Glucose (UA) (Negative) Urine Ketones (Negative) Urine Blood (Negative) Urine Nitrite (Negative) Urine Bilirubin (Negative) Urine Urobilinogen (<2.0) mg/dL Ur Leukocyte Esterase (Negative) Urine RBC (0-5) /hpf Urine WBC (0-5) /hpf Ur Squamous Epith Cells (0-4) /hpf Urine Bacteria (None) /hpf Urine Mucus (None) /hpf 12/20/20 12/20/20 Range/Units 10:24 11:41 WBC (3.8-10.6) k/uL RBC (4.30-5.90) m/uL Hgb (13.0-17.5) gm/dL Hct (39.0-53.0) % MCV (80.0-100.0) fL MCH (25.0-35.0) pg MCHC (31.0-37.0) g/dL RDW (11.5-15.5) % Plt Count (150-450) k/uL MPV Neutrophils % % Lymphocytes % % Monocytes % % Eosinophils % % Basophils % % Neutrophils # (1.3-7.7) k/uL Lymphocytes # (1.0-4.8) k/uL Monocytes # (0-1.0) k/uL Eosinophils # (0-0.7) k/uL Basophils # (0-0.2) k/uL Macrocytosis PT (9.0-12.0) sec INR (<1.2) APTT (22.0-30.0) sec Sodium (137-145) mmol/L Potassium (3.5-5.1) mmol/L Chloride (98-107) mmol/L Carbon Dioxide (22-30) mmol/L Anion Gap mmol/L BUN (9-20) mg/dL Creatinine (0.66-1.25) mg/dL Est GFR (CKD-EPI)AfAm (>60 ml/min/1.73 sqM) Est GFR (CKD-EPI)NonAf (>60 ml/min/1.73 sqM) Glucose (74-99) mg/dL Calcium (8.4-10.2) mg/dL Total Bilirubin (0.2-1.3) mg/dL AST (17-59) U/L ALT (4-49) U/L Alkaline Phosphatase (38-126) U/L Troponin I <0.012 (0.000-0.034) ng/mL Total Protein (6.3-8.2) g/dL Albumin (3.5-5.0) g/dL Urine Color Light Yellow Urine Appearance Clear (Clear) Urine pH 7.5 (5.0-8.0) Ur Specific [place] 1.003 (1.001-1.035) Urine Protein Negative (Negative) Urine Glucose (UA) 4+ H (Negative) Urine Ketones Negative (Negative) Urine Blood Large H (Negative) Urine Nitrite Negative (Negative) Urine Bilirubin Negative (Negative) Urine Urobilinogen <2.0 (<2.0) mg/dL Ur Leukocyte Esterase Negative (Negative) Urine RBC 76 H (0-5) /hpf Urine WBC 6 H (0-5) /hpf Ur Squamous Epith Cells <1 (0-4) /hpf Urine Bacteria Rare H (None) /hpf Urine Mucus Rare H (None) /hpf Disposition Clinical Impression: Leg pain, Tinnitus Disposition: HOME SELF-CARE Condition: Good Instructions (If sedation given, give patient instructions): Tinnitus (ED) Is patient prescribed a controlled substance at d/c from ED?: No Referrals: Pattie Torres MD [Primary Care Provider] - 1-2 days Time of Disposition: 13:04
[2020-12-20] MEDS ORDERED: LORazepam 2 MG/ML INJ IV STA (10:25)
[2020-12-20 10:37] LABS: Basophils % (A) 1 %; Eosinophils # (A) 0.1 k/uL (0-0.7); Eosinophils % (A) 2 %; HCT 40.7 % (39.0-53.0); HGB 13.5 gm/dL (13.0-17.5); Lymphocytes # (A) 1.8 k/uL (1.0-4.8); Lymphocytes % (A) 35 %; MCH 33.4 pg (25.0-35.0); MCHC 33.1 g/dL (31.0-37.0); MCV 100.8 fL (80.0-100.0); Macrocytosis Slight; Mean Platelet Volume 7.4; Monocytes # (A) 0.3 k/uL (0-1.0); Monocytes % (A) 6 %; Neutrophils # (A) 2.9 k/uL (1.3-7.7); Neutrophils % (A) 53 %; Platelet Count 154 k/uL (150-450); RBC 4.04 m/uL (4.30-5.90); RDW 13.3 % (11.5-15.5); WBC 5.3 k/uL (3.8-10.6)
[2020-12-20 10:51] LABS: Partial Thromboplastin Time 22.3 sec (22.0-30.0); Prothrombin Time 10.6 sec (9.0-12.0)
--- NOTE | 2020-12-20 10:53 | CT ---
EXAMINATION TYPE: CT brain wo con for TPA DATE OF EXAM: 12/20/2020 COMPARISON: 07/25/2019 INDICATION: buzzing Lt side of head DLP: 1129.4 mGycm, Automated exposure control for dose reduction was used. CONTRAST: None CT of the brain is performed utilizing 3 mm thick sections through the posterior fossa and 3 mm thick sections through the remaining calvarium. Study is performed within 24 hours of arrival to the hosp ital. No abnormal hyperdensity is present to suggest an acute intracranial hemorrhage. No mass lesion is evident. Physiologic basal ganglion calcifications in the bilateral basal ganglion No acute infarcts are evident. Periventricular white matter hypodensity is present, likely on the bas is of chronic white matter ischemic changes. This was present previously. Ventricles and sulci are slightly prominent for the patient age. Paranasal sinuses and mastoid air cells within the [id number] are clear. IMPRESSIONS: 1. Mild age-related atrophy with chronic appearing periventricular white matter ischemic-type latanya phelps.
--- NOTE | 2020-12-20 10:56 | XR ---
EXAMINATION TYPE: XR chest 2V DATE OF EXAM: 12/20/2020 COMPARISON: Chest x-ray October 07, 2018 HISTORY: Altered mental status and weakness. TECHNIQUE: Frontal and lateral views of the chest are obtained. FINDINGS: Low lung volumes with chronic left lateral basilar scarring and/or atelectasis redemonstra deepak. No new focal airspace opacity, pleural effusion, or pneumothorax seen bilaterally. The cardiac silhouette size is stable and within normal limits. Stent graft in the abdominal aorta is partially imaged. The osseous structures are demineralized. Degenerative changes bilateral glenohumeral joints noted. IMPRESSION: Chronic changes and low lung volumes without new acute pulmonary process.
[2020-12-20 11:25] LABS: Albumin 3.8 g/dL (3.5-5.0); Calcium 9.5 mg/dL (8.4-10.2); Potassium 4.2 mmol/L (3.5-5.1); Total Bilirubin 1.2 mg/dL (0.2-1.3); Total Protein 6.2 g/dL (6.3-8.2)
[2020-12-20 11:58] LABS: Appearance,Urine Clear (Clear); Bacteria,Urine Rare /hpf; Bilirubin,Urine Negative (Negative); Blood,Urine Large (Negative); Color,Urine Light Yellow; Glucose,Urine (UA) 4+ (Negative); Ketones,Urine Negative (Negative); Leukocyte Esterase,Urine Negative (Negative); Mucus,Urine Rare /hpf; Nitrite,Urine Negative (Negative); PH, Urine 7.5 (5.0-8.0); Protein,Urine Negative (Negative); RBC,Urine 76 /hpf (0-5); Specific Gravity,Urine 1.003 (1.001-1.035); Squamous Epithelial Cell,Urine <1 /hpf (0-4); Urobilinogen,Urine <2.0 mg/dL (<2.0); WBC,Urine 6 /hpf (0-5)
[2020-12-20 12:04] VITALS: BP 113/64; PULSE 60; RESP 18
== END 2020-12-20 13:26 | disposition home or self-care (01) ==
LOC: EC 10:06
DX: M79.661 Pain in right lower leg (principal); M79.662 Pain in left lower leg; H93.13 Tinnitus, bilateral; E11.9 Type 2 diabetes mellitus without complications; E78.5 Hyperlipidemia, unspecified; I10 Essential (primary) hypertension; Z88.2 Allergy status to sulfonamides; Z88.8 Allergy status to other drugs, medicaments and biological substances; Z79.84 Long term (current) use of oral hypoglycemic drugs; Z79.899 Other long term (current) drug therapy; Z86.73 Personal history of transient ischemic attack (TIA), and cerebral infarction without residual deficits
CPT/HCPCS: 36415; 93005; 80053; 84484; 85025; 85610; 85730; 81001; 71046; 70450; 99285; 96374; 96361; J2060

== ENCOUNTER → 2020-12-30 | Outpatient (CLI) | payer MEDICARE ==
--- NOTE | 2020-12-30 16:42 | CT ---
EXAMINATION TYPE: CT urogram wo/w con DATE OF EXAM: 12/30/2020 COMPARISON: 03/31/2020 INDICATION: Abnormal findings on cytological exam, hematuria, recent infection. LT hip/flank pain DLP: 3394 mGycm, Automated exposure control for dose reduction was used. CONTRAST: 80 mL of Isovue 300. Study performed TECHNIQUE: Axial images were obtained from above the diaphragm to the pubic rami in the axial plane a t 5 mm thick sections. Reconstructed images are reviewed on the computer in the coronal plane. Thre e-D reconstructed images kidneys and renal collecting systems was performed on a separate computer by the technologist. FINDINGS: Limited CT sections are obtained the lung bases. There is some chronic appearing streaky opacities t o the posterior medial right lung base, present previously. Calcified granuloma is in the lateral rig ht lung base. CT ABDOMEN: Liver: Normal Spleen: Scattered calcifications are within the spleen. Pancreas: Normal Adrenal glands: The adrenal glands are normal. Gallbladder: Not visualized Kidneys: No masses are evident. No hydronephrosis is present. Posterior left renal cyst measuring 4 .4 cm is present. Some peripelvic cysts may be present on the left. Punctate nonobstructing renal st ones on the left may be present. Three-D reconstructed images were performed over the kidneys and ureters and urinary bladder. Aorta: Aortic stent is present. Aortic wall calcification is noted. Some increased density is within the aneurysm on precontrast imaging. Following contrast administration contrasts is present external to the stent, example images series 6 image 31, series 8 image 34, Series 7 image 28. Inferior vena cava: Normal. CT PELVIS: Loops of bowel within the abdomen and pelvis are normal. Study is without oral contrast limiting bowel evaluation. Appendix: Not identified. No dilated tubular structure or inflammatory change is evident. Urinary bladder: Normal. Genitourinary structures: Prostate is slight prominence. Osseous structures: No suspicious lytic or sclerotic lesions are evident. Facet degenerative changes are within the lumbar spine. IMPRESSIONS: 1. No suspicious acute changes CT urogram. 2. Peripelvic cysts and left renal cortical cyst. 3. Note is made of an endovascular leak within the patient's abdominal aneurysm. A Yellow level critical message alert has been initiated for Pattie Torres MD via the [facility] Critical Results System on 12/30/2020 4:40 PM. This message alert has been sent to Pattie Torres MD vi a the preferences provided by the clinician for the receipt of Radiology Critical Findings. Message I D [id number].
== END | disposition home or self-care (01) ==
LOC: RADCTMAIN 11:12
PROVIDERS: ATTEND Internal Medicine
DX: R82.89 Other abnormal findings on cytological and histological examination of urine (principal); N28.1 Cyst of kidney, acquired
CPT/HCPCS: 82565; 84520; 74178; 36415; 74400; Q9967

== ENCOUNTER → 2021-05-04 | Outpatient (CLI) | payer MEDICARE ==
[~2021-05-04] MED LIST changes: -LACTATED RINGERS 1,000 ML IV SCH; +REGADENOSON 0.4 MG/5 ML SYRINGE IV PRN
--- NOTE | 2021-05-04 20:26 | CT ---
EXAMINATION TYPE: CT abdomen pelvis w con DATE OF EXAM: 05/04/2021 COMPARISON: CT dated 12/30/2020 HISTORY: Carcinoma left ureter CT DLP: 1712 mGycm Automated exposure control for dose reduction was used. TECHNIQUE: Helical acquisition of images was performed from the lung bases through the pelvis. CONTRAST: Performed with Oral Contrast and with IV Contrast, patient injected with 80 mL of Isovue 300. FINDINGS: Interval reduction in the size of the previously seen soft tissue thickening at the upper to midporti on of the left ureter, measuring 12 x 18 x 9 mm compared to 16 x 26 x 12 mm previously. This most lik luke represents the known left ureteric cancer. No left-sided hydroureter or hydronephrosis. No other definite ureteric lesion by this venous phase CT scan. 4 mm nonobstructing stone at the midportion of the left kidney. Multiple variable sized left parapelv ic renal cysts with left posterior simple cortical renal cyst. Renal cortical scarring seen at the po sterior aspect of the right kidney, appreciated previously. No right-sided hydroureter or hydronephro sis. Grossly unremarkable urinary bladder. Prostatic concretion. Unremarkable seminal vesicles. No definite hepatic focal lesion. Previous cholecystectomy. Stable 13 mm hyperenhancing focus at that the midportion of the spleen, possibly representing a hemangioma. Atrophic pancreas. Prominent CBD, stable. Unremarkable adrenals. Extensive arterial atherosclerotic calcifications. Infrarenal abdomina l aortic aneurysmal repair with aortobifemoral bypass graft. Redemonstration of the previously seen e ndovascular leak without interval progression. Unremarkable stomach, duodenum and small bowel. Colonic diverticulosis most evident involving the sig moid colon. No suspicious lymphadenopathy or sizable ascites. Persistent bilateral scrotal hydrocele. Bilateral fat-containing inguinal hernias. Cardiomegaly with coronary arterial calcifications. Uncha nged lung bases. Severe dextroscoliosis of the lumbar spine with severe degenerative changes and stab le postsurgical changes. IMPRESSION: Interval reduction of the size of the previously seen soft tissue thickening along the upper to midpo rtion of the left ureter likely representing the known ureteric cancer. No evidence of metastatic dis ease seen in the abdomen or the pelvis. Other interval changes and incidental findings as detailed ab ove.
== END | disposition home or self-care (01) ==
LOC: RADCTMAIN 11:27
PROVIDERS: ATTEND Urology
DX: C66.2 Malignant neoplasm of left ureter (principal)
CPT/HCPCS: 82565; 84520; 74177; 36415; J2785; Q9967

== ENCOUNTER → 2021-07-11 | Outpatient (CLI) | payer MEDICARE ==
--- NOTE | 2021-07-11 20:21 | CT ---
EXAMINATION TYPE: CT urogram wo/w con CT DLP: 3101 mGycm, Automated exposure control for dose reduction was used. DATE OF EXAM: 07/11/2021 3:09 PM COMPARISON: CT abdomen pelvis most recent from 05/04/2021. 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 Coronal and sagittal reformats were performed. O ne or more CT dose reduction strategies were utilized during this examination. 2D and 3D reconstructi ons are performed to assist visualization of the urinary tract on a separate workstation. FINDINGS: GENITOURINARY: RIGHT KIDNEY AND URETER: Atrophic there is a cortical thinning likely representing prior scarring. No calculi. No hydronephrosis or hydroureter. No renal mass or other lesions. No urothelial lesions: no filling defect, dilation, stricture or wall thickening. LEFT KIDNEY AND URETER: Focal thickening of the left proximal ureter is similar in size from 12/31/19 21 and larger from prior on 05/04/2021. Currently measuring 18 x 15 x 11 mm (CC, AP, TV). Nonobstructi ng 4 mm calculus. No hydronephrosis or hydroureter. No renal mass, there is left renal cyst measuring 4.5 cm. Scattered peripelvic renal cysts are present. URINARY BLADDER: Normal, no calculi, mass or other lesions. REPRODUCTIVE: Partially visualized hydroceles bilaterally. ABDOMEN LIVER: Unremarkable. GALLBLADDER AND BILE DUCTS: Gallbladder is not definitively visualized and may be surgically absent. Mild extrahepatic biliary dilatation is unchanged. PANCREAS: Unremarkable. SPLEEN: Enhancing area within the spleen likely representing hemangioma measuring up to 11 mm unchang ed dating back to at least 2019. ADRENAL GLANDS: Unremarkable. STOMACH AND BOWEL: Colonic diverticulosis pronounced in the sigmoid colon. No evidence of bowel obstr uction. PERITONEUM: No evidence of pneumoperitoneum, free fluid, or adenopathy. VASCULATURE: Aortobiiliac stent graft present with contrast seen within the excluded lumen consistent with known endoleak type II. The excluded lumen overall is not significantly changed from prior urog charo dated 12/30/2020 and measures up to 0.5 cm in AP dimension. The stent graft is patent. 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 There is significant endplate spurring osteophyte formation disc space narrowing and vacuum disc phenomenon and facet joint arthropathy throughout the lumbar spine. Varying degrees of neural foraminal stenosis and lumbar spine spinal canal stenosis. Findings have progresse d over the years compared to 2017. There is severe degeneration changes to the hips some sclerosis an d subchondral cystic changes. SOFT TISSUE/ABDOMINAL WALL: Unremarkable. LOWER CHEST: Mild coronary artery atherosclerosis partially visualized. Right fat containing [place] k hernia present. IMPRESSION: 1. Increase in size of left proximal ureteral soft tissue thickening compared to immediate prior on , however it is similar in size to 12/30/2020 exam. Clinical correlation advised. No evidence for metastatic disease. 2. Stable appearance of aortic aneurysm with patent aortobiiliac stent graft. The lumen remains dilat ed near the proximal portion with findings of persistent type II endoleak. 3. Nonobstructing left renal calculus. 4. Partially visualized bilateral hydroceles. 5. Colonic diverticulosis.
== END | disposition home or self-care (01) ==
LOC: RADCTMAIN 13:28
PROVIDERS: ATTEND Urology
DX: C66.2 Malignant neoplasm of left ureter (principal)
CPT/HCPCS: 82565; 84520; 74178; 36415; 74400; Q9967

== ENCOUNTER → 2022-01-10 | Outpatient (CLI) | payer MEDICARE ==
--- NOTE | 2022-01-11 08:35 | CT ---
EXAMINATION TYPE: CT lumbar spine wo con CT DLP: 985.3 mGycm, Automated exposure control for dose reduction was used. DATE OF EXAM: 01/10/2022 4:58 PM COMPARISON: CT urogram 07/11/2021, CT abdomen pelvis dating back to 12/13/2015.. 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 Soft tissue and bone windows in coronal and sagittal planes were obtained and reviewed. FINDINGS: Alignment: There are 5 lumbar type vertebral bodies. There is scattered dextro scoliosis apex L3. Bone: Degeneration changes with postsurgical laminectomy changes from L2 to L5. Osteophyte formation with disc space narrowing and dextroscoliosis are present. There is postsurgical changes to the iliac bone on the right. Osteophyte formation is seen throughout the spine with loss of disc space. Discs: T12-L1: Osteophyte formation and facet joint arthropathy result in moderate to severe spinal canal st enosis as well as moderate to severe bilateral neural foraminal stenosis. L1-L2: Facet joint arthropathy osteophyte formation results in moderate spinal canal stenosis. There is moderate to severe right and moderate left neural foraminal stenosis. L2-L3: Facet joint arthropathy without significant spinal canal stenosis there is moderate to severe left and moderate right neural foraminal stenosis. Laminectomy changes at this level. L3-L4: Osteophyte formation with bulging and facet joint arthropathy result in mild spinal canal sten osis and moderate to severe left and moderate right neural foraminal stenosis. Laminectomy changes at this level. L4-L5: Osteophyte with facet joint arthropathy result in mild spinal canal stenosis and moderate lef t and [id number] right neural foraminal stenosis.Laminectomy changes at this level. L5-S1: Facet joint arthropathy without significant spinal canal stenosis. There is moderate neural fo raminal stenosis bilaterally. Laminectomy changes at this level. Other: Left ureteral stent with tip in appropriate position within the left renal collecting system. Aortobiiliac stent grafts are present scattered clonic diverticula present. IMPRESSION: 1. No evidence of fracture of the lumbar spine. 2. Moderate to severe multilevel disc degeneration changes with spinal canal stenosis worse at T12-L1 with moderate to severe spinal canal stenosis and moderate to severe bilateral neural foraminal sten osis. Additional multilevel scattered neural foraminal stenosis as described above. Findings have pro gressed from 2016.
== END | disposition home or self-care (01) ==
LOC: RADCTMAIN 16:40
PROVIDERS: ATTEND Physical Medicine & Rehabilitation
DX: M47.817 Spondylosis without myelopathy or radiculopathy, lumbosacral region (principal); M41.26 Other idiopathic scoliosis, lumbar region; M48.062 Spinal stenosis, lumbar region with neurogenic claudication; M51.16 Intervertebral disc disorders with radiculopathy, lumbar region; M16.11 Unilateral primary osteoarthritis, right hip
CPT/HCPCS: 72131

== ENCOUNTER 2022-06-07 17:32 | Emergency (ER) | payer MEDICARE ==
[2022-06-07 17:48] VITALS: BP 177/85; PULSE 65; RESP 16; TEMP 98.2
[2022-06-07] MEDS ORDERED: HYDROmorphone 0.5 MG/0.5 ML SYRINGE IVP STA (18:06)
[2022-06-07] MEDS ORDERED: ONDANSETRON 4 MG/2 ML VIAL IVP STA (18:06)
[2022-06-07] MEDS ORDERED: SODIUM CHLORIDE 0.9% 500 ML 500 ML IV STA (18:06)
[2022-06-07] MEDS ORDERED: MAG HYDROX/AL HYDROX/SIMETH 30 ML, HYOSCYAMINE ELIXIR 10 ML, LIDOCAINE VISCOUS 2% 10 ML PO STA ×3 (18:07)
--- NOTE | 2022-06-07 18:08 | ED ---
General Adult HPI - General Chief complaint: Allergic Reaction Stated complaint: Throat discomfort Time Seen by Provider: 06/07/22 17:56 Source: patient, family, RN notes reviewed Mode of arrival: wheelchair Limitations: no limitations - History of Present Illness Initial comments: Patient is a pleasant 89-year-old male presenting to the emergency department with concerns with throat discomfort. Patient did have bladder cancer surgery yesterday. Patient was intubated. Patient has had throat discomfort since this morning that has been persistent. This is not getting worse. Patient has not noticed any swelling of the lips or tongue. Patient states it is somewhat difficult to swallow secondary to discomfort. No dyspnea. No history of simila r symptoms previously. Patient denies any difficulty with abdominal pain or bladder. - Related Data Home Medications Medication Instructions Recorded Confirmed Atorvastatin [Lipitor] 40 mg PO HS 07/25/19 12/20/20 Clopidogrel [Plavix] 75 mg PO DAILY 07/25/19 12/20/20 atenoloL [Tenormin] 25 mg PO DAILY 07/25/19 12/20/20 hydrALAZINE HCL [Apresoline] 50 mg PO AC-BID 07/25/19 12/20/20 Tamsulosin [Flomax] 0.4 mg PO DAILY 03/31/20 12/20/20 Dapagliflozin Propanediol [Farxiga] 5 mg PO DAILY 12/20/20 12/20/20 Glimepiride [Amaryl] 4 mg PO BID 12/20/20 12/20/20 HYDROcodone/APAP 5-325MG [[place] 1 tab PO Q12H PRN 12/20/20 12/20/20 5-325] Previous Rx's Medication Instructions Recorded Losartan [Cozaar] 50 mg PO BID #60 tab 10/06/18 Cephalexin [Keflex] 500 mg PO QID #20 cap 06/07/22 Allergies Allergy/AdvReac Type Severity Reaction Status Date / Time Sulfa (Sulfonamide Allergy Severe throat,mouth Verified 12/20/20 11:14 Antibiotics) swelling ciprofloxacin Allergy Swelling Verified 06/07/22 19:10 Iodinated Contrast Media AdvReac very hot Verified 12/20/20 11:14 [Iodinated Contrast Media - feeling IV Dye] Review of Systems ROS Statement: Those systems with pertinent positive or pertinent negative responses have been documented in the HPI. ROS Other: All systems not noted in ROS Statement are negative. Constitutional: Denies: fever Eyes: Denies: eye pain ENT: Reports: as per HPI, throat pain. Denies: ear pain Respiratory: Denies: cough Cardiovascular: Denies: chest pain Endocrine: Denies: fatigue Gastrointestinal: Denies: abdominal pain Genitourinary: Denies: urgency Musculoskeletal: Denies: back pain Skin: Denies: rash Past Medical History Past Medical History: Cancer, CVA/TIA, Diabetes Mellitus, GERD/Reflux, Hyperlipidemia, Hypertension, Osteoarthritis (OA) Additional Past Medical History / Comment(s): hx polyps,irregular heartrate, hx diverticulitis, kidney stones, enlarged aortic aneurysm. bladder cancer History of Any Multi-Drug Resistant Organisms: None Reported Past Surgical History: Appendectomy, Back Surgery, Bowel Resection, Cholecystectomy, Tonsillectomy Additional Past Surgical History / Comment(s): rt cataract, back surgery x 3, mau knee replacement (rt x 2, left x 1) aortic anuerysm repair.bladder surgery Past Anesthesia/Blood Transfusion Reactions: Postoperative Nausea & Vomiting (PONV) Additional Past Anesthesia/Blood Transfusion Reaction / Comment(s): no hx blood transfusion Past Psychological History: No Psychological Hx Reported Past Alcohol Use History: None Reported Past Drug Use History: None Reported - Past Family History Mother Family Medical History: Cancer Father Additional Family Medical History / Comment(s): Father at age 61 with history of coronary artery disease and diabetes. Brother(s) Additional Family Medical History / Comment(s): Patient is a total of 5 brothers, one from colon cancer with history of coronary artery disease. One at age 39 from a myocardial infarction. One at age 26 from a myocardial infarction. One at age 3 from pneumonia. One brother is age 87 with history of [place] and still living. Sister(s) Additional Family Medical History / Comment(s): The patient has 2 sisters one from a brain aneurysm and one at age 75 from myocardial fraction with some type of heart cancer history. Patient has one son that that had a myocardial infarction at age 65 and 1 daughter with multiple medical problems. General Exam Limitations: no limitations General appearance: alert, in no apparent distress Head exam: Present: normocephalic Eye exam: Present: normal appearance, PERRL ENT exam: Present: normal oropharynx, other (No angioedema visualized of the lips, tongue, or pharynx) Neck exam: Present: normal inspection. Absent: tenderness, meningismus Respiratory exam: Present: normal lung sounds bilaterally. Absent: respiratory distress, wheezes Cardiovascular Exam: Present: regular rate, normal rhythm GI/Abdominal exam: Present: soft. Absent: tenderness Extremities exam: Present: normal inspection Neurological exam: Present: alert Psychiatric exam: Present: normal affect, normal mood Skin exam: Present: normal color Course Vital Signs 06/07/22 17:44 Temperature 98.2 F Pulse Rate 65 Respiratory 16 Rate Blood Pressure 177/85 O2 Sat by Pulse 97 Oximetry Medical Decision Making - Medical Decision Making Was pt. sent in by a medical professional or institution ([facility], [employer]ILIZER SERVICER, urgent care, hospital, or intermediate...) When possible be specific @ -No Did you speak to anyone other than the patient for history (EMS, parent, family, police, friend...)? What history was obtained from this source @ -family helps w history Did you review nursing and triage notes (agree or disagree)? Why? @ -I reviewed nursing and triage notes, patient denies swelling of the tongue or lips and there is none on exam. Were old charts reviewed (outside hosp., previous admission, EMS record, old EKG, old radiological studies, urgent care reports/EKG's, intermediate records)? Report findings @ -No old charts were reviewed Differential Diagnosis (chest pain, altered mental status, abdominal pain women, abdominal pain men, vaginal bleeding, weakness, fever, dyspnea, syncope, headac he, dizziness, GI bleed, back pain, seizure, CVA, palpatations, mental health)? @ -not applicable EKG interpreted by me (3pts min.). @ -As above X-rays interpreted by me (1pt min.). @ -ST neck shows nad CT interpreted by me (1pt min.). @ -None done U/S interpreted by me (1pt. min.). @ -None done What testing was considered but not performed or refused? (CT, X-rays, U/S, labs)? Why? @ -None What meds were considered but not given or refused? Why? @ -None Did you discuss the management of the patient with other professionals (pro fessionals i.e. Dr., PA, LIQUID FERTILIZER SERVICER, lab, RT, psych nurse, aids social worker, radial saw operator, teacher, navy airspace officer, top case assembler)? Give summary @ -No Was smoking cessation discussed for >3mins.? @ -No Was critical care preformed (if so, how long)? @ -No Were there social determinants of health that impacted care today? How? (Homelessness, low income, unemployed, alcoholism, drug addiction, transporta tion, low edu. Level, literacy, decrease access to med. care, detention, rehab)? @ -No Was there de-escalation of care discussed even if they declined (Discuss DNR or withdrawal of care, Hospice)? DNR status @ -No What co-morbidities impacted this encounter? (DM, HTN, Smoking, COPD, CAD, Cancer, CVA, ARF, Chemo, Hep., AIDS, mental health diagnosis, sleep apnea, morbid obesity)? @ -None Was patient admitted / discharged? Hospital course, mention meds given and route, prescriptions, significant lab abnormalities, going to OR and other pertinent info. @ -pt still sx free. family now questions tounge swelling w cipro and requests new rx Undiagnosed new problem with uncertain prognosis? @ -No Drug Therapy requiring intensive monitoring for toxicity (Heparin, Nitro, Insulin, Cardizem)? @ -No Were any procedures done? @ -No Diagnosis/symptom? @ -tounge swellingacute Acute, or Chronic, or Acute on Chronic? @ -acutet Uncomplicated (without systemic symptoms) or Complicated (systemic symptoms)? @ -default Side effects of treatment? @ -No Exacerbation, Progression, or Severe Exacerbation? @ -No Poses a threat to life or bodily function? How? (Chest pain, [place], [place], pneumonia, PE, COPD, DKA, ARF, appy, cholecystitis, CVA, Diverticulitis, Homicidal, Suicidal, threat to staff... and all critical care pts) @ -No - Lab Data Result diagrams: 06/07/22 18:45 06/07/22 18:45 Lab Results 06/07/22 06/07/22 Range/Units 18:45 18:45 WBC 5.3 (3.8-10.6) k/uL RBC 3.77 L (4.30-5.90) m/uL Hgb 12.2 L (13.0-17.5) gm/dL Hct 35.9 L (39.0-53.0) % MCV 95.3 (80.0-100.0) fL MCH 32.3 (25.0-35.0) pg MCHC 33.9 (31.0-37.0) g/dL RDW 14.8 (11.5-15.5) % Plt Count 130 L (150-450) k/uL MPV 8.5 Neutrophils % 78 % Lymphocytes % 14 % Monocytes % 5 % Eosinophils % 0 % Basophils % 0 % Neutrophils # 4.1 (1.3-7.7) k/uL Lymphocytes # 0.7 L (1.0-4.8) k/uL Monocytes # 0.3 (0-1.0) k/uL Eosinophils # 0.0 (0-0.7) k/uL Basophils # 0.0 (0-0.2) k/uL Sodium 131 L (137-145) mmol/L Potassium 4.9 (3.5-5.1) mmol/L Chloride 102 (98-107) mmol/L Carbon Dioxide 23 (22-30) mmol/L Anion Gap 6 mmol/L BUN 19 (9-20) mg/dL Creatinine 1.18 (0.66-1.25) mg/dL Est GFR (CKD-EPI)AfAm 63 (>60 ml/min/1.73 sqM) Est GFR (CKD-EPI)NonAf 54 (>60 ml/min/1.73 sqM) Glucose 152 H (74-99) mg/dL Calcium 8.6 (8.4-10.2) mg/dL Total Bilirubin 1.7 H (0.2-1.3) mg/dL AST 41 (17-59) U/L ALT 24 (4-49) U/L Alkaline Phosphatase 76 (38-126) U/L Total Protein 6.2 L (6.3-8.2) g/dL Albumin 3.8 (3.5-5.0) g/dL Disposition Clinical Impression: Allergic reaction, Vomiting Disposition: HOME SELF-CARE Condition: Stable Instructions (If sedation given, give patient instructions): Antibiotic Medication Allergy (ED), Acute Nausea and Vomiting (ED) Additional Instructions: stop cipro. Medication sent to pharmacy. F/U PCP 1-2 days for recheck. Return for difficulity breathing, swelling, not tollerating liquids, worsening problems. Prescriptions: Cephalexin [Keflex] 500 mg PO QID #20 cap Is patient prescribed a controlled substance at d/c from ED?: No Referrals: Pattie Torres MD [Primary Care Provider] - 1-2 days Time of Disposition: 19:56
[2022-06-07 19:04] LABS: Basophils % (A) 0 %; Eosinophils % (A) 0 %; HCT 35.9 % (39.0-53.0); HGB 12.2 gm/dL (13.0-17.5); Lymphocytes # (A) 0.7 k/uL (1.0-4.8); Lymphocytes % (A) 14 %; MCH 32.3 pg (25.0-35.0); MCHC 33.9 g/dL (31.0-37.0); MCV 95.3 fL (80.0-100.0); Mean Platelet Volume 8.5; Monocytes # (A) 0.3 k/uL (0-1.0); Monocytes % (A) 5 %; Neutrophils # (A) 4.1 k/uL (1.3-7.7); Neutrophils % (A) 78 %; Platelet Count 130 k/uL (150-450); RBC 3.77 m/uL (4.30-5.90); RDW 14.8 % (11.5-15.5); WBC 5.3 k/uL (3.8-10.6)
[2022-06-07 19:17] LABS: Albumin 3.8 g/dL (3.5-5.0); Calcium 8.6 mg/dL (8.4-10.2); Total Bilirubin 1.7 mg/dL (0.2-1.3); Total Protein 6.2 g/dL (6.3-8.2)
--- NOTE | 2022-06-07 19:32 | XR ---
EXAMINATION TYPE: XR soft tissue neck DATE OF EXAM: 06/07/2022 COMPARISON: NONE HISTORY: Swelling in the throat TECHNIQUE: 2 view FINDINGS: Epiglottis is normal. Prevertebral soft tissues appear normal. The subglottic trachea appea rs normal. Tonsils and adenoids are normal. No sign of a foreign body. IMPRESSION: Negative cervical soft tissue exam.
[2022-06-07 19:35] LABS: Potassium 4.9 mmol/L (3.5-5.1)
== END 2022-06-07 20:45 | disposition home or self-care (01) ==
LOC: EC 17:32
DX: T78.40XA Allergy, unspecified, initial encounter (principal); R11.10 Vomiting, unspecified; E11.36 Type 2 diabetes mellitus with diabetic cataract; E78.5 Hyperlipidemia, unspecified; I10 Essential (primary) hypertension; K21.9 Gastro-esophageal reflux disease without esophagitis; M19.90 Unspecified osteoarthritis, unspecified site; Z79.02 Long term (current) use of antithrombotics/antiplatelets; Z79.84 Long term (current) use of oral hypoglycemic drugs; Z79.899 Other long term (current) drug therapy; Z88.1 Allergy status to other antibiotic agents; Z88.2 Allergy status to sulfonamides; Z88.8 Allergy status to other drugs, medicaments and biological substances
CPT/HCPCS: 36415; 80053; 85025; 70360; 99283; 96374; J2405